=== PATIENT | female | born 1930 | race Caucasian/White ===

== ENCOUNTER 2016-11-24 15:24 | Inpatient (IN) | payer MEDICARE, OTHER ==
[~2016-11-24] VITALS: Ht 152.4 cm; Wt 45.4 kg
[2016-11-24 15:24] VITALS: BP 124/84
[~2016-11-24 15:24] MED LIST: AMIODARONE HCL100 MG ORAL; AMIODARONE HCL200 MG ORAL; AMIODARONE HCL400 M1 ORAL; ASPIR-LOW81 MG PO; AZITHROMYCIN500 MG PO; CRESTOR20 MG PO; DONEPEZIL HCL5 M2 ORAL; FEMARA2.5 MG PO; HYDRALAZINE HCL25 M1 PO; LEVOTHROID25 MCG PO; METOPROLOL TART25 MG PO; METRONIDAZOLE500 MG ORAL; SIMVASTATIN20 MG ORAL; VITAMIN B COMP1 EAC2 ORAL; VITAMIN D1000 UNI1 ORAL
[2016-11-24] MEDS ORDERED: ASPIR 8181 MG ORAL (15:25)
[2016-11-24] MEDS ORDERED: AMIODARONE HCL400 M1 ORAL (15:25)
[2016-11-24 16:20] VITALS: BP 128/74
--- NOTE | 2016-11-24 16:31 | Diagnostic Imaging Report ---
Indication: PAIN Technique: One view of the pelvis, 2 views of the left hip Comparison: None Findings: There is a comminuted intertrochanteric fracture of the left hip. Again demonstrated are old healed fracture deformities of the bilateral inferior and right superior pubic rami. Right hip appears intact. There are degenerative changes of the lumbosacral junction Impression: Positive for left hip comminuted intertrochanteric fracture Old pelvic fractures, also previously described
--- NOTE | 2016-11-24 16:33 | Diagnostic Imaging Report ---
Indication: PAIN Technique: 3 views of the left knee Comparison: None Findings:There are severe degenerative changes of the medial and lateral compartment. There is marked degenerative remodeling of the medial femur and medial tibia. Ossific densities injection of the knee joint likely reflect intra-articular loose bodies. There is suggestion of a suprapatellar effusion. No definite acute fractures. No dislocations. There are vascular calcifications Impression:No definite acute bony trauma Profound degenerative changes, as described Suspect intra-articular loose bodies Suspect joint effusion
[2016-11-24 17:12] LABS: BASOPHILS % (AUTO) 0.8 % (0.0-2.0); EOSINOPHILS % (AUTO) 0.7 % (0.0-3.0); MEAN CORPUSCULAR HEMOGLOBIN 32.5 PG (27.0-31.0); MEAN CORPUSCULAR HGB CONC 33.9 G/DL (32.0-36.0); MEAN CORPUSCULAR VOLUME 96 FL (80-99); MEAN PLATELET VOLUME 6.3 FL (6.5-10.1); MONOCYTES % (AUTO) 5.8 % (1.0-10.0); NEUTROPHILS % (AUTO) 77.7 % (45.0-75.0); PLATELET COUNT 210 K/UL (150-450); RED BLOOD COUNT 3.08 M/UL (4.20-5.40); RED CELL DISTRIBUTION WIDTH 15.4 % (11.6-14.8); WHITE BLOOD COUNT 8.8 K/UL (4.8-10.8)
[2016-11-24 17:17] LABS: PROTHROMBIN TIME 10.3 SEC (9.30-11.50)
[2016-11-24 17:29] LABS: ALANINE AMINOTRANSFERASE 9 U/L (3-33); ALBUMIN/GLOBULIN RATIO 1.6 (1.0-2.7); ANION GAP 12 (5-15); ASPARTATE AMINO TRANSFERASE 14 U/L (5-40); CALCIUM 9.6 mg/dL (8.6-10.2); CARBON DIOXIDE 24 mEQ/L (20-30); CHLORIDE 103 mEQ/L (98-107); CREATININE 2.7 mg/dL (0.5-0.9); HEMOLYSIS 3; POTASSIUM 4.8 mEQ/L (3.4-4.9); SODIUM 139 mEQ/L (135-145); TOTAL PROTEIN 5.3 g/dL (6.6-8.7)
[2016-11-24 17:53] VITALS: BP 124/84
[2016-11-24 19:30] VITALS: BP 120/78
[2016-11-24 20:05] VITALS: BP 137/95
[2016-11-24] MEDS ORDERED: Zolpidem 5mg tab ORAL PRN (21:15)
[2016-11-24] MEDS ORDERED: Mylanta II UD 30ml ORAL PRN (21:15)
[2016-11-24] MEDS ORDERED: Miralax 17gm pkt ORAL PRN (21:15)
[2016-11-24] MEDS ORDERED: LORazepam Inj 2mg/ml 1ml IV PRN (21:15)
[2016-11-24] MEDS: D5 1/2NS 1,000 ML IV SCH (21:55)
[2016-11-24] MEDS: Heparin 5000 units/ml inj SUBQ SCH (22:30)
--- NOTE | 2016-11-24 23:46 | Emergency Room Report ---
History of Present Illness General Chief Complaint: Lower Extremity Injury Source: Patient, Family Member - Daughter, EMS (GREG FOY) Present Illness HPI The patient is an 86-year-old female with a history of dementia brought in by EMS and accompanied by daughter for left hip pain. The patient was said to be ambulating via Walker and fell onto the left hip from ground level. Patient is unable to express level of pain. The patient does not provide any history. The daughter states patient did not hit her head or lose consciousness. She denies any other symptoms for the patient (GREG FOY P.AMiriam) Allergies: Coded Allergies: MORPHINE (Verified Allergy, Mild, 03/02/09) HYDROMORPHONE (Verified Allergy, Unknown, 01/13/11) Patient History Past Medical History: see triage record Pertinent Family History: none Reviewed Nursing Documentation: PMH: Agreed, PSxH: Agreed (GREG FOY) Nursing Documentation-PMH Hx Cardiac Problems: Yes - afib, arthitis, kidney prob Hx Hypertension: Yes Hx COPD: Yes Hx Cancer: Yes Hx Gastrointestinal Problems: Yes Hx Dialysis: Yes - non-specfic kdney issue Hx Neurological Problems: Yes - dementia Hx Dementia: Yes Hx Dizziness: Yes Hx Syncope: Yes Hx Weakness: Yes (GREG FOY PMiriamAMiriam) Review of Systems All Other Systems: limited (GREG FOY.AMiriam) Physical Exam Vital Signs Date Time Temp Pulse Resp B/P (MAP) Pulse Ox O2 Delivery O2 Flow Rate FiO2 11/24/16 15:19 98.4 84 16 124/84 99 Room Air Sp02 EP Interpretation: reviewed, normal General Appearance: alert, GCS 15 Head: normocephalic, atraumatic Eyes: bilateral eye normal inspection, bilateral eye PERRL ENT: hearing grossly normal, normal pharynx, no angioedema, normal voice Neck: full range of motion, supple/symm/no masses Respiratory: chest non-tender, lungs clear, normal breath sounds, speaking full sentences Cardiovascular #1: regular rate, rhythm, no edema Gastrointestinal: normal bowel sounds, non tender, soft, non-distended, no guarding, no rebound Musculoskeletal: normal inspection, decreased range of motion, tender - TTP over the L inguinal region and L lateral hip Neurologic: responsive, sensory intact Skin: normal color, no rash, warm/dry, well hydrated (GREG FOY) Medical Decision Making PA Attestation Dr. Serrano is my supervising physician. Patient management was discussed with my supervising physician (GREG FOY) Medicare Attestation The history of Juana Mendez has been reviewed and management options for her have been examined and discussed by Allie Serrano. I have personally examined and interviewed the patient. (ALLIE SERRANO D.O.) Diagnostic Impression: Primary Impression: Hip fracture, intertrochanteric Qualified Codes: S72.145A - Nondisplaced intertrochanteric fracture of left femur, initial encounter for closed fracture ER Course The patient is an 86-year-old female presenting for left hip pain after fall Ddx considered include but not limited to sprain/strain, fracture, contusion Physical exam: Patient with dementia. Unable to follow commands. There is noted tenderness to palpation over the left inguinal region and left lateral hip. No rotation of the leg. No shortening. Sensation intact Normal cap refill X-ray and CT shows comminuted fracture of the left trochanter. The patient will be admitted in stable condition. The daughter agrees with this plan. Dr. Serrano Has spoken with the admitting physician she will be admitted in serious but stable condition. Laboratory Tests Test 11/24/16 16:50 White Blood Count 8.8 K/UL (4.8-10.8) Red Blood Count 3.08 M/UL (4.20-5.40) L Hemoglobin 10.0 G/DL (12.0-16.0) L Hematocrit 29.5 % (37.0-47.0) L Mean Corpuscular Volume 96 FL (80-99) Mean Corpuscular Hemoglobin 32.5 PG (27.0-31.0) H Mean Corpuscular Hemoglobin Concent 33.9 G/DL (32.0-36.0) Red Cell Distribution Width 15.4 % (11.6-14.8) H Platelet Count 210 K/UL (150-450) Mean Platelet Volume 6.3 FL (6.5-10.1) L Neutrophils (%) (Auto) 77.7 % (45.0-75.0) H Lymphocytes (%) (Auto) 15.0 % (20.0-45.0) L Monocytes (%) (Auto) 5.8 % (1.0-10.0) Eosinophils (%) (Auto) 0.7 % (0.0-3.0) Basophils (%) (Auto) 0.8 % (0.0-2.0) Prothrombin Time 10.3 SEC (9.30-11.50) Prothrombin Time INR 1.0 (0.9-1.1) PTT 29 SEC (23-33) Sodium Level 139 mEQ/L (135-145) Potassium Level 4.8 mEQ/L (3.4-4.9) Chloride Level 103 mEQ/L (98-107) Carbon Dioxide Level 24 mEQ/L (20-30) Anion Gap 12 (5-15) Blood Urea Nitrogen 25 mg/dL (7-23) H Creatinine 2.7 mg/dL (0.5-0.9) H Estimate Glomerular Filtration Rate mL/min (>60) Glucose Level 126 mg/dL (74-106) H Calcium Level 9.6 mg/dL (8.6-10.2) Total Bilirubin 0.2 mg/dL (0.0-1.2) Aspartate Amino Transferase (AST) 14 U/L (5-40) Alanine Aminotransferase (ALT) 9 U/L (3-33) Alkaline Phosphatase 58 U/L (35-104) Total Protein 5.3 g/dL (6.6-8.7) L Albumin 3.3 g/dL (3.5-5.2) L Globulin 2.0 g/dL Albumin/Globulin Ratio 1.6 (1.0-2.7) Lab Results Impression CBC shows no leukocytosis. There is mild anemia CMP shows significantly elevated BUN/Cr Coags unremarkable (GREG FOY P.A.) Chest X-Ray Diagnostic Results Chest X-Ray Diagnostic Results : Chest X-Ray Ordered: Yes # of Views/Limited/Complete: 1 View Indication: Other - fall EP Interpretation: Yes Interpretation: no consolidation, no effusion, no pneumothorax, no acute cardiopulmonary disease Impression: No acute disease Electronically Signed by: Denise Serrano DO (GREG FOY P.A.) Other X-Ray Diagnostic Results Other X-Ray Diagnostic Results #1: X-Ray ordered: L hip # of Views/Limited Vs Complete: 2 View Indication: Pain EP Interpretation: Yes Interpretation: no dislocation, other - + fracture Impression: Other - intertrochanteric fracture Electronically Signed by: DO GRAHAM Carroll Scribe Text I am acting as scribe for my supervising physician. My supervising physician's interpretation of the left hip x-rays shows intertrochanteric fracture Other X-Ray Diagnostic Results #2: X-Ray ordered: AP Pelvis # of Views/Limited Vs Complete: 1 View Indication: Pain EP Interpretation: Yes Interpretation: no dislocation, no soft tissue swelling, other - + Fracture Impression: Other - L Intertrochanteric fracture Electronically Signed by: DO GRAHAM Carroll Scribe Text I am acting as scribe for my supervising physician. My supervising physician's interpretation of the hip x-rays shows intertrochanteric fracture (GREG FOY) CT/MRI/US Diagnostic Results CT/MRI/US Diagnostic Results : Imaging Test Ordered: CT pelvis Impression There is an acute fracture of the left trochanter (GREG FOY) Last Vital Signs Date Time Temp Pulse Resp B/P (MAP) Pulse Ox O2 Delivery O2 Flow Rate FiO2 11/24/16 22:53 98.1 11/24/16 20:05 61 18 137/95 100 Room Air Status: improved (GREG FOY) Disposition: ADMITTED INPATIENT Condition: Stable Referrals: NON PHYSICIAN (PCP) GREG FOY Nov 24, 2016 23:45 ALLIE SERRANO D.O. Nov 25, 2016 18:18
[2016-11-25 04:00] VITALS: BP 133/84
[2016-11-25 06:25] LABS: BASOPHILS % (AUTO) 0.6 % (0.0-2.0); EOSINOPHILS % (AUTO) 0.6 % (0.0-3.0); LYMPHOCYTES % (AUTO) 17.5 % (20.0-45.0); MEAN CORPUSCULAR HEMOGLOBIN 32.2 PG (27.0-31.0); MEAN CORPUSCULAR HGB CONC 33.8 G/DL (32.0-36.0); MEAN CORPUSCULAR VOLUME 95 FL (80-99); MEAN PLATELET VOLUME 6.3 FL (6.5-10.1); MONOCYTES % (AUTO) 6.7 % (1.0-10.0); NEUTROPHILS % (AUTO) 74.6 % (45.0-75.0); PLATELET COUNT 206 K/UL (150-450); RED BLOOD COUNT 3.08 M/UL (4.20-5.40); RED CELL DISTRIBUTION WIDTH 14.8 % (11.6-14.8); WHITE BLOOD COUNT 9.5 K/UL (4.8-10.8)
[2016-11-25 06:38] LABS: ALANINE AMINOTRANSFERASE 10 U/L (3-33); ALBUMIN/GLOBULIN RATIO 1.7 (1.0-2.7); ANION GAP 11 (5-15); ASPARTATE AMINO TRANSFERASE 13 U/L (5-40); CALCIUM 9.6 mg/dL (8.6-10.2); CARBON DIOXIDE 24 mEQ/L (20-30); CHLORIDE 105 mEQ/L (98-107); CREATININE 2.6 mg/dL (0.5-0.9); HEMOLYSIS 0; POTASSIUM 4.9 mEQ/L (3.4-4.9); SODIUM 140 mEQ/L (135-145); TOTAL PROTEIN 5.2 g/dL (6.6-8.7)
[2016-11-25 08:33] VITALS: BP 130/53
--- NOTE | 2016-11-25 08:37 | Consultation ---
History of Present Illness General Date patient seen: Nov 25, 2016 Present Illness Allergies: Coded Allergies: MORPHINE (Verified Allergy, Mild, 03/02/09) HYDROMORPHONE (Verified Allergy, Unknown, 01/13/11) Medication History Scheduled Amiodarone Hcl (Amiodarone Hcl), 100 MG ORAL DAILY, (Reported) Amiodarone Hcl* (Amiodarone Hcl*), 400 MG ORAL EVERY 12 HOURS, (Reported) Aspirin* (Aspir-Low*), 81 MG PO DAILY, (Reported) Aspirin* (Aspir 81*), 81 MG ORAL DAILY, (Reported) Cholecalciferol (Vitamin D3)* (Vitamin D*), 5,000 UNIT ORAL DAILY, (Reported) Donepezil Hcl* (Donepezil Hcl*), 5 MG ORAL DAILY, (Reported) Letrozole (Femara), 2.5 MG PO DAILY, (Reported) Levothyroxine Sodium* (Levothroid*), MCG PO DAILY, (Reported) Simvastatin (Zocor), 20 MG ORAL BEDTIME, (Reported) Vitamin B Complex (Vitamin B Complex), 2 CAP ORAL DAILY, (Reported) Patient History Healthcare decision maker Resuscitation status Full Code Advanced Directive on File Physical Exam Last 24 Hour Vital Signs Date Time Temp Pulse Resp B/P (MAP) Pulse Ox O2 Delivery O2 Flow Rate FiO2 11/25/16 08:33 97.8 61 20 130/53 97 Room Air 11/25/16 04:00 98.2 67 20 133/84 98 Room Air 11/24/16 22:53 98.1 11/24/16 20:05 98.1 61 18 137/95 100 Room Air 11/24/16 19:53 98.4 80 17 120/78 98 Room Air 11/24/16 19:30 98.4 80 17 120/78 98 Room Air 11/24/16 17:53 98.4 16 124/84 99 Room Air 11/24/16 16:48 98.4 11/24/16 16:20 98.1 84 16 128/74 98 Room Air 11/24/16 15:24 98.4 16 124/84 99 Room Air 11/24/16 15:19 98.4 84 16 124/84 99 Room Air Laboratory Tests Test 11/24/16 16:50 11/25/16 05:30 White Blood Count 8.8 K/UL (4.8-10.8) 9.5 K/UL (4.8-10.8) Red Blood Count 3.08 M/UL (4.20-5.40) L 3.08 M/UL (4.20-5.40) L Hemoglobin 10.0 G/DL (12.0-16.0) L 9.9 G/DL (12.0-16.0) L Hematocrit 29.5 % (37.0-47.0) L 29.3 % (37.0-47.0) L Mean Corpuscular Volume 96 FL (80-99) 95 FL (80-99) Mean Corpuscular Hemoglobin 32.5 PG (27.0-31.0) H 32.2 PG (27.0-31.0) H Mean Corpuscular Hemoglobin Concent 33.9 G/DL (32.0-36.0) 33.8 G/DL (32.0-36.0) Red Cell Distribution Width 15.4 % (11.6-14.8) H 14.8 % (11.6-14.8) Platelet Count 210 K/UL (150-450) 206 K/UL (150-450) Mean Platelet Volume 6.3 FL (6.5-10.1) L 6.3 FL (6.5-10.1) L Neutrophils (%) (Auto) 77.7 % (45.0-75.0) H 74.6 % (45.0-75.0) Lymphocytes (%) (Auto) 15.0 % (20.0-45.0) L 17.5 % (20.0-45.0) L Monocytes (%) (Auto) 5.8 % (1.0-10.0) 6.7 % (1.0-10.0) Eosinophils (%) (Auto) 0.7 % (0.0-3.0) 0.6 % (0.0-3.0) Basophils (%) (Auto) 0.8 % (0.0-2.0) 0.6 % (0.0-2.0) Prothrombin Time 10.3 SEC (9.30-11.50) Prothromb Time International Ratio 1.0 (0.9-1.1) Activated Partial Thromboplast Time 29 SEC (23-33) Sodium Level 139 mEQ/L (135-145) 140 mEQ/L (135-145) Potassium Level 4.8 mEQ/L (3.4-4.9) 4.9 mEQ/L (3.4-4.9) Chloride Level 103 mEQ/L (98-107) 105 mEQ/L (98-107) Carbon Dioxide Level 24 mEQ/L (20-30) 24 mEQ/L (20-30) Anion Gap 12 (5-15) 11 (5-15) Blood Urea Nitrogen 25 mg/dL (7-23) H 24 mg/dL (7-23) H Creatinine 2.7 mg/dL (0.5-0.9) H 2.6 mg/dL (0.5-0.9) H Estimat Glomerular Filtration Rate mL/min (>60) mL/min (>60) Glucose Level 126 mg/dL (74-106) H 129 mg/dL (74-106) H Calcium Level 9.6 mg/dL (8.6-10.2) 9.6 mg/dL (8.6-10.2) Total Bilirubin 0.2 mg/dL (0.0-1.2) 0.4 mg/dL (0.0-1.2) Aspartate Amino Transf (AST/SGOT) 14 U/L (5-40) 13 U/L (5-40) Alanine Aminotransferase (ALT/SGPT) 9 U/L (3-33) 10 U/L (3-33) Alkaline Phosphatase 58 U/L (35-104) 61 U/L (35-104) Total Protein 5.3 g/dL (6.6-8.7) L 5.2 g/dL (6.6-8.7) L Albumin 3.3 g/dL (3.5-5.2) L 3.3 g/dL (3.5-5.2) L Globulin 2.0 g/dL 1.9 g/dL Albumin/Globulin Ratio 1.6 (1.0-2.7) 1.7 (1.0-2.7) Thyroid Stimulating Hormone (TSH) 2.590 uIU/mL (0.300-4.500) Height (Feet): 5 Height (Inches): 0.00 Weight (Pounds): 100 Medications Current Medications Medications (Trade) Dose Ordered Sig/Dustin Route PRN Reason Start Time Stop Time Status Last Admin Dose Admin Acetaminophen (Tylenol) 650 mg Q4H PRN ORAL fever 11/24/16 21:15 12/24/16 21:14 11/24/16 21:54 Al Hydroxide/Mg Hydroxide (Mylanta II) 30 ml Q6H PRN ORAL dyspepsia 11/24/16 21:15 12/24/16 21:14 Amiodarone HCl (Cordarone) 100 mg DAILY ORAL 11/25/16 09:00 12/25/16 08:59 Dextrose (Dextrose 50%) STAT PRN IV Hypoglycemia 11/24/16 21:15 12/24/16 21:14 Dextrose/Sodium Chloride 1,000 ml @ 50 mls/hr Q20H IV 11/24/16 21:45 12/24/16 21:44 11/24/16 21:55 Donepezil HCl (Aricept) 5 mg DAILY ORAL 11/25/16 09:00 12/25/16 08:59 Heparin Sodium (Porcine) (Heparin 5000 units/ml) 5,000 units EVERY 12 HOURS SUBQ 11/24/16 22:30 12/24/16 22:29 Lorazepam (Ativan 2mg/ml 1ml) 0.5 mg Q4H PRN IV For Anxiety 11/24/16 21:15 12/01/16 21:14 Ondansetron HCl (Zofran) 4 mg Q6H PRN IVP Nausea & Vomiting 11/24/16 21:15 12/24/16 21:14 Polyethylene Glycol (Miralax) 17 gm HSPRN PRN ORAL Constipation 11/24/16 21:15 12/24/16 21:14 Zolpidem Tartrate (Ambien) 5 mg HSPRN PRN ORAL Insomnia 11/24/16 21:15 12/01/16 21:14 Assessment/Plan Assessment/Plan (1) Left hip pain (2) Left hip fracture (3) Arthritis seen dictated SANTIAGO SANTOS Nov 25, 2016 08:37
[2016-11-25] MEDS: Amiodarone 200mg tab ORAL SCH (08:56)
[2016-11-25] MEDS: Heparin 5000 units/ml inj SUBQ SCH ×2 (08:58→20:18)
[2016-11-25] MEDS: Donepezil 5mg Tab ORAL SCH (09:00)
[2016-11-25 11:38] VITALS: BP 97/56
[2016-11-25] MEDS: D5 1/2NS 1,000 ML IV SCH (12:06)
--- NOTE | 2016-11-25 12:37 | Diagnostic Imaging Report ---
Indication: Chest pain Comparison: 05/22/15 A single view chest radiograph was obtained. Findings: There is a left arm port with tip in the right atrium in good position. The bones are osteopenic. Lungs are clear. Borderline cardiomegaly is present. Scoliosis of the thoracolumbar spine demonstrated. Surgical clips in the right upper quadrant of the abdomen noted. Impression: No acute cardiopulmonary abnormalities.
--- NOTE | 2016-11-25 15:51 | History and Physical ---
History of Present Illness General Date patient seen: Nov 25, 2016 Reason for Hospitalization: Lower Extremity Injury Present Illness HPI 86 year old female with hx of advanced dementia, brought in to [facility] er after an episode of fall. Pt was diagnosed to have a hip fracture. Pts daughter wants her to be transferred to [facility] and have surgery there. Pt looks cachectic and older than her biological age. Allergies: Coded Allergies: MORPHINE (Verified Allergy, Mild, 03/02/09) HYDROMORPHONE (Verified Allergy, Unknown, 01/13/11) Medication History Scheduled Amiodarone Hcl (Amiodarone Hcl), 100 MG ORAL DAILY, (Reported) Amiodarone Hcl* (Amiodarone Hcl*), 400 MG ORAL EVERY 12 HOURS, (Reported) Aspirin* (Aspir-Low*), 81 MG PO DAILY, (Reported) Aspirin* (Aspir 81*), 81 MG ORAL DAILY, (Reported) Cholecalciferol (Vitamin D3)* (Vitamin D*), 5,000 UNIT ORAL DAILY, (Reported) Donepezil Hcl* (Donepezil Hcl*), 5 MG ORAL DAILY, (Reported) Letrozole (Femara), 2.5 MG PO DAILY, (Reported) Levothyroxine Sodium* (Levothroid*), MCG PO DAILY, (Reported) Simvastatin (Zocor), 20 MG ORAL BEDTIME, (Reported) Vitamin B Complex (Vitamin B Complex), 2 CAP ORAL DAILY, (Reported) Patient History Healthcare decision maker Resuscitation status Full Code Advanced Directive on File Past Medical/Surgical History Past Medical/Surgical History: (1) Dementia (2) Hypothyroid (3) Breast cancer Review of Systems All Other Systems: negative except mentioned in HPI Physical Exam General Appearance: cachetic Lines, tubes and drains: peripheral HEENT: normocephalic, atraumatic Neck: non-tender, normal alignment Respiratory/Chest: chest wall non-tender, lungs clear Breasts: no masses Cardiovascular/Chest: normal peripheral pulses, normal rate Abdomen: normal bowel sounds Genitourinary/Rectal: normal genital exam Extremities: normal range of motion, non-tender Skin Exam: normal pigmentation Neurologic: dukey rider II-XII grossly normal, no motor/sensory deficits Lymphatic: anterior cervical Last 24 Hour Vital Signs Date Time Temp Pulse Resp B/P (MAP) Pulse Ox O2 Delivery O2 Flow Rate FiO2 11/25/16 11:38 97.6 69 20 97/56 96 Room Air 11/25/16 10:12 97.6 11/25/16 08:33 97.8 61 20 130/53 97 Room Air 11/25/16 04:00 98.2 67 20 133/84 98 Room Air 11/24/16 22:53 98.1 11/24/16 20:05 98.1 61 18 137/95 100 Room Air 11/24/16 19:53 98.4 80 17 120/78 98 Room Air 11/24/16 19:30 98.4 80 17 120/78 98 Room Air 11/24/16 17:53 98.4 16 124/84 99 Room Air 11/24/16 16:48 98.4 11/24/16 16:20 98.1 84 16 128/74 98 Room Air Intake and Output 11/25/16 11/26/16 19:00 07:00 Intake Total 220 ml Output Total 350 ml Balance -130 ml Intake Oral 220 ml Output Urine Total 350 ml Laboratory Tests Test 11/24/16 16:50 11/25/16 05:30 White Blood Count 8.8 K/UL (4.8-10.8) 9.5 K/UL (4.8-10.8) Red Blood Count 3.08 M/UL (4.20-5.40) L 3.08 M/UL (4.20-5.40) L Hemoglobin 10.0 G/DL (12.0-16.0) L 9.9 G/DL (12.0-16.0) L Hematocrit 29.5 % (37.0-47.0) L 29.3 % (37.0-47.0) L Mean Corpuscular Volume 96 FL (80-99) 95 FL (80-99) Mean Corpuscular Hemoglobin 32.5 PG (27.0-31.0) H 32.2 PG (27.0-31.0) H Mean Corpuscular Hemoglobin Concent 33.9 G/DL (32.0-36.0) 33.8 G/DL (32.0-36.0) Red Cell Distribution Width 15.4 % (11.6-14.8) H 14.8 % (11.6-14.8) Platelet Count 210 K/UL (150-450) 206 K/UL (150-450) Mean Platelet Volume 6.3 FL (6.5-10.1) L 6.3 FL (6.5-10.1) L Neutrophils (%) (Auto) 77.7 % (45.0-75.0) H 74.6 % (45.0-75.0) Lymphocytes (%) (Auto) 15.0 % (20.0-45.0) L 17.5 % (20.0-45.0) L Monocytes (%) (Auto) 5.8 % (1.0-10.0) 6.7 % (1.0-10.0) Eosinophils (%) (Auto) 0.7 % (0.0-3.0) 0.6 % (0.0-3.0) Basophils (%) (Auto) 0.8 % (0.0-2.0) 0.6 % (0.0-2.0) Prothrombin Time 10.3 SEC (9.30-11.50) Prothromb Time International Ratio 1.0 (0.9-1.1) Activated Partial Thromboplast Time 29 SEC (23-33) Sodium Level 139 mEQ/L (135-145) 140 mEQ/L (135-145) Potassium Level 4.8 mEQ/L (3.4-4.9) 4.9 mEQ/L (3.4-4.9) Chloride Level 103 mEQ/L (98-107) 105 mEQ/L (98-107) Carbon Dioxide Level 24 mEQ/L (20-30) 24 mEQ/L (20-30) Anion Gap 12 (5-15) 11 (5-15) Blood Urea Nitrogen 25 mg/dL (7-23) H 24 mg/dL (7-23) H Creatinine 2.7 mg/dL (0.5-0.9) H 2.6 mg/dL (0.5-0.9) H Estimat Glomerular Filtration Rate mL/min (>60) mL/min (>60) Glucose Level 126 mg/dL (74-106) H 129 mg/dL (74-106) H Calcium Level 9.6 mg/dL (8.6-10.2) 9.6 mg/dL (8.6-10.2) Total Bilirubin 0.2 mg/dL (0.0-1.2) 0.4 mg/dL (0.0-1.2) Aspartate Amino Transf (AST/SGOT) 14 U/L (5-40) 13 U/L (5-40) Alanine Aminotransferase (ALT/SGPT) 9 U/L (3-33) 10 U/L (3-33) Alkaline Phosphatase 58 U/L (35-104) 61 U/L (35-104) Total Protein 5.3 g/dL (6.6-8.7) L 5.2 g/dL (6.6-8.7) L Albumin 3.3 g/dL (3.5-5.2) L 3.3 g/dL (3.5-5.2) L Globulin 2.0 g/dL 1.9 g/dL Albumin/Globulin Ratio 1.6 (1.0-2.7) 1.7 (1.0-2.7) Thyroid Stimulating Hormone (TSH) 2.590 uIU/mL (0.300-4.500) Height (Feet): 5 Height (Inches): 0.00 Weight (Pounds): 100 Medications Current Medications Medications (Trade) Dose Ordered Sig/Dustin Route PRN Reason Start Time Stop Time Status Last Admin Dose Admin Acetaminophen (Tylenol) 650 mg Q4H PRN ORAL fever or pain 11/25/16 09:15 12/25/16 09:14 11/25/16 09:13 Al Hydroxide/Mg Hydroxide (Mylanta II) 30 ml Q6H PRN ORAL dyspepsia 11/24/16 21:15 12/24/16 21:14 Amiodarone HCl (Cordarone) 100 mg DAILY ORAL 11/25/16 09:00 12/25/16 08:59 11/25/16 08:56 Dextrose (Dextrose 50%) STAT PRN IV Hypoglycemia 11/24/16 21:15 12/24/16 21:14 Dextrose/Sodium Chloride 1,000 ml @ 50 mls/hr Q20H IV 11/24/16 21:45 12/24/16 21:44 11/25/16 12:06 Donepezil HCl (Aricept) 5 mg DAILY ORAL 11/25/16 09:00 12/25/16 08:59 Heparin Sodium (Porcine) (Heparin 5000 units/ml) 5,000 units EVERY 12 HOURS SUBQ 11/24/16 22:30 12/24/16 22:29 11/25/16 08:58 Levothyroxine Sodium (Synthroid) 25 mcg DAILY@0630 ORAL 11/26/16 06:30 12/26/16 06:29 Lidocaine (Lidoderm 5% PATCH) 1 patch DAILY TDERMAL 11/25/16 09:30 12/25/16 09:29 11/25/16 11:34 Lorazepam (Ativan 2mg/ml 1ml) 0.5 mg Q4H PRN IV For Anxiety 11/24/16 21:15 12/01/16 21:14 Ondansetron HCl (Zofran) 4 mg Q6H PRN IVP Nausea & Vomiting 11/24/16 21:15 12/24/16 21:14 Polyethylene Glycol (Miralax) 17 gm HSPRN PRN ORAL Constipation 11/24/16 21:15 12/24/16 21:14 Zolpidem Tartrate (Ambien) 5 mg HSPRN PRN ORAL Insomnia 11/24/16 21:15 12/01/16 21:14 Assessment/Plan Problem List: (1) Hip fracture, intertrochanteric ICD Codes: S72.143A - Displaced intertrochanteric fracture of unspecified femur , initial encounter for closed fracture SNOMED: 767079927 Qualifiers: Qualified Codes: S72.145A - Nondisplaced intertrochanteric fracture of left femur, initial encounter for closed fracture (2) Dementia ICD Codes: F03.90 - Unspecified dementia without behavioral disturbance SNOMED: [id number] (3) Hypothyroid ICD Codes: E03.9 - Hypothyroidism, unspecified SNOMED: 30218545 Assessment/Plan symptomatic treatment pain control case management try to transfer to [facility]. dvt prophylaxis. GILLES ALVAREZ Nov 25, 2016 15:50
[2016-11-25 16:08] VITALS: BP 110/63
[2016-11-25 16:54] LABS: URIC ACID 4.8 mg/dL (3.0-7.5)
--- NOTE | 2016-11-25 17:16 | Consultation ---
DATE OF CONSULTATION: 11/25/2016 PAIN MANAGEMENT CONSULTATION CONSULTING PHYSICIAN: Sugar Anglin M.D. REFERRING PHYSICIAN: Mateo Pearson M.D. PHYSICIAN COMMERCIAL COLLECTOR: Daniel Cuadra CHIEF COMPLAINT: Left hip pain. History Of Present Illness: This is an 86-year-old female, who is being seen on the Med/Surg floor of [facility] for initial comprehensive pain management consultation. The patient is in bed, nonverbal at this time due to the history of dementia. The patient's daughter is at bedside. The patient's daughter reports that the patient had a fall, injuring her left hip, found to have on x-ray a fracture, and was admitted under the care of Dr. Pearson, at this time waiting Orthopedic consultation, possible transfer to the [facility]. At this time, the patient is in bed, no signs of pain, receiving Tylenol as needed. The patient's daughter reports that patient has been allergic to morphine and hydromorphone and does not want the patient to have any narcotics at this time. Discussed with the patient's daughter about possible Lidoderm patch and the patient's daughter agrees. The patient again is in the bed, no signs of pain or distress at this time. Past Medical History: Atrial fibrillation, arthritis, kidney problems, hypertension, COPD, history of lymphoma, GERD, and dementia. PAST SURGICAL HISTORY: Gallbladder removal and cataract surgery. ALLERGIES: Morphine and hydromorphone. Social History: As per daughter smoking cigarettes, drinking alcohol, and IV drug abuse. Review Of Systems: Unable to obtain due to the patient's mental status. PHYSICAL EXAMINATION: GENERAL: Alert, awake, and oriented. Vital Signs: Blood pressure 130/53, heart rate is 61, oxygen saturation 97%, respiratory rate is 20, and temperature is 97.8 degrees Fahrenheit. HEENT: PERRLA. Neck: Range of motion is full in all directions. No tenderness to paracervical muscles. No adenopathy. LUNGS: Clear. HEART: S1 and S2 is regular. ABDOMEN: Benign. Back: Range of motion is full in flexion and extension with no tenderness to paracervical muscles, trapezius, or rhomboid muscles. Extremities: Upper extremity range of motion is full in all directions. Motor is intact. No cyanosis. No clubbing. No edema. Sensory is intact. Reflexes are unobtainable. No adenopathy. Lower extremity range of motion is decreased due to the patient's medical condition with tenderness to palpation of the left hip. No cyanosis. No clubbing. Sensory is intact. Reflexes are unobtainable. No adenopathy. Assessment And Plan: This is an 86-year-old female with left hip pain, left hip fracture, and arthritis. The patient will be continued on Tylenol as needed 650 mg tablet every four hours as needed for pain and we will order a Lidoderm patch to be applied to the left hip at the site of the pain 12 hours on and 12 hours off. The patient to be seen by Orthopedic surgeon. The patient was discussed with Dr. Anglin and Dr. Anglin concurred. We will follow the patient. Thank you very much for the courtesy of this consultation. Sugar Anglin M.D. GRAHAM Cuadra DR: LUNA JOB#: [id number] CC:
[2016-11-25 20:00] VITALS: BP 117/59
[2016-11-26] VITALS: BP 127/55
[2016-11-26] MEDS ORDERED: Levothyroxine 25mcg tab ORAL SCH (06:30)
[2016-11-26 06:47] LABS: BASOPHILS % (AUTO) 0.5 % (0.0-2.0); EOSINOPHILS % (AUTO) 0.5 % (0.0-3.0); LYMPHOCYTES % (AUTO) 14.1 % (20.0-45.0); MEAN CORPUSCULAR HGB CONC 32.4 G/DL (32.0-36.0); MEAN CORPUSCULAR VOLUME 96 FL (80-99); MEAN PLATELET VOLUME 5.8 FL (6.5-10.1); MONOCYTES % (AUTO) 5.6 % (1.0-10.0); NEUTROPHILS % (AUTO) 79.4 % (45.0-75.0); PLATELET COUNT 205 K/UL (150-450); RED BLOOD COUNT 3.14 M/UL (4.20-5.40); RED CELL DISTRIBUTION WIDTH 15.3 % (11.6-14.8); WHITE BLOOD COUNT 10.2 K/UL (4.8-10.8)
[2016-11-26] MEDS: D5 1/2NS 1,000 ML IV SCH (06:54)
[2016-11-26 07:08] LABS: LACTATE DEHYDROGENASE 162 U/L (135-230)
[2016-11-26 07:35] LABS: HEMOLYSIS 0; IRON 29 ug/dL (37-145); TOTAL IRON BINDING CAPACITY 143 ug/dL (250-400)
--- NOTE | 2016-11-26 08:12 | General Progress Note ---
Assessment/Plan Assessment/Plan (1) Left hip pain (2) Left hip fracture (3) Arthritis Pt to be continued on current medications. Awaiting Ortho Eval. D/w Dr. Anglin and he concurred. Subjective Date patient seen: Nov 26, 2016 Time patient seen: 07:15 - am ROS Limited/Unobtainable: Yes Allergies: Coded Allergies: MORPHINE (Verified Allergy, Mild, 03/02/09) HYDROMORPHONE (Verified Allergy, Unknown, 01/13/11) Subjective Patient is in bed no signs of pain or distress at this time. Waiting for ortho eval. Objective Last 24 Hour Vital Signs Date Time Temp Pulse Resp B/P (MAP) Pulse Ox O2 Delivery O2 Flow Rate FiO2 11/26/16 00:00 98.0 65 20 127/55 97 Room Air 11/25/16 20:00 97.7 62 20 117/59 97 Room Air 11/25/16 16:08 97.1 68 21 110/63 96 Room Air 11/25/16 11:38 97.6 69 20 97/56 96 Room Air 11/25/16 10:12 97.6 11/25/16 08:33 97.8 61 20 130/53 97 Room Air Laboratory Tests 11/26/16 05:15: White Blood Count 10.2, Red Blood Count 3.14L, Hemoglobin 9.7L, Hematocrit 30.0L , Mean Corpuscular Volume 96, Mean Corpuscular Hemoglobin 31.0, Mean Corpuscular Hemoglobin Concent 32.4, Red Cell Distribution Width 15.3H, Platelet Count 205, Mean Platelet Volume 5.8L, Neutrophils (%) (Auto) 79.4H, Lymphocytes (%) (Auto) 14.1L, Monocytes (%) (Auto) 5.6, Eosinophils (%) (Auto) 0.5, Basophils (%) (Auto) 0.5, Erythrocyte Sedimentation Rate [Pending], Reticulocyte Count [Pending], Prothrombin Time [Pending], Prothromb Time International Ratio [Pending], Activated Partial Thromboplast Time [Pending], Iron Level 29L, Total Iron Binding Capacity 143L, Percent Iron Saturation 20, Unsaturated Iron Binding 114, Lactate Dehydrogenase 162, Carcinoembryonic Antigen 6.1H, Vitamin B12 Level > 2000H, Folate [Pending] Height (Feet): 5 Height (Inches): 0.00 Weight (Pounds): 100 Objective GENERAL: Alert, awake Neck: Range of motion is full in all directions. No tenderness to paracervical muscles. No adenopathy. LUNGS: Clear. HEART: S1 and S2 is regular. ABDOMEN: Benign. Extremities: No cyanosis. No clubbing. No edema. NEURO: No changes. SANTIAGO SANTOS Nov 26, 2016 08:12
[2016-11-26 08:15] VITALS: BP 93/58
[2016-11-26 08:38] LABS: ERYTHROCYTE SEDIMENTATION RATE 50 MM/HR (0-42)
[2016-11-26] MEDS: Donepezil 5mg Tab ORAL SCH (09:00)
[2016-11-26] MEDS: Amiodarone 200mg tab ORAL SCH (09:04)
[2016-11-26] MEDS: Heparin 5000 units/ml inj SUBQ SCH ×2 (09:05→20:39)
[2016-11-26 10:05] LABS: PATH BLOOD SMEAR/OMC SEND TO PATHOLOGIST
--- NOTE | 2016-11-26 10:58 | Diagnostic Imaging Report ---
Indication: Abnormal renal function test, abnormal glomerular filtration rate Technique: Grayscale and duplex images of the kidneys, retroperitoneum, and bladder were obtained. Comparison:11/20/2005 Findings: Exam is very limited. Patient has a hip fracture and could not be turned. The left kidney there fore not be visualized Right kidney measures 8.5 cm in length. It demonstrates increased echogenicity. No hydronephrosis. There are are multiple cysts in the right kidney, largest measuring 2.3 cm long axis dimension. Normal inferior vena cava. Bladder is normal. Impression: Limited exam, nonvisualization of the left kidney due to immobility of the patient Echogenic slightly atrophic right kidney, consistent with medical renal disease. Negative for hydronephrosis Incidental finding of multiple right renal cysts.
[2016-11-26 12:03] VITALS: BP 157/117
[2016-11-26 12:42] LABS: APPEARANCE,URINE CLEAR; KETONES,URINE NEGATIVE (NEGATIVE); LEUKOCYTE ESTERASE ,URINE NEGATIVE (NEGATIVE); NITRITE,URINE NEGATIVE (NEGATIVE); PH,URINE 6 (4.5-8.0); PROTEIN,URINE 2+ (NEGATIVE); UROBILINOGEN,URINE NORMAL MG/DL (0.0-1.0)
[2016-11-26 12:50] LABS: BACTERIA,URINE FEW /HPF; RBC,URINE 0-2 /HPF (0 - 2); SQUAMOUS EPITHELIAL CELL,UR OCCASIONAL /LPF (NONE/OCC); WBC,URINE 0-2 /HPF (0 - 2)
--- NOTE | 2016-11-26 15:25 | Pulmonology Progress Note ---
Assessment/Plan Problems: (1) Hip fracture, intertrochanteric (2) Dementia (3) Hypothyroid Assessment/Plan pain management surgery stand by if pt's daughter agrees with surgery. dvt prophylaxis Subjective ROS Limited/Unobtainable: Yes Interval Events: daughter still refusing surgery, wants to wait for [place] Allergies: Coded Allergies: MORPHINE (Verified Allergy, Mild, 03/02/09) HYDROMORPHONE (Verified Allergy, Unknown, 01/13/11) Objective Last 24 Hour Vital Signs Date Time Temp Pulse Resp B/P (MAP) Pulse Ox O2 Delivery O2 Flow Rate FiO2 11/26/16 12:03 97.7 71 21 157/117 92 Room Air 11/26/16 08:15 97.9 73 21 93/58 96 Room Air 11/26/16 00:00 98.0 65 20 127/55 97 Room Air 11/25/16 20:00 97.7 62 20 117/59 97 Room Air 11/25/16 16:08 97.1 68 21 110/63 96 Room Air Intake and Output 11/26/16 11/27/16 19:00 07:00 Intake Total 100 ml Balance 100 ml Intake Oral 100 ml General Appearance: cachetic HEENT: normocephalic, atraumatic Respiratory/Chest: chest wall non-tender, lungs clear Breasts: no masses Cardiovascular: normal rate Abdomen: normal bowel sounds Genitourinary: normal external genitalia Extremities: no cyanosis Skin: no ulcers Neurologic/Psychiatric: rack puller II-XII grossly normal Lymphatic: no neck adenopathy Musculoskeletal: normal muscle bulk Laboratory Tests 11/26/16 05:15: White Blood Count 10.2, Red Blood Count 3.14L, Hemoglobin 9.7L, Hematocrit 30.0L , Mean Corpuscular Volume 96, Mean Corpuscular Hemoglobin 31.0, Mean Corpuscular Hemoglobin Concent 32.4, Red Cell Distribution Width 15.3H, Platelet Count 205, Mean Platelet Volume 5.8L, Neutrophils (%) (Auto) 79.4H, Lymphocytes (%) (Auto) 14.1L, Monocytes (%) (Auto) 5.6, Eosinophils (%) (Auto) 0.5, Basophils (%) (Auto) 0.5, Erythrocyte Sedimentation Rate 50H, Reticulocyte Count 0.4, Prothrombin Time 10.0, Prothromb Time International Ratio 1.0, Activated Partial Thromboplast Time 25, Iron Level 29L, Total Iron Binding Capacity 143L, Percent Iron Saturation 20, Unsaturated Iron Binding 114, Lactate Dehydrogenase 162, Carcinoembryonic Antigen 6.1H, Vitamin B12 Level > 2000H, Folate [Pending] 11/26/16 12:29: Urine Color Pale yellow, Urine Appearance Clear, Urine pH 6, Urine Specific [place] 1.010, Urine Protein 2+H, Urine Glucose (UA) 1+H, Urine Ketones Negative , Urine Occult Blood Negative, Urine Nitrite Negative, Urine Bilirubin Negative , Urine Urobilinogen Normal, Urine Leukocyte Esterase Negative, Urine RBC 0-2, Urine WBC 0-2, Urine Squamous Epithelial Cells Occasional, Urine Bacteria Few Current Medications Medications (Trade) Dose Ordered Sig/Dustin Route PRN Reason Start Time Stop Time Status Last Admin Dose Admin Acetaminophen (Tylenol) 650 mg Q4H PRN ORAL fever or pain 11/25/16 09:15 12/25/16 09:14 11/25/16 09:13 Al Hydroxide/Mg Hydroxide (Mylanta II) 30 ml Q6H PRN ORAL dyspepsia 11/24/16 21:15 12/24/16 21:14 Amiodarone HCl (Cordarone) 100 mg DAILY ORAL 11/25/16 09:00 12/25/16 08:59 11/26/16 09:04 Dextrose (Dextrose 50%) STAT PRN IV Hypoglycemia 11/24/16 21:15 12/24/16 21:14 Dextrose/Sodium Chloride 1,000 ml @ 50 mls/hr Q20H IV 11/24/16 21:45 12/24/16 21:44 11/26/16 06:54 Donepezil HCl (Aricept) 5 mg DAILY ORAL 11/25/16 09:00 12/25/16 08:59 Heparin Sodium (Porcine) (Heparin 5000 units/ml) 5,000 units EVERY 12 HOURS SUBQ 11/24/16 22:30 12/24/16 22:29 11/26/16 09:05 Letrozole (Femara) 2.5 mg DAILY ORAL 11/26/16 12:30 12/01/16 12:29 11/26/16 13:09 Levothyroxine Sodium (Synthroid) 25 mcg DAILY@0630 ORAL 9/13/17 06:30 12/26/16 06:29 11/26/16 06:19 Lidocaine (Lidoderm 5% PATCH) 1 patch DAILY TDERMAL 11/25/16 09:30 12/25/16 09:29 11/26/16 09:05 Lorazepam (Ativan 2mg/ml 1ml) 0.5 mg Q4H PRN IV For Anxiety 11/24/16 21:15 12/01/16 21:14 Ondansetron HCl (Zofran) 4 mg Q6H PRN IVP Nausea & Vomiting 11/24/16 21:15 12/24/16 21:14 Polyethylene Glycol (Miralax) 17 gm HSPRN PRN ORAL Constipation 11/24/16 21:15 12/24/16 21:14 Zolpidem Tartrate (Ambien) 5 mg HSPRN PRN ORAL Insomnia 11/24/16 21:15 12/01/16 21:14 GILLES ALVAREZ Nov 26, 2016 15:25
[2016-11-26 15:30] VITALS: BP 160/70
[2016-11-26] MEDS ORDERED: Aspirin EC 81mg tab ORAL SCH (17:00)
[2016-11-26 20:00] VITALS: BP 104/59
--- NOTE | 2016-11-26 22:46 | Consultation ---
DATE OF CONSULTATION: 11/26/2016 NEPHROLOGY CONSULTATION CONSULTING PHYSICIAN: Malcolm Harrison M.D. REFERRING PHYSICIAN: Mateo Pearson M.D. REASON FOR CONSULTATION: Chronic kidney disease. History Of Present Illness: The patient is an 86-year-old lady, who is admitted after ground level fall and had left intertrochanteric hip fracture. She has had chronic kidney disease likely stage 5, recurrent dehydration. She has also had progressive dementia, prior CVA, paroxysmal atrial fibrillation, hypertension. She has been treated in the past for lymphoma and breast cancer, but no active malignancy at this time. She was recently in [facility] with a coagulase-negative Staphylococcus infection due to port infection and the port still remains in the left upper arm. There has been no recent fever or chills. Past Surgical History: Right shoulder surgery, herniorrhaphy, left breast biopsy, lymphoma biopsy, AV fistula right arm, dialysis catheter, multiple ports, and pacemaker. Medications: Medications prior to admission include the following, amiodarone, aspirin, Femara, lactobacillus, zinc sulfate, vitamin D3, levothyroxine, and B complex. ALLERGIES: To Dilaudid, morphine, levofloxacin. REVIEW OF SYSTEMS: The patient is unable. Major problems as above. PHYSICAL EXAMINATION: GENERAL: The patient lying in bed, in no acute distress. Vital Signs: Temperature 97.5, pulse 67, respirations 20, and blood pressure 160/70. HEENT: Sclerae are nonicteric. Ocular motions intact in all directions. Oral mucosa is slightly dry. NECK: No adenopathy or thyroid enlargement. LUNGS: Clear. HEART: Regular rhythm. No murmurs. ABDOMEN: Soft without organomegaly or masses. Extremities: There is some pain around left hip. She has right arm AV fistula. Left arm has a port. There is no edema. Neurologic: She keeps her eyes closed during most of the exam. She is somewhat irritable and moving all extremities and pushing the examiner away. She is confused and disoriented. Pertinent Laboratory Data: BUN 24 and creatinine 2.6. Electrolytes normal. Albumin is 3.3. White count 10.2, hemoglobin 9.7. IMPRESSION: 1. Left hip fracture. 2. Chronic kidney disease stage 5, she is prior on dialysis and discontinued. 3. Anemia of chronic kidney disease. 4. History of breast cancer and lymphoma without any clinical manifestation. 5. Prior cerebrovascular accident. 6. Dementia progressive. 7. History of moderate protein-calorie malnutrition. 8. Recent coagulase-negative Staphylococcus bacteremia, which seems to have resolved. 9. Recurrent dehydration requiring intravenous fluids. Plan: Continue hydration. Prepare for hip surgery. Resume cardiac medicines in view of her history of paroxysmal atrial fibrillation. Malcolm Harrison M.D. DR: Duncan JOB#: [id number] CC:
[2016-11-27] VITALS (11 sets, daily range): BP systolic 102–149; BP diastolic 31–63
[2016-11-27] MEDS: D5 1/2NS 1,000 ML IV SCH (01:56)
[2016-11-27] MEDS ORDERED: Cathflo Alteplase 2mg Inj INJ ONE ×3 (07:00→11:05)
[2016-11-27] MEDS ORDERED: ePHEDrine 50mg/ml Inj ONE (08:00)
[2016-11-27] MEDS ORDERED: Midazolam 2mg/2ml Inj ONE (08:00)
[2016-11-27] MEDS ORDERED: Sodium Chloride 10ml vial INJ ONE (08:00)
[2016-11-27] MEDS ORDERED: Alfentanil 2ml Inj ONE (08:00)
[2016-11-27] MEDS ORDERED: LR 1000ml ONE (08:00)
[2016-11-27] MEDS ORDERED: NS Irrig 1000ml ONE (08:00)
[2016-11-27] MEDS ORDERED: Lidocaine 1% Plain 30 ml INJ ONE (08:00)
[2016-11-27 08:17] LABS: ANION GAP 12 (5-15); CALCIUM 9.1 mg/dL (8.6-10.2); CARBON DIOXIDE 21 mEQ/L (20-30); CHLORIDE 101 mEQ/L (98-107); CREATININE 2.3 mg/dL (0.5-0.9); HEMOLYSIS 1; SODIUM 134 mEQ/L (135-145)
--- NOTE | 2016-11-27 08:52 | General Progress Note ---
Assessment/Plan Assessment/Plan (1) Left hip pain (2) Left hip fracture (3) Arthritis Pt to be continued on current medications. D/w Dr. Anglin and he concurred. Subjective Date patient seen: Nov 27, 2016 Time patient seen: 08:00 - am ROS Limited/Unobtainable: Yes Allergies: Coded Allergies: MORPHINE (Verified Allergy, Mild, 03/02/09) HYDROMORPHONE (Verified Allergy, Unknown, 01/13/11) Subjective The patient shows no signs of pain or distress and is laying in bed. Discussed care with patients daughter who has agreed to surgery and waiting for ortho. Objective Last 24 Hour Vital Signs Date Time Temp Pulse Resp B/P (MAP) Pulse Ox O2 Delivery O2 Flow Rate FiO2 11/27/16 08:25 97.5 86 21 127/51 95 Room Air 11/27/16 00:26 98.4 79 19 102/58 95 Room Air 11/26/16 20:00 98.6 85 18 104/59 95 Room Air 11/26/16 15:30 97.5 67 21 160/70 94 Room Air 11/26/16 12:03 97.7 71 21 157/117 92 Room Air Laboratory Tests 11/26/16 12:29: Urine Color Pale yellow, Urine Appearance Clear, Urine pH 6, Urine Specific [place] 1.010, Urine Protein 2+H, Urine Glucose (UA) 1+H, Urine Ketones Negative , Urine Occult Blood Negative, Urine Nitrite Negative, Urine Bilirubin Negative , Urine Urobilinogen Normal, Urine Leukocyte Esterase Negative, Urine RBC 0-2, Urine WBC 0-2, Urine Squamous Epithelial Cells Occasional, Urine Bacteria Few 11/27/16 06:15: Sodium Level 134L, Potassium Level 5.0H, Chloride Level 101, Carbon Dioxide Level 21, Anion Gap 12, Blood Urea Nitrogen 20, Creatinine 2.3H, Estimat Glomerular Filtration Rate , Glucose Level 122H, Calcium Level 9.1 Height (Feet): 5 Height (Inches): 0.00 Weight (Pounds): 100 Objective GENERAL: Alert, awake Neck: Range of motion is full in all directions. No tenderness to paracervical muscles. No adenopathy. LUNGS: Clear. HEART: S1 and S2 is regular. ABDOMEN: Benign. Extremities: No cyanosis. No clubbing. No edema. NEURO: No changes. SANTIAGO SANTOS Nov 27, 2016 08:52
[2016-11-27] MEDS: Heparin 5000 units/ml inj SUBQ SCH ×2 (09:00→22:12)
[2016-11-27] MEDS: Aspirin Baby 81mg ORAL SCH ×2 (09:00→09:09)
[2016-11-27] MEDS: Donepezil 5mg Tab ORAL SCH (09:00)
[2016-11-27] MEDS: Amiodarone 200mg tab ORAL SCH (09:09)
[2016-11-27 10:39] LABS: RETICULOCYTE COUNT 0.4 % (0.0-2.0)
[2016-11-27 14:13] LABS: BASOPHILS % (AUTO) 0.3 % (0.0-2.0); EOSINOPHILS % (AUTO) 0.1 % (0.0-3.0); LYMPHOCYTES % (AUTO) 10.8 % (20.0-45.0); MEAN CORPUSCULAR HEMOGLOBIN 32.1 PG (27.0-31.0); MEAN CORPUSCULAR HGB CONC 33.1 G/DL (32.0-36.0); MEAN CORPUSCULAR VOLUME 97 FL (80-99); MEAN PLATELET VOLUME 6.2 FL (6.5-10.1); NEUTROPHILS % (AUTO) 83.8 % (45.0-75.0); PLATELET COUNT 203 K/UL (150-450); RED BLOOD COUNT 2.96 M/UL (4.20-5.40); RED CELL DISTRIBUTION WIDTH 14.9 % (11.6-14.8); WHITE BLOOD COUNT 17.3 K/UL (4.8-10.8)
--- NOTE | 2016-11-27 14:37 | Pulmonology Progress Note ---
Assessment/Plan Problems: (1) Hip fracture, intertrochanteric (2) Dementia (3) Hypothyroid Assessment/Plan pain management surgery stand by if pt's daughter agrees with surgery. dvt prophylaxis CEA is elevated, pt followed by Oncology as outpatient Subjective ROS Limited/Unobtainable: No Constitutional: Reports: no symptoms HEENT: Repors: no symptoms Allergies: Coded Allergies: MORPHINE (Verified Allergy, Mild, 03/02/09) HYDROMORPHONE (Verified Allergy, Unknown, 01/13/11) Objective Last 24 Hour Vital Signs Date Time Temp Pulse Resp B/P (MAP) Pulse Ox O2 Delivery O2 Flow Rate FiO2 11/27/16 12:06 97.6 81 20 131/52 95 Room Air 11/27/16 08:25 97.5 86 21 127/51 95 Room Air 11/27/16 00:26 98.4 79 19 102/58 95 Room Air 11/26/16 20:00 98.6 85 18 104/59 95 Room Air 11/26/16 15:30 97.5 67 21 160/70 94 Room Air Intake and Output 11/27/16 11/28/16 19:00 07:00 Intake Total 120 ml Output Total 300 ml Balance -180 ml Intake Oral 120 ml Output Urine Total 300 ml General Appearance: WD/WN HEENT: normocephalic, atraumatic Respiratory/Chest: chest wall non-tender, lungs clear Cardiovascular: normal peripheral pulses, normal rate, regular rhythm Abdomen: normal bowel sounds, soft, non tender Genitourinary: normal external genitalia Extremities: no clubbing Laboratory Tests 11/27/16 06:15: Sodium Level 134L, Potassium Level 5.0H, Chloride Level 101, Carbon Dioxide Level 21, Anion Gap 12, Blood Urea Nitrogen 20, Creatinine 2.3H, Estimat Glomerular Filtration Rate , Glucose Level 122H, Calcium Level 9.1 11/27/16 13:55: White Blood Count 17.3#H, Red Blood Count 2.96L, Hemoglobin 9.5L, Hematocrit 28.7L, Mean Corpuscular Volume 97, Mean Corpuscular Hemoglobin 32.1H, Mean Corpuscular Hemoglobin Concent 33.1, Red Cell Distribution Width 14.9H, Platelet Count 203, Mean Platelet Volume 6.2L, Neutrophils (%) (Auto) 83.8H, Lymphocytes (%) (Auto) 10.8L, Monocytes (%) (Auto) 5.0, Eosinophils (%) (Auto) 0.1, Basophils (%) (Auto) 0.3 Current Medications Medications (Trade) Dose Ordered Sig/Dustin Route PRN Reason Start Time Stop Time Status Last Admin Dose Admin Acetaminophen (Tylenol) 650 mg Q4H PRN ORAL fever or pain 11/25/16 09:15 12/25/16 09:14 11/25/16 09:13 Al Hydroxide/Mg Hydroxide (Mylanta II) 30 ml Q6H PRN ORAL dyspepsia 11/24/16 21:15 12/24/16 21:14 Amiodarone HCl (Cordarone) 100 mg DAILY ORAL 11/25/16 09:00 12/25/16 08:59 11/27/16 09:09 Aspirin (ASA) 81 mg DAILY ORAL 11/27/16 09:00 12/27/16 08:59 Dextrose (Dextrose 50%) STAT PRN IV Hypoglycemia 11/24/16 21:15 12/24/16 21:14 Dextrose/Sodium Chloride 1,000 ml @ 50 mls/hr Q20H IV 11/24/16 21:45 12/24/16 21:44 11/27/16 01:56 Donepezil HCl (Aricept) 5 mg DAILY ORAL 11/25/16 09:00 12/25/16 08:59 Heparin Sodium (Porcine) (Heparin 5000 units/ml) 5,000 units EVERY 12 HOURS SUBQ 11/24/16 22:30 12/24/16 22:29 11/26/16 20:39 Letrozole (Femara) 2.5 mg DAILY ORAL 11/26/16 12:30 12/01/16 12:29 11/27/16 09:09 Levothyroxine Sodium (Synthroid) 100 mcg ACBREAKFAST ORAL 11/27/16 06:30 12/27/16 06:29 11/27/16 06:23 Lidocaine (Lidoderm 5% PATCH) 1 patch DAILY TDERMAL 11/25/16 09:30 12/25/16 09:29 11/27/16 09:19 Lorazepam (Ativan 2mg/ml 1ml) 0.5 mg Q4H PRN IV For Anxiety 11/24/16 21:15 12/01/16 21:14 Ondansetron HCl (Zofran) 4 mg Q6H PRN IVP Nausea & Vomiting 11/24/16 21:15 12/24/16 21:14 Polyethylene Glycol (Miralax) 17 gm HSPRN PRN ORAL Constipation 11/24/16 21:15 12/24/16 21:14 Zolpidem Tartrate (Ambien) 5 mg HSPRN PRN ORAL Insomnia 11/24/16 21:15 12/01/16 21:14 GILLES ALVAREZ Nov 27, 2016 14:37
[2016-11-27] MEDS ORDERED: Bupivacaine 0.5% Inj 30 ml vial INJ ONE (17:15)
[2016-11-27] MEDS ORDERED: Morphine Sulfate PF 10 ML ONE (17:15)
[2016-11-27] MEDS ORDERED: LR 1000ml 1,000 ML IVLG SCH (17:19)
--- NOTE | 2016-11-27 17:24 | Anethesia Preoperative Eval ---
Anesthesia Pre-op PMH/ROS General Date of Evaluation: Nov 27, 2016 Time of Evaluation: 18:08 Anesthesiologist: Willy ASA Score: ASA 4 Mallampati Score Class I : Soft palate, uvula, fauces, pillars visible Class II: Soft palate, uvula, fauces visible Class III: Soft palate, base of uvula visible Class IV: Only hard plate visible Mallampati Classification: Class II Surgeon: Wilmar Diagnosis: L Hip Fx Surgical Procedure: ORIF L Hip Anesthesia History: none Family History: no anesthesia problems Allergies: Coded Allergies: MORPHINE (Verified Allergy, Mild, 03/02/09) HYDROMORPHONE (Verified Allergy, Unknown, 01/13/11) Medications: see eMAR Past Medical History Cardiovascular: Reports: HTN, arrhythmia - AFib, other - HL Pulmonary: Reports: COPD Gastrointestinal/Genitourinary: Reports: GERD, CRI - Dialysis Neurologic/Psychiatric: Reports: dementia Endocrine: Reports: hypothyroidism Hematology/Immune: Reports: anemia, other - Breast CA PSxH Narrative: L Lumpectomy Anesthesia Pre-op Phys. Exam Physician Exam Last Vital Signs Date Time Temp Pulse Resp B/P (MAP) Pulse Ox O2 Delivery O2 Flow Rate FiO2 11/27/16 16:00 97.3 89 20 149/63 95 Room Air Constitutional: NAD Neurologic: CN 2-12 intact Cardiovascular: RRR Respiratory: CTA Gastrointestinal: S/NT/ND Airway Exam Mallampati Score: Class II MO: limited ROM: limited Teeth: missing Anesthesia Pre-op A/P Labs Hematology Test 11/27/16 13:55 White Blood Count 17.3 K/UL (4.8-10.8) #H Red Blood Count 2.96 M/UL (4.20-5.40) L Hemoglobin 9.5 G/DL (12.0-16.0) L Hematocrit 28.7 % (37.0-47.0) L Mean Corpuscular Volume 97 FL (80-99) Mean Corpuscular Hemoglobin 32.1 PG (27.0-31.0) H Mean Corpuscular Hemoglobin Concent 33.1 G/DL (32.0-36.0) Red Cell Distribution Width 14.9 % (11.6-14.8) H Platelet Count 203 K/UL (150-450) Mean Platelet Volume 6.2 FL (6.5-10.1) L Neutrophils (%) (Auto) 83.8 % (45.0-75.0) H Lymphocytes (%) (Auto) 10.8 % (20.0-45.0) L Monocytes (%) (Auto) 5.0 % (1.0-10.0) Eosinophils (%) (Auto) 0.1 % (0.0-3.0) Basophils (%) (Auto) 0.3 % (0.0-2.0) Chemistry Test 11/27/16 06:15 Sodium Level 134 mEQ/L (135-145) L Potassium Level 5.0 mEQ/L (3.4-4.9) H Chloride Level 101 mEQ/L (98-107) Carbon Dioxide Level 21 mEQ/L (20-30) Anion Gap 12 (5-15) Blood Urea Nitrogen 20 mg/dL (7-23) Creatinine 2.3 mg/dL (0.5-0.9) H Estimat Glomerular Filtration Rate mL/min (>60) Glucose Level 122 mg/dL (74-106) H Calcium Level 9.1 mg/dL (8.6-10.2) Risk Assessment & Plan Assessment: ASA 4 Plan: GA, BIS, Spinal Status Change Before Surgery: No Pre-Antibiotics Dru Gram Ancef IV Given Within 1 Hr of Incision: Yes Time Given: 18:46 Jovanny Aguilera MD Nov 27, 2016 17:24
--- NOTE | 2016-11-27 17:25 | Immediate Post-Op Evaluation ---
Immediate Post-Op Evalulation Immediate Post-Op Evalulation Procedure: ORIF L Hip Date of Evaluation: Nov 27, 2016 Time of Evaluation: 19:49 IV Fluids: 100 LR Blood Products: 0 Estimated Blood Loss: 75 Urinary Output: 400 Blood Pressure Systolic: 104 Blood Pressure Diastolic: 38 Pulse Rate: 87 Respiratory Rate: 16 O2 Sat by Pulse Oximetry: 100 Temperature (Fahrenheit): 97 Pain Score (1-10): 1 Nausea: No Vomiting: No Complications 0 Patient Status: awake, reacts, patent, none Hydration Status: adequate Dru Gram Ancef IV Given Within 1 Hr of Incision: Yes Time Given: 18:46 Jovanny Aguilera MD Nov 27, 2016 17:25
[2016-11-27] MEDS ORDERED: Hydromorphone 0.5mg/0.5ml inj IVP PRN (17:30)
[2016-11-27] MEDS ORDERED: Meperidine 25mg/0.5ml Inj (FOR RIGORS ONLY) IV PRN (17:30)
[2016-11-27] MEDS ORDERED: oxyCODONE HCL/Acetaminophen 5/325mg ORAL PRN ×2 (17:30→20:00)
[2016-11-27] MEDS ORDERED: Metoclopramide 10mg/2ml Inj IVP PRN (17:30)
[2016-11-27] MEDS ORDERED: Midazolam 2mg/2ml Inj IVP PRN (17:30)
[2016-11-27] MEDS ORDERED: Ketorolac 30mg Inj IV PRN (17:30)
[2016-11-27] MEDS ORDERED: DiphenhydrAMINE 50mg/ml Inj IVP PRN (17:30)
[2016-11-27] MEDS ORDERED: fentaNYL 100 mcg/2 mL IV PRN (17:30)
[2016-11-27] MEDS ORDERED: Norco 7.5mg/325mg tab ORAL PRN ×2 (17:30→19:30)
[2016-11-27] MEDS ORDERED: Atropine Inj 1mg/10ml Syr IV PRN (17:30)
[2016-11-27] MEDS ORDERED: Ketorolac 60mg Inj IV PRN (17:30)
[2016-11-27] MEDS ORDERED: LORazepam Inj 2mg/ml 1ml IV PRN (17:30)
[2016-11-27] MEDS ORDERED: Norco 5mg/325mg tab ORAL PRN ×2 (17:30→19:30)
[2016-11-27] MEDS ORDERED: Propofol 200mg/20ml IV ONE (17:53)
[2016-11-27] MEDS ORDERED: Bupivacaine w/Epi 0.5% 30ml Vial INJ ONE (18:58)
[2016-11-27] MEDS ORDERED: Bupivacaine w/Epi 0.25% 30ml Vial INJ ONE (19:02)
--- NOTE | 2016-11-27 19:20 | Pre-Procedure Note/Attestation ---
Pre-Procedure Note/Attestation Complete Prior to Procedure Planned Procedure: left Procedure Narrative: hip orif Indications for Procedure Pre-Operative Diagnosis: left hip fracture Attestation I attest that I discussed the nature of the procedure; its benefits; risks and complications; and alternatives (and the risks and benefits of such alternatives ), prior to the procedure, with the patient (or the patient's legal solar manufacturer's representative). I attest that, if there was a reasonable possibility of needing a blood transfusion, the patient (or the patient's legal solar manufacturer's representative) was given the [facility] standardized written summary, pursuant to the Magdaleno [place] Blood Safety Act ([place] Health and Safety Code # 1645, as amended). I attest that I re-evaluated the patient just prior to the surgery and that there has been no change in the patient's H&P, except as documented below: RAMON ORNELAS Nov 27, 2016 19:20
--- NOTE | 2016-11-27 19:20 | Operative Note - PDOC ---
Operative Note Operative Note Pre-op Diagnosis: left hip fracture Procedure: orif left hip Post-op Diagnosis: same as pre-op plus Operative Findings: consistent w/pre-op dx studies Anesthesia: regional Specimen: none Complications: none Condition: stable Estimated Blood Loss: minimal Implant(s) used?: Yes RAMON ORNELAS Nov 27, 2016 19:20
[2016-11-27] MEDS ORDERED: Milk of Magnesia 30ml Ud ORAL PRN (19:30)
[2016-11-27] MEDS ORDERED: NS Irrig 1000ml IRRIG ONE (19:35)
[2016-11-27] MEDS: D5 1/2NS w/KCl 20mEq 1,000 ML IV SCH (21:59)
[2016-11-28] VITALS (7 sets, daily range): BP systolic 94–149; BP diastolic 34–91
[2016-11-28 00:06] LABS: PATH BLOOD SMEAR/OMC SENT TO PATHOLOGIST
[2016-11-28] MEDS: ceFAZolin 2gm/50 ML IV SCH ×2 (01:00→12:06)
[2016-11-28] MEDS ORDERED: ceFAZolin sod 2 GM in D5W 110 ML IV SCH (02:00)
[2016-11-28 02:15] LABS: LYMPHOCYTES % (MANUAL) 14 % (20-45); NEUTROPHILS % (MANUAL) 84 % (45-75); TOTAL CELLS COUNTED 100
[2016-11-28 02:18] LABS: ANISOCYTOSIS 1+; BAND NEUTROPHILS % (MANUAL) 0 % (0-8); BASOPHILS % (MANUAL) 0 % (0-2); EOSINOPHILS % (MANUAL) 0 % (0-3); HYPOCHROMASIA 1+; PLATELET ESTIMATE ADEQUATE; PLATELET MORPHOLOGY NORMAL
[2016-11-28 02:28] LABS: PATH BLOOD SMEAR/OMC SENT TO PATHOLOGIST
--- NOTE | 2016-11-28 05:01 | Progress Note ---
DATE: 11/27/2016 Subjective: The patient had no issues overnight. She is still in moderate discomfort. She still has some degree of confusion. Examination: The patient is resting comfortably in bed. She is little confused. Posterior calf is soft. There is moderate effusion in the left knee. ASSESSMENT: Left intertrochanteric hip fracture. Discussion: At this point, we will contact the transfer center to see if there is a bed available or when the bed availability may come about. I discussed with her that we think we need to consider Surgery. The patient is placed on the schedule for later on tonight if the daughter consents; however, it is likely that she may want to wait another day, in which case we will try to put her on for evening. If the surgery is rescheduled for evening, we will make her NPO after midnight in anticipation of surgery. Mateo Urban M.D. DR: ESHA JOB#: [id number] CC:
--- NOTE | 2016-11-28 05:15 | Progress Note ---
DATE: 11/27/2016 Subjective: The patient has been now diagnosed this Thursday with a left intertrochanteric hip fracture. The daughter has been delaying surgery hoping that her mother would be get transferred to [facility]. As of now, there is no bed available at [facility]. I discussed with her in detail, but at this point, she really needs to consider operative intervention. Mother has not had any issues overnight, but she is little confused. Examination: The patient is resting comfortably at this time in bed. Posterior calf is soft. Neurovascularly normal. No evidence of sacral decubitus. ASSESSMENT: Left intertrochanteric hip fracture. Discussion: At this point, I had a lengthy discussion with the patient. I think that it is detrimental to keep the patient waiting. I think it is reasonable to proceed with surgery later on today if the transfer does not come through. Even the transfer comes through, there has been delay in her care for another day or 2. Therefore, I will make her NPO in anticipation of surgery. We held the subcutaneous heparin this morning. Risks, limitations, expectations, and complications related to surgery were discussed in detail. All questions were addressed. Mateo Urban M.D. DR: JUMANA JOB#: [id number] CC:
--- NOTE | 2016-11-28 07:33 | Consultation ---
DATE OF CONSULTATION: 11/25/2016 CHIEF COMPLAINT: Left hip pain. History Of Present Illness: The patient is an 86-year-old female, who sustained mechanical fall earlier this week. She was brought to [facility]. She was diagnosed to have a left hip fracture. Orthopedic consultation was obtained for further care and recommendation. PAST MEDICAL HISTORY: Reviewed from the intake chart. PAST SURGICAL HISTORY: Reviewed from the intake chart. MEDICATIONS: Reviewed from the intake chart. PHYSICAL EXAMINATION: General: The patient has dementia. She is resting comfortably in bed. Extremities: She has pain with internal and external rotation of left leg. Neurovascular exam is normal. Posterior calf is soft. Diagnostic Data: Imaging studies showed three-part intertrochanteric hip fracture. ASSESSMENT: Left three-part intertrochanteric hip fracture. Discussion: At this point, she needs an operative fixation. Risks, limitations, expectations, and complications related to procedure were discussed in detail. At this point, the patient wants to wait to be transferred to [facility]. I discussed with her that delaying her care is unreasonable, however, she wants to to at least try. Therefore, we will keep her on heparin, maintain on DVT prophylaxis. We will work on transferring to [facility]. Mateo Urban M.D. DR: ESHA JOB#: [id number] CC:
--- NOTE | 2016-11-28 08:57 | General Progress Note ---
Assessment/Plan Assessment/Plan (1) Left hip pain (2) Left hip fracture (3) Arthritis (4) S/p left hip ORIF Pt to be continued on Tylenol and Percocet as needed. D/w Dr. Anglin and he concurred. Subjective Date patient seen: Nov 28, 2016 Time patient seen: 08:15 - am ROS Limited/Unobtainable: Yes Allergies: Coded Allergies: MORPHINE (Verified Allergy, Mild, 03/02/09) HYDROMORPHONE (Verified Allergy, Unknown, 01/13/11) Subjective The patient is in bed and has no signs of pain or distress. Daughter at bedside. Pt is s/p ORIF started on Percocet 5/325mg Q6H PRN. Objective Last 24 Hour Vital Signs Date Time Temp Pulse Resp B/P (MAP) Pulse Ox O2 Delivery O2 Flow Rate FiO2 11/28/16 08:00 98.2 88 20 97/34 98 Nasal Cannula 4.0 11/28/16 04:28 98.5 78 20 105/79 98 Nasal Cannula 11/28/16 00:00 97.2 67 20 103/35 95 Nasal Cannula 2.0 11/27/16 20:54 97.7 71 16 111/31 99 Nasal Cannula 3.0 11/27/16 20:20 97.8 71 16 124/43 100 Nasal Cannula 3.0 11/27/16 20:05 73 16 123/42 100 Nasal Cannula 3.0 11/27/16 19:55 77 15 124/39 99 Simple Mask 6.0 11/27/16 19:48 77 16 112/36 99 Simple Mask 6.0 11/27/16 19:43 89 22 113/41 100 Simple Mask 6.0 11/27/16 19:38 97.0 80 18 104/38 100 Simple Mask 6.0 11/27/16 19:38 87 16 100 11/27/16 16:00 97.3 89 20 149/63 95 Room Air 11/27/16 12:06 97.6 81 20 131/52 95 Room Air Laboratory Tests 11/27/16 13:55: White Blood Count 17.3#H, Red Blood Count 2.96L, Hemoglobin 9.5L, Hematocrit 28.7L, Mean Corpuscular Volume 97, Mean Corpuscular Hemoglobin 32.1H, Mean Corpuscular Hemoglobin Concent 33.1, Red Cell Distribution Width 14.9H, Platelet Count 203, Mean Platelet Volume 6.2L, Neutrophils (%) (Auto) 83.8H, Lymphocytes (%) (Auto) 10.8L, Monocytes (%) (Auto) 5.0, Eosinophils (%) (Auto) 0.1, Basophils (%) (Auto) 0.3, Differential Total Cells Counted 100, Neutrophils % (Manual) 84H, Lymphocytes % (Manual) 14L, Monocytes % (Manual) 2, Eosinophils % (Manual) 0, Basophils % (Manual) 0, Band Neutrophils 0, Platelet Estimate Adequate, Platelet Morphology Normal, Hypochromasia 1+, Anisocytosis 1+ , Ferritin 1115H Height (Feet): 5 Height (Inches): 0.00 Weight (Pounds): 100 Objective GENERAL: Alert, awake Neck: Range of motion is full in all directions. No tenderness to paracervical muscles. No adenopathy. LUNGS: Clear. HEART: S1 and S2 is regular. ABDOMEN: Benign. Extremities: left hip bandages applied. NEURO: No changes. SANTIAGO SANTOS Nov 28, 2016 08:57
[2016-11-28] MEDS: Heparin 5000 units/ml inj SUBQ SCH ×2 (09:00→20:24)
[2016-11-28] MEDS: Amiodarone 200mg tab ORAL SCH (09:00)
[2016-11-28] MEDS: Docusate 100mg cap ORAL SCH ×3 (09:00→18:00)
[2016-11-28] MEDS: Donepezil 5mg Tab ORAL SCH (09:00)
[2016-11-28] MEDS: Aspirin Baby 81mg ORAL SCH (09:00)
--- NOTE | 2016-11-28 09:39 | 48 Hour Post Anesthesia Eval ---
Post Anesthesia Evaluation Procedure: ORIF L Hip Date of Evaluation: Nov 28, 2016 Airway: patent Nausea: No Vomiting: No Pain Intensity: 0 Hydration Status: adequate Cardiopulmonary Status: at baseline Mental Status/LOC: patient returned to baseline Post-Anesthesia Complications: 0 Follow-up care needed: N/A - further care as per primary team ALY BEAVERS M.D. Nov 28, 2016 09:39
--- NOTE | 2016-11-28 10:33 | Diagnostic Imaging Report ---
Indication: PAIN, left hip fracture, intraoperative Technique: Intraoperative images Comparison: 11/24/2016 Findings: Intraoperative images document surgical repair of previously reported left hip intertrochanteric fracture using medullary praveen and compression screw Impression: Intraoperative images, as described
[2016-11-28] MEDS: D5 1/2NS w/KCl 20mEq 1,000 ML IV SCH (10:50)
--- NOTE | 2016-11-28 11:45 | Consultation ---
DATE OF CONSULTATION: 11/27/2016 HEMATOLOGY/ONCOLOGY CONSULTATION CONSULTING PHYSICIAN: Raphael Portillo M.D. REQUESTING PHYSICIAN: Mateo Pearson M.D. Reason For Consultation: Evaluation of breast cancer and elevated CEA. Dear Dr. Mtaeo Pearson, The patient is a pleasant 86-year-old female with recent ground level fall, status post left intertrochanteric hip fracture, status post repair, profound dehydration, CKD stage 5, dementia prior CVA, paroxysmal atrial fibrillation, has been treated in the past for lymphoma and breast cancer, no active disease at this time, presently admitted to [facility] with coagulase-negative staph infection, Port-A-Cath infection still remains. Hematology Service was consulted given the elevated CEA. Past Surgical History: Right shoulder surgery, herniorrhaphy, left breast biopsy, biopsy of lymphoma, AV fistula in the right arm, dialysis catheter, and multiple ports. The patient has a pacemaker. Current Medications: Amiodarone, Femara, lactobacillus, zinc sulfate, vitamin D3, levothyroxine, and B complex. ALLERGIES: To Dilaudid, morphine, and levofloxacin. REVIEW OF SYSTEMS: Difficult to obtain. PHYSICAL EXAMINATION: GENERAL: No acute distress. Vital Signs: Temperature 98 degrees Fahrenheit, pulse of 83, respiratory rate 12, and blood pressure 126/62. PULMONARY: Decreased breath sounds. CARDIOVASCULAR: Regular rate. No S3 or S4. ABDOMEN: Soft, nontender, and nondistended. EXTREMITIES: 1+ edema. NEUROLOGIC: Grossly nonfocal. Laboratory Data: BUN is 24 and creatinine 2.6. Albumin 3.3. WBC 10.3 and hemoglobin 9.1. ASSESSMENT AND PLAN: 1. Elevated CEA. Can be evaluated as an outpatient. The patient has had multiple endoscopies in the past. As of this time, we will not undergo any further procedures given the age and multiple comorbid conditions. 2. Breast cancer, status post treatment. 3. Lymphoma history, status post treatment. No evidence of recurrence at this time. 4. Anemia secondary to chronic disease. Workup has been ordered. 5. Dementia, progressive. 6. Protein-calorie malnutrition. as needed. 7. Coagulase-negative Staph bacteremia, status post treatment. 8. Dehydration, status post IV fluids. I appreciate the consultation. Raphael Portillo M.D. DR: AURE JOB#: [id number] CC:
--- NOTE | 2016-11-28 11:45 | Operative Note - Dictated ---
DATE OF OPERATION: 11/27/2016 Preoperative Diagnosis: Left three-part intertrochanteric hip fracture. Postoperative Diagnosis: Left three-part intertrochanteric hip fracture. Procedure: Open reduction and internal fixation of left intertrochanteric hip fracture with intramedullary device. SURGEON: Mateo Urban M.D. ANESTHESIA: Spinal. Indication For The Procedure: The patient is a pleasant female, who sustained a mechanical fall, diagnosed with a left intertrochanteric hip fracture, elected to undergo operative fixation with intramedullary praveen. The risks, limitations, expectations, and complications of the procedure were discussed in detail including nonunion, malunion, need for future surgery, risk of anesthesia, medical complications, DVT, PE, and mortality risks. All questions were addressed. Description Of Procedure: An informed consent was obtained. The patient was taken to the operating room and placed under spinal anesthesia. The patient was then carefully placed on the fracture table. Reduction of the fracture was performed under fluoroscopic guidance. Once that was done, the left hip was prepped and draped in a sterile manner. Time-out was performed. Ancef was administered. Posterolateral skin incision was then made. A guidewire was put into the proximal aspect of the femur. Once adequate visualization was confirmed on AP and lateral imaging, a proximal reamer was used to open up the proximal reamer and a short gamma nail was then selected and placed. Through a second stab incision, a 9 mm cannulated screw was then placed through a third incision. A 35 mm distal locking screw was placed. Once that was done, the trialing devices were removed. Portal sites were closed using 3-0 Monocryl suture. Steri-Strips and a sterile dressing were applied. The patient was awoken and taken to the recovery room with stable vital signs. ESTIMATED BLOOD LOSS: Minimal. COMPLICATIONS: None. SPECIMENS: None. Implants: A short Violeta gamma nail, 9 mm cannulated screw, and a 35 mm distal locking screw. Mateo Urban M.D. DR: JUMANA JOB#: [id number] CC:
--- NOTE | 2016-11-28 14:12 | Nephrology Progress Note ---
Assessment/Plan Problem List: (1) Hip fracture, intertrochanteric (2) Hypothyroid (3) Leukocytosis (4) Anemia in chronic kidney disease (5) CKD (chronic kidney disease) stage 5, GFR less than 15 ml/min Plan continue hydration, check ua and culture, PT eval, upgrade to puree diet Subjective ROS Limited/Unobtainable: Yes Objective Objective Last 24 Hour Vital Signs Date Time Temp Pulse Resp B/P (MAP) Pulse Ox O2 Delivery O2 Flow Rate FiO2 11/28/16 12:00 97.5 76 20 94/41 99 Nasal Cannula 4.0 11/28/16 08:00 98.2 88 20 97/34 98 Nasal Cannula 4.0 11/28/16 04:28 98.5 78 20 105/79 98 Nasal Cannula 11/28/16 00:00 97.2 67 20 103/35 95 Nasal Cannula 2.0 11/27/16 20:54 97.7 71 16 111/31 99 Nasal Cannula 3.0 11/27/16 20:20 97.8 71 16 124/43 100 Nasal Cannula 3.0 11/27/16 20:05 73 16 123/42 100 Nasal Cannula 3.0 11/27/16 19:55 77 15 124/39 99 Simple Mask 6.0 11/27/16 19:48 77 16 112/36 99 Simple Mask 6.0 11/27/16 19:43 89 22 113/41 100 Simple Mask 6.0 11/27/16 19:38 97.0 80 18 104/38 100 Simple Mask 6.0 11/27/16 19:38 87 16 100 11/27/16 16:00 97.3 89 20 149/63 95 Room Air Height (Feet): 5 Height (Inches): 0.00 Weight (Pounds): 100 General Appearance: no apparent distress, alert, confused EENT: normal ENT inspection Neck: normal alignment, supple Cardiovascular: normal rate, regular rhythm Respiratory/Chest: lungs clear Abdomen: non tender, soft Extremities: other - no edema Neurologic: podiatry assistant II-XII grossly normal, disoriented YARA COREY Nov 28, 2016 14:12
--- NOTE | 2016-11-28 14:31 | Pulmonology Progress Note ---
Assessment/Plan Problems: (1) Hip fracture, intertrochanteric (2) Dementia (3) Hypothyroid Assessment/Plan repeat wbc pain management tolerated surgery very well dvt prophylaxis CEA is elevated, pt followed by Oncology as outpatient Subjective ROS Limited/Unobtainable: No Constitutional: Reports: no symptoms HEENT: Repors: no symptoms Respiratory: Reports: no symptoms Cardiovascular: Reports: no symptoms Allergies: Coded Allergies: MORPHINE (Verified Allergy, Mild, 03/02/09) HYDROMORPHONE (Verified Allergy, Unknown, 01/13/11) Objective Last 24 Hour Vital Signs Date Time Temp Pulse Resp B/P (MAP) Pulse Ox O2 Delivery O2 Flow Rate FiO2 11/28/16 12:00 97.5 76 20 94/41 99 Nasal Cannula 4.0 11/28/16 08:00 98.2 88 20 97/34 98 Nasal Cannula 4.0 11/28/16 04:28 98.5 78 20 105/79 98 Nasal Cannula 11/28/16 00:00 97.2 67 20 103/35 95 Nasal Cannula 2.0 11/27/16 20:54 97.7 71 16 111/31 99 Nasal Cannula 3.0 11/27/16 20:20 97.8 71 16 124/43 100 Nasal Cannula 3.0 11/27/16 20:05 73 16 123/42 100 Nasal Cannula 3.0 11/27/16 19:55 77 15 124/39 99 Simple Mask 6.0 11/27/16 19:48 77 16 112/36 99 Simple Mask 6.0 11/27/16 19:43 89 22 113/41 100 Simple Mask 6.0 11/27/16 19:38 97.0 80 18 104/38 100 Simple Mask 6.0 11/27/16 19:38 87 16 100 11/27/16 16:00 97.3 89 20 149/63 95 Room Air General Appearance: no acute distress HEENT: atraumatic Respiratory/Chest: chest wall non-tender, lungs clear Breasts: no masses Cardiovascular: normal peripheral pulses Abdomen: normal bowel sounds, no organomegaly Extremities: no cyanosis Skin: no rash Current Medications Medications (Trade) Dose Ordered Sig/Dustin Route PRN Reason Start Time Stop Time Status Last Admin Dose Admin Acetaminophen (Tylenol) 650 mg Q4H PRN ORAL Mild Pain/Temp > 100.5 11/28/16 09:30 12/28/16 09:29 Al Hydroxide/Mg Hydroxide (Mylanta II) 30 ml Q6H PRN ORAL dyspepsia 11/24/16 21:15 12/24/16 21:14 Amiodarone HCl (Cordarone) 100 mg DAILY ORAL 11/25/16 09:00 12/25/16 08:59 11/27/16 09:09 Aspirin (ASA) 81 mg DAILY ORAL 11/27/16 09:00 12/27/16 08:59 Dextrose (Dextrose 50%) STAT PRN IV Hypoglycemia 11/24/16 21:15 12/24/16 21:14 Dextrose/Sodium Chloride 1,000 ml @ 75 mls/hr [id number] IV 11/28/16 13:25 12/28/16 13:24 Docusate Sodium (Colace) 100 mg THREE TIMES A DAY ORAL 11/28/16 09:00 12/28/16 08:59 Donepezil HCl (Aricept) 5 mg DAILY ORAL 11/25/16 09:00 12/25/16 08:59 Heparin Sodium (Porcine) (Heparin 5000 units/ml) 5,000 units EVERY 12 HOURS SUBQ 11/24/16 22:30 12/24/16 22:29 11/27/16 22:12 Iron Sucrose 100 mg/Sodium Chloride 60 ml @ 240 mls/hr BEDTIME IVPB 11/28/16 21:00 12/02/16 21:14 UNV Letrozole (Femara) 2.5 mg DAILY ORAL 11/26/16 12:30 12/01/16 12:29 11/27/16 09:09 Levothyroxine Sodium (Synthroid) 100 mcg ACBREAKFAST ORAL 11/27/16 06:30 12/27/16 06:29 11/27/16 06:23 Lidocaine (Lidoderm 5% PATCH) 1 patch DAILY TDERMAL 11/25/16 09:30 12/25/16 09:29 11/27/16 09:19 Lorazepam (Ativan 2mg/ml 1ml) 0.5 mg Q4H PRN IV For Anxiety 11/24/16 21:15 12/01/16 21:14 Magnesium Hydroxide (Mom) 30 ml DAILYPRN PRN ORAL Constipation 11/27/16 19:30 12/27/16 19:29 Ondansetron HCl (Zofran) 4 mg Q6H PRN IVP Nausea & Vomiting 11/27/16 19:30 12/27/16 19:29 Oxycodone/ Acetaminophen (Percocet 5-325) 1 tab Q6H PRN ORAL Pain 4-10 11/27/16 20:00 12/04/16 19:59 Polyethylene Glycol (Miralax) 17 gm HSPRN PRN ORAL Constipation 11/24/16 21:15 12/24/16 21:14 Zolpidem Tartrate (Ambien) 5 mg HSPRN PRN ORAL Insomnia 11/24/16 21:15 12/01/16 21:14 GILLES ALVAREZ Nov 28, 2016 14:31
[2016-11-28] MEDS: D5 1/2NS 1,000 ML IV SCH (14:35)
[2016-11-28 16:37] LABS: APPEARANCE,URINE CLEAR; KETONES,URINE NEGATIVE (NEGATIVE); LEUKOCYTE ESTERASE ,URINE 1+ (NEGATIVE); NITRITE,URINE NEGATIVE (NEGATIVE); PH,URINE 5 (4.5-8.0); PROTEIN,URINE 2+ (NEGATIVE); UROBILINOGEN,URINE NORMAL MG/DL (0.0-1.0)
[2016-11-28 16:48] LABS: BACTERIA,URINE OCCASIONAL /HPF
[2016-11-28] MEDS ORDERED: Tubing IV Secondary IV ONE (17:01)
[2016-11-28] MEDS ORDERED: D5 1/2NS 1000ml IV ONE ×2 (17:01→18:36)
--- NOTE | 2016-11-28 18:22 | Physician Query ---
PLEASE COMPLETE DOCUMENT BEFORE SIGNING Dear Dr. Gilles Pearson Date: November 28, 2016 Script Supervisor/CDS Name: CATHERINE Parry Script Supervisor/CDS Phone No.: Exercise your independent professional judgment when responding to the query. Questions asked do not imply a particular answer is desired or expected. We greatly appreciate your clarification on this issue. CLINICAL DOCUMENTATION STATES: "Protein-calorie malnutrition" DOCUMENTED IN THE ASSESSMENT OF DR. JAVED. "Pt looks cachectic and older than her biological age" DOCUMENTED IN THE H/P OF . CLINICAL FINDINGS SHOW: BMI=19.5 Please respond to the following question: PLEASE SPECIFY THE DEGREE OF PROTEIN- CALORIE MALNUTRITION. { } MILD { } MODERATE { } SEVERE Condition Present on Admission: [] Yes [] No []Clinically Undeterminable Please also document in your Progress Notes and/or Discharge Summary and indicate if the condition was present on admission. GILLES PEARSON MD DATE/TIME [facility]
[2016-11-28] MEDS: Iron Sucrose 100 MG in NS 55 ML IV SCH (20:24)
[2016-11-29] MEDS: D5 1/2NS 1,000 ML IV SCH ×2 (02:09→18:10)
[2016-11-29 05:51] VITALS: BP 142/82
[2016-11-29 06:50] LABS: MEAN CORPUSCULAR HEMOGLOBIN 30.6 PG (27.0-31.0); MEAN CORPUSCULAR HGB CONC 31.8 G/DL (32.0-36.0); MEAN CORPUSCULAR VOLUME 96 FL (80-99); MEAN PLATELET VOLUME 5.8 FL (6.5-10.1); PLATELET COUNT 196 K/UL (150-450); RED BLOOD COUNT 2.46 M/UL (4.20-5.40); RED CELL DISTRIBUTION WIDTH 14.6 % (11.6-14.8); WHITE BLOOD COUNT 9.6 K/UL (4.8-10.8)
[2016-11-29 07:14] LABS: ANION GAP 11 (5-15); CALCIUM 9.6 mg/dL (8.6-10.2); CARBON DIOXIDE 24 mEQ/L (20-30); CHLORIDE 100 mEQ/L (98-107); CREATININE 2.5 mg/dL (0.5-0.9); HEMOLYSIS 3; POTASSIUM 4.7 mEQ/L (3.4-4.9); SODIUM 135 mEQ/L (135-145)
[2016-11-29 07:55] LABS: OTHERS PATHOLOGIST COMMENT
[2016-11-29] MEDS: Heparin 5000 units/ml inj SUBQ SCH ×2 (09:00→20:37)
[2016-11-29] MEDS: Docusate 100mg cap ORAL SCH ×3 (09:00→18:00)
[2016-11-29] MEDS: Donepezil 5mg Tab ORAL SCH (09:00)
[2016-11-29 09:18] LABS: ACANTHOCYTES 1+; ANISOCYTOSIS 1+; BAND NEUTROPHILS % (MANUAL) 2 % (0-8); BASOPHILS % (MANUAL) 0 % (0-2); EOSINOPHILS % (MANUAL) 1 % (0-3); HYPOCHROMASIA 1+; LYMPHOCYTES % (MANUAL) 7 % (20-45); NEUTROPHILS % (MANUAL) 86 % (45-75); OVALOCYTES 1+; PLATELET ESTIMATE ADEQUATE; PLATELET MORPHOLOGY NORMAL; TOTAL CELLS COUNTED 100
[2016-11-29] MEDS: Aspirin Baby 81mg ORAL SCH (10:23)
[2016-11-29] MEDS: Dyna-Hex 2% Top Sol 8oz TOPIC SCH (10:24)
[2016-11-29] MEDS: Amiodarone 200mg tab ORAL SCH (10:32)
--- NOTE | 2016-11-29 10:39 | Nephrology Progress Note ---
Assessment/Plan Problem List: (1) Hip fracture, intertrochanteric (2) Hypothyroid (3) Leukocytosis (4) Anemia in chronic kidney disease (5) CKD (chronic kidney disease) stage 5, GFR less than 15 ml/min Plan continue hydration, check ua and culture, PT eval, upgrade to puree diet, epogen and iron, transfuse Subjective ROS Limited/Unobtainable: Yes Objective Objective Last 24 Hour Vital Signs Date Time Temp Pulse Resp B/P (MAP) Pulse Ox O2 Delivery O2 Flow Rate FiO2 11/29/16 05:51 142/82 11/29/16 04:00 98.1 87 21 90 Room Air 11/28/16 23:50 98.3 80 20 134/79 95 Room Air 11/28/16 20:07 98.4 86 20 117/50 95 Room Air 11/28/16 15:54 97.8 90 20 149/91 99 Nasal Cannula 4.0 11/28/16 12:00 97.5 76 20 94/41 99 Nasal Cannula 4.0 Laboratory Tests 11/28/16 16:15: Urine Color Pale yellow, Urine Appearance Clear, Urine pH 5, Urine Specific [place] 1.010, Urine Protein 2+H, Urine Glucose (UA) Negative, Urine Ketones Negative, Urine Occult Blood 3+H, Urine Nitrite Negative, Urine Bilirubin Negative, Urine Urobilinogen Normal, Urine Leukocyte Esterase 1+H, Urine RBC 2- 4H, Urine WBC 2-4, Urine Squamous Epithelial Cells None, Urine Bacteria Occasional 11/29/16 05:50: White Blood Count 9.6, Red Blood Count 2.46L, Hemoglobin 7.5L, Hematocrit 23.6L , Mean Corpuscular Volume 96, Mean Corpuscular Hemoglobin 30.6, Mean Corpuscular Hemoglobin Concent 31.8L, Red Cell Distribution Width 14.6, Platelet Count 196, Mean Platelet Volume 5.8L, Neutrophils (%) (Auto) , Lymphocytes (%) (Auto) , Monocytes (%) (Auto) , Eosinophils (%) (Auto) , Basophils (%) (Auto) , Differential Total Cells Counted 100, Neutrophils % ( Manual) 86H, Lymphocytes % (Manual) 7L, Monocytes % (Manual) 4, Eosinophils % ( Manual) 1, Basophils % (Manual) 0, Band Neutrophils 2, Platelet Estimate Adequate, Platelet Morphology Normal, Hypochromasia 1+, Anisocytosis 1+, Ovalocytes 1+, Acanthocytes 1+, Sodium Level 135, Potassium Level 4.7, Chloride Level 100, Carbon Dioxide Level 24, Anion Gap 11, Blood Urea Nitrogen 23, Creatinine 2.5H, Estimat Glomerular Filtration Rate , Glucose Level 119H, Calcium Level 9.6 Height (Feet): 5 Height (Inches): 0.00 Weight (Pounds): 100 General Appearance: no apparent distress EENT: normal ENT inspection Neck: normal alignment Cardiovascular: normal rate, regular rhythm Respiratory/Chest: lungs clear Abdomen: non tender, soft Extremities: other - no edema Neurologic: translator interpreter II-XII grossly normal, disoriented YARA COREY Nov 29, 2016 10:39
--- NOTE | 2016-11-29 13:38 | General Progress Note ---
Assessment/Plan Assessment/Plan ASSESSMENT AND PLAN: 1. Elevated CEA. Can be evaluated as an outpatient. The patient has had multiple endoscopies in the past. As of this time, we will not undergo any further procedures given the age and multiple comorbid conditions. 2. Breast cancer, status post treatment. 3. Lymphoma history, status post treatment. No evidence of recurrence at this time. 4. Anemia secondary to chronic disease. Workup has been reviewed. --> no evidence of iron deficiency --> transfuse if hgb is below 7 5. Left hip fracture, comminuted 6. Dementia, progressive. 7. Protein-calorie malnutrition. 8. Coagulase-negative Staph bacteremia, status post treatment. 9. Dehydration, status post IV fluids. Subjective Date patient seen: Nov 28, 2016 Constitutional: Reports: no symptoms HEENT: Reports: no symptoms Cardiovascular: Reports: no symptoms Respiratory: Reports: no symptoms Gastrointestinal/Abdominal: Reports: no symptoms Genitourinary: Reports: no symptoms Neurologic/Psychiatric: Reports: no symptoms Endocrine: Reports: no symptoms Hematologic/Lymphatic: Reports: anemia Allergies: Coded Allergies: MORPHINE (Verified Allergy, Mild, 03/02/09) HYDROMORPHONE (Verified Allergy, Unknown, 01/13/11) Subjective hip pain due to fx Objective Last 24 Hour Vital Signs Date Time Temp Pulse Resp B/P (MAP) Pulse Ox O2 Delivery O2 Flow Rate FiO2 11/29/16 05:51 142/82 11/29/16 04:00 98.1 87 21 90 Room Air 11/28/16 23:50 98.3 80 20 134/79 95 Room Air 11/28/16 20:07 98.4 86 20 117/50 95 Room Air 11/28/16 15:54 97.8 90 20 149/91 99 Nasal Cannula 4.0 Laboratory Tests 11/28/16 16:15: Urine Color Pale yellow, Urine Appearance Clear, Urine pH 5, Urine Specific [place] 1.010, Urine Protein 2+H, Urine Glucose (UA) Negative, Urine Ketones Negative, Urine Occult Blood 3+H, Urine Nitrite Negative, Urine Bilirubin Negative, Urine Urobilinogen Normal, Urine Leukocyte Esterase 1+H, Urine RBC 2- 4H, Urine WBC 2-4, Urine Squamous Epithelial Cells None, Urine Bacteria Occasional 11/29/16 05:50: White Blood Count 9.6, Red Blood Count 2.46L, Hemoglobin 7.5L, Hematocrit 23.6L , Mean Corpuscular Volume 96, Mean Corpuscular Hemoglobin 30.6, Mean Corpuscular Hemoglobin Concent 31.8L, Red Cell Distribution Width 14.6, Platelet Count 196, Mean Platelet Volume 5.8L, Neutrophils (%) (Auto) , Lymphocytes (%) (Auto) , Monocytes (%) (Auto) , Eosinophils (%) (Auto) , Basophils (%) (Auto) , Differential Total Cells Counted 100, Neutrophils % ( Manual) 86H, Lymphocytes % (Manual) 7L, Monocytes % (Manual) 4, Eosinophils % ( Manual) 1, Basophils % (Manual) 0, Band Neutrophils 2, Platelet Estimate Adequate, Platelet Morphology Normal, Hypochromasia 1+, Anisocytosis 1+, Ovalocytes 1+, Acanthocytes 1+, Sodium Level 135, Potassium Level 4.7, Chloride Level 100, Carbon Dioxide Level 24, Anion Gap 11, Blood Urea Nitrogen 23, Creatinine 2.5H, Estimat Glomerular Filtration Rate , Glucose Level 119H, Calcium Level 9.6 Height (Feet): 5 Height (Inches): 0.00 Weight (Pounds): 100 General Appearance: no apparent distress EENT: PERRL/EOMI Neck: normal alignment Cardiovascular: normal peripheral pulses Respiratory/Chest: normal breath sounds Abdomen: soft, no mass Neurologic: ticketer II-XII grossly normal, disoriented Skin: warm/dry Raphael Portillo Nov 29, 2016 13:38
[2016-11-29] MEDS ORDERED: Tubing IV Blood Pump IV ONE (16:29)
[2016-11-29] MEDS ORDERED: NS 275ml ONE (16:29)
[2016-11-29] MEDS ORDERED: D5 1/2NS 1000ml IV ONE (16:29)
[2016-11-29] MEDS ORDERED: Tubing IV Secondary IV ONE (16:29)
--- NOTE | 2016-11-29 18:54 | Pulmonology Progress Note ---
Assessment/Plan Problems: (1) Hip fracture, intertrochanteric (2) Dementia (3) Hypothyroid Assessment/Plan repeat wbc pain management tolerated surgery very well dvt prophylaxis CEA is elevated, pt followed by Oncology as outpatient dc home in am after pt evaluation Subjective ROS Limited/Unobtainable: No Constitutional: Reports: no symptoms HEENT: Repors: no symptoms Allergies: Coded Allergies: MORPHINE (Verified Allergy, Mild, 03/02/09) HYDROMORPHONE (Verified Allergy, Unknown, 01/13/11) Objective Last 24 Hour Vital Signs Date Time Temp Pulse Resp B/P (MAP) Pulse Ox O2 Delivery O2 Flow Rate FiO2 11/29/16 05:51 142/82 11/29/16 04:00 98.1 87 21 90 Room Air 11/28/16 23:50 98.3 80 20 134/79 95 Room Air 11/28/16 20:07 98.4 86 20 117/50 95 Room Air Intake and Output 11/29/16 11/30/16 19:00 07:00 Intake Total 240 ml Balance 240 ml Intake Oral 240 ml # Voids 4 General Appearance: WD/WN HEENT: normocephalic, atraumatic Respiratory/Chest: chest wall non-tender, lungs clear Breasts: no masses Cardiovascular: normal peripheral pulses, normal rate Abdomen: normal bowel sounds, soft, non tender Genitourinary: normal external genitalia Extremities: no cyanosis Skin: no lesions Neurologic/Psychiatric: iap displays analyst II-XII grossly normal, no motor/sensory deficits Lymphatic: no groin adenopathy Microbiology Date/Time Source Procedure Growth Status 11/28/16 16:15 Indwelling Cath Urine Culture - Preliminary NO GROWTH Resulted Laboratory Tests 11/29/16 05:50: White Blood Count 9.6, Red Blood Count 2.46L, Hemoglobin 7.5L, Hematocrit 23.6L , Mean Corpuscular Volume 96, Mean Corpuscular Hemoglobin 30.6, Mean Corpuscular Hemoglobin Concent 31.8L, Red Cell Distribution Width 14.6, Platelet Count 196, Mean Platelet Volume 5.8L, Neutrophils (%) (Auto) , Lymphocytes (%) (Auto) , Monocytes (%) (Auto) , Eosinophils (%) (Auto) , Basophils (%) (Auto) , Differential Total Cells Counted 100, Neutrophils % ( Manual) 86H, Lymphocytes % (Manual) 7L, Monocytes % (Manual) 4, Eosinophils % ( Manual) 1, Basophils % (Manual) 0, Band Neutrophils 2, Platelet Estimate Adequate, Platelet Morphology Normal, Hypochromasia 1+, Anisocytosis 1+, Ovalocytes 1+, Acanthocytes 1+, Sodium Level 135, Potassium Level 4.7, Chloride Level 100, Carbon Dioxide Level 24, Anion Gap 11, Blood Urea Nitrogen 23, Creatinine 2.5H, Estimat Glomerular Filtration Rate , Glucose Level 119H, Calcium Level 9.6 Current Medications Medications (Trade) Dose Ordered Sig/Dutsin Route PRN Reason Start Time Stop Time Status Last Admin Dose Admin Acetaminophen (Tylenol) 650 mg Q4H PRN ORAL Mild Pain/Temp > 100.5 11/28/16 09:30 12/28/16 09:29 11/29/16 18:07 Al Hydroxide/Mg Hydroxide (Mylanta II) 30 ml Q6H PRN ORAL dyspepsia 11/24/16 21:15 12/24/16 21:14 Amiodarone HCl (Cordarone) 100 mg DAILY ORAL 11/25/16 09:00 12/25/16 08:59 11/29/16 10:32 Aspirin (ASA) 81 mg DAILY ORAL 11/27/16 09:00 12/27/16 08:59 11/29/16 10:23 Chlorhexidine Gluconate (Coco-Hex 2%) 1 applic DAILY TOPIC 11/29/16 09:00 12/29/16 08:59 11/29/16 10:24 Dextrose (Dextrose 50%) STAT PRN IV Hypoglycemia 11/24/16 21:15 12/24/16 21:14 Dextrose/Sodium Chloride 1,000 ml @ 75 mls/hr [id number] IV 11/28/16 13:25 12/28/16 13:24 11/29/16 18:10 Docusate Sodium (Colace) 100 mg THREE TIMES A DAY ORAL 11/28/16 09:00 12/28/16 08:59 Donepezil HCl (Aricept) 5 mg DAILY ORAL 11/25/16 09:00 12/25/16 08:59 Epoetin Dane (Procrit (for ESRD on dialysis)) 7,000 units MoWeFr@2100 SUBQ 11/29/16 21:00 12/29/16 20:59 Heparin Sodium (Porcine) (Heparin 5000 units/ml) 5,000 units EVERY 12 HOURS SUBQ 11/24/16 22:30 12/24/16 22:29 11/27/16 22:12 Iron Sucrose 100 mg/Sodium Chloride 60 ml @ 240 mls/hr BEDTIME IV 11/28/16 21:00 12/02/16 21:14 11/28/16 20:24 Letrozole (Femara) 2.5 mg DAILY ORAL 11/26/16 12:30 12/01/16 12:29 11/29/16 10:24 Levothyroxine Sodium (Synthroid) 100 mcg ACBREAKFAST ORAL 11/27/16 06:30 12/27/16 06:29 11/27/16 06:23 Lidocaine (Lidoderm 5% PATCH) 1 patch DAILY TDERMAL 11/25/16 09:30 12/25/16 09:29 11/27/16 09:19 Lorazepam (Ativan 2mg/ml 1ml) 0.5 mg Q4H PRN IV For Anxiety 11/24/16 21:15 12/01/16 21:14 Magnesium Hydroxide (Mom) 30 ml DAILYPRN PRN ORAL Constipation 11/27/16 19:30 12/27/16 19:29 Ondansetron HCl (Zofran) 4 mg Q6H PRN IVP Nausea & Vomiting 11/27/16 19:30 12/27/16 19:29 Oxycodone/ Acetaminophen (Percocet 5-325) 1 tab Q6H PRN ORAL Pain 4-10 11/27/16 20:00 12/04/16 19:59 11/28/16 16:55 Polyethylene Glycol (Miralax) 17 gm HSPRN PRN ORAL Constipation 11/24/16 21:15 12/24/16 21:14 Zolpidem Tartrate (Ambien) 5 mg HSPRN PRN ORAL Insomnia 11/24/16 21:15 12/01/16 21:14 GILLES ALVAREZ Nov 29, 2016 18:54
--- NOTE | 2016-11-29 19:47 | Consultation ---
Consult Note Consult Note ID CONSULT: Kira# [id number] Assessment/Plan ASSESSMENT: 86 y/o female with: // Post-op leukocytosis - resolved, afebrile, m/l reactive r/o PNA or recurrent bacteremia - UA(-), UCx NGTD - no evidence of early surgical wound infection // Recent h/o CONS port infection SP Rx r/o recurrence // Acute left hip fracture SP ORIF 11/27 // Acute on chronic post-op blood loss anemia // CKD5, h/o HD // Advanced dementia // Elevated CEA // h/o breast CA, on femara // No ABX allergies // Full Code PLAN: - monitor pt off of ABX - check surveillance blood cultures - CXR AM - f/u UCx - monitor CBC, temperatures - monitor BMP - PT/OT Thanks! Will follow KAREN LACY Nov 29, 2016 19:47
[2016-11-29 20:00] VITALS: BP 132/94
[2016-11-29] MEDS: Iron Sucrose 100 MG in NS 55 ML IV SCH (20:36)
[2016-11-29] MEDS ORDERED: Epogen (for ESRD on dialysis) SUBQ SCH (21:00)
--- NOTE | 2016-11-29 21:43 | General Progress Note ---
Assessment/Plan Assessment/Plan ASSESSMENT AND PLAN: 1. Elevated CEA. Can be evaluated as an outpatient. The patient has had multiple endoscopies in the past. As of this time, we will not undergo any further procedures given the age and multiple comorbid conditions. 2. Breast cancer, status post treatment. 3. Lymphoma history, status post treatment. No evidence of recurrence at this time. 4. Anemia secondary to chronic disease. Workup has been reviewed. --> no evidence of iron deficiency --> s/p blood transfusion, check cbc before discharge tomorrow 5. Left hip fracture, comminuted 6. Dementia, progressive. 7. Protein-calorie malnutrition. 8. Coagulase-negative Staph bacteremia, status post treatment. 9. Dehydration, status post IV fluids. Subjective Constitutional: Reports: no symptoms HEENT: Reports: no symptoms Cardiovascular: Reports: no symptoms Respiratory: Reports: no symptoms Gastrointestinal/Abdominal: Reports: no symptoms Genitourinary: Reports: no symptoms Neurologic/Psychiatric: Reports: no symptoms Endocrine: Reports: no symptoms Hematologic/Lymphatic: Reports: anemia Allergies: Coded Allergies: MORPHINE (Verified Allergy, Mild, 03/02/09) HYDROMORPHONE (Verified Allergy, Unknown, 01/13/11) Subjective received blood transfusion Objective Last 24 Hour Vital Signs Date Time Temp Pulse Resp B/P (MAP) Pulse Ox O2 Delivery O2 Flow Rate FiO2 11/29/16 19:06 99.3 11/29/16 05:51 142/82 11/29/16 04:00 98.1 87 21 90 Room Air 11/28/16 23:50 98.3 80 20 134/79 95 Room Air Intake and Output 11/29/16 11/30/16 19:00 07:00 Intake Total 240 ml Balance 240 ml Intake Oral 240 ml # Voids 4 Laboratory Tests 11/29/16 05:50: White Blood Count 9.6, Red Blood Count 2.46L, Hemoglobin 7.5L, Hematocrit 23.6L , Mean Corpuscular Volume 96, Mean Corpuscular Hemoglobin 30.6, Mean Corpuscular Hemoglobin Concent 31.8L, Red Cell Distribution Width 14.6, Platelet Count 196, Mean Platelet Volume 5.8L, Neutrophils (%) (Auto) , Lymphocytes (%) (Auto) , Monocytes (%) (Auto) , Eosinophils (%) (Auto) , Basophils (%) (Auto) , Differential Total Cells Counted 100, Neutrophils % ( Manual) 86H, Lymphocytes % (Manual) 7L, Monocytes % (Manual) 4, Eosinophils % ( Manual) 1, Basophils % (Manual) 0, Band Neutrophils 2, Platelet Estimate Adequate, Platelet Morphology Normal, Hypochromasia 1+, Anisocytosis 1+, Ovalocytes 1+, Acanthocytes 1+, Sodium Level 135, Potassium Level 4.7, Chloride Level 100, Carbon Dioxide Level 24, Anion Gap 11, Blood Urea Nitrogen 23, Creatinine 2.5H, Estimat Glomerular Filtration Rate , Glucose Level 119H, Calcium Level 9.6 Height (Feet): 5 Height (Inches): 0.00 Weight (Pounds): 100 General Appearance: no apparent distress EENT: normal ENT inspection Neck: normal alignment Cardiovascular: normal peripheral pulses Abdomen: soft, no organomegaly Neurologic: normal mood/affect Skin: normal pigmentation, warm/dry Raphael Portillo Nov 29, 2016 21:43
[2016-11-30] VITALS: BP 121/96
--- NOTE | 2016-11-30 01:45 | Consultation ---
DATE OF CONSULTATION: 11/29/2016 INFECTIOUS DISEASE CONSULTATION CONSULTING PHYSICIAN: Kong Mathew M.D. REQUESTING PHYSICIAN: Mateo Pearson M.D. REASON FOR CONSULTATION: Leukocytosis. History Of Present Illness: This is an 86-year-old demented female with multiple medical problems, admitted on 11/29/2016 with left hip pain status post fall. X-ray confirmed fracture. She underwent left hip open reduction and internal fixation on 11/27/2016. She developed leukocytosis on postoperative day #0. Leukocytosis has resolved on this morning's laboratories. She has been afebrile throughout. Urinalysis is benign and urine culture is no growth to date. She is currently not receiving any antibiotics and ID is now consulted to assist in management. PAST MEDICAL HISTORY: 1. Advanced dementia. 2. COPD. 3. Chronic kidney disease, stage 5 with previous hemodialysis, but not currently. 4. Atrial fibrillation. 5. Osteoarthritis. 6. Hypothyroidism. 7. History of breast cancer, on Femara. 8. Anemia of chronic disease. 9. Hypertension. 10. History of stroke. PAST SURGICAL HISTORY: 1. Left hip open reduction and internal fixation on 11/27/2016. 2. Hemodialysis access. 3. Port placement. 4. Cholecystectomy. 5. Cataract surgery. 6. Left breast biopsy. 7. Pacemaker placement. ALLERGIES: 1. Morphine. 2. Hydromorphone. MEDICATIONS: 1. No antibiotics. 2. Procrit. 3. Iron sucrose. 4. Colace. 5. Baby aspirin. 6. Synthroid. 7. Femara. 8. Amiodarone. 9. Aricept. 10. Subcutaneous heparin. FAMILY HISTORY: Reviewed and noncontributory. Social History: The patient lives locally with family. No active tobacco, alcohol, or illicit drug abuse. Review Of Systems: As per history of present illness. Ten systems reviewed. All pertinent positives and negatives noted. PHYSICAL EXAMINATION: Vital Signs: Maximum temperature 98.5, blood pressure 142/82, heart rate in the 80s, respiratory rate 20, and saturating 94% on room air. GENERAL: No apparent distress. Nontoxic appearing. CARDIOVASCULAR: Regular rate and rhythm. No murmurs. PULMONARY: Clear to auscultation bilaterally. ABDOMINAL: Bowel sounds present. Soft, nondistended, and nontender. EXTREMITIES: Left hip bandaged. No erythema. SKIN: No rash. Laboratory Data: White blood cell count 9.6 decreased from 17.3, hemoglobin 7.5, and platelets 196,000. Sodium 135, potassium 4.7, chloride 100, bicarbonate 24, BUN 23, and creatinine 2.5. Liver function tests within normal limits. ESR 50. CEA 6.1. Urinalysis negative. MICROBIOLOGY: From 11/28/2016, urine culture, no growth to date. IMAGING: Reviewed. ASSESSMENT: 1. Postoperative leukocytosis, now resolved and afebrile. Most likely reactive. Rule out pneumonia or recurrent bacteremia. Urinalysis is benign and urine culture is no growth to date. She has no evidence of early surgical wound infection. 2. Recent history of coagulase-negative Staphylococcus port infection, status post treatment, rule out recurrence. 3. Acute left hip fracture, status post open reduction and internal fixation on 11/27/2016. 4. Acute on chronic postoperative blood-loss anemia. 5. Chronic kidney disease, stage 5 with history of hemodialysis. 6. Advanced dementia. 7. Elevated carcinoembryonic antigen. 8. History of breast cancer, on Femara. 9. No antibiotic allergies. 10. Full code. PLAN: 1. Monitor the patient off of antibiotics. 2. Check surveillance blood cultures. 3. Check chest x-ray in the morning. 4. Follow up final urine culture. 5. Monitor CBC and temperatures. 6. Monitor BMP. 7. Physical and occupational therapy. Thank you. We will follow. Kong Mathew M.D. DR: MERT JOB#: [id number] CC: Mateo Pearson M.D.; Fax#: [phone] Smith, M.D. Ottoniel Culver M.D; Fax#: [phone]
[2016-11-30 04:00] VITALS: BP 138/58
[2016-11-30] MEDS: D5 1/2NS 1,000 ML IV SCH (05:31)
--- NOTE | 2016-11-30 07:00 | Infectious Diseases Prog Note ---
Assessment/Plan Assessment/Plan ASSESSMENT: 86 y/o female with: // Post-op leukocytosis - resolved, afebrile, m/l reactive r/o PNA or recurrent bacteremia. CXR, BCx pending - UA(-), UCx NGTD - no evidence of early surgical wound infection // Recent h/o CONS port infection SP Rx r/o recurrence - surveillance BCx pending // Acute left hip fracture SP ORIF 11/27 // Acute on chronic post-op blood loss anemia // CKD5, h/o HD // Advanced dementia // Elevated CEA // h/o breast CA, on femara // No ABX allergies // Full Code PLAN: - monitor pt off of ABX for now - f/u surveillance blood cultures - f/u CXR - f/u UCx - monitor CBC, temperatures - monitor BMP - PT/OT Subjective Allergies: Coded Allergies: MORPHINE (Verified Allergy, Mild, 03/02/09) HYDROMORPHONE (Verified Allergy, Unknown, 01/13/11) Subjective remains afebrile CXR, BCx pending Objective Vital Signs Last 24 Hour Vital Signs Date Time Temp Pulse Resp B/P (MAP) Pulse Ox O2 Delivery O2 Flow Rate FiO2 11/30/16 04:00 98.1 82 20 138/58 94 Room Air 11/30/16 00:00 97.9 84 20 121/96 94 Room Air 11/29/16 20:00 98.9 89 20 132/94 94 Room Air 11/29/16 19:06 99.3 Height (Feet): 5 Height (Inches): 0.00 Weight (Pounds): 100 General Appearance: no acute distress Respiratory/Chest: no respiratory distress Cardiovascular: normal rate, regular rhythm Abdomen: normal bowel sounds, soft, non tender, non distended Microbiology Date/Time Source Procedure Growth Status 11/28/16 16:15 Indwelling Cath Urine Culture - Preliminary NO GROWTH Resulted Current Medications Medications (Trade) Dose Ordered Sig/Dustin Route PRN Reason Start Time Stop Time Status Last Admin Dose Admin Acetaminophen (Tylenol) 650 mg Q4H PRN ORAL Mild Pain/Temp > 100.5 11/28/16 09:30 12/28/16 09:29 11/29/16 18:07 Al Hydroxide/Mg Hydroxide (Mylanta II) 30 ml Q6H PRN ORAL dyspepsia 11/24/16 21:15 12/24/16 21:14 Amiodarone HCl (Cordarone) 100 mg DAILY ORAL 11/25/16 09:00 12/25/16 08:59 11/29/16 10:32 Aspirin (ASA) 81 mg DAILY ORAL 11/27/16 09:00 12/27/16 08:59 11/29/16 10:23 Chlorhexidine Gluconate (Occo-Hex 2%) 1 applic DAILY TOPIC 11/29/16 09:00 12/29/16 08:59 11/29/16 10:24 Dextrose (Dextrose 50%) STAT PRN IV Hypoglycemia 11/24/16 21:15 12/24/16 21:14 Dextrose/Sodium Chloride 1,000 ml @ 75 mls/hr [id number] IV 11/28/16 13:25 12/28/16 13:24 11/30/16 05:31 Docusate Sodium (Colace) 100 mg THREE TIMES A DAY ORAL 11/28/16 09:00 12/28/16 08:59 Donepezil HCl (Aricept) 5 mg DAILY ORAL 11/25/16 09:00 12/25/16 08:59 Epoetin Dane (Procrit (for ESRD on dialysis)) 7,000 units MoWeFr@2100 SUBQ 11/29/16 21:00 12/29/16 20:59 11/29/16 20:35 Heparin Sodium (Porcine) (Heparin 5000 units/ml) 5,000 units EVERY 12 HOURS SUBQ 11/24/16 22:30 12/24/16 22:29 11/29/16 20:37 Iron Sucrose 100 mg/Sodium Chloride 60 ml @ 240 mls/hr BEDTIME IV 11/28/16 21:00 12/02/16 21:14 11/29/16 20:36 Letrozole (Femara) 2.5 mg DAILY ORAL 11/26/16 12:30 12/01/16 12:29 11/29/16 10:24 Levothyroxine Sodium (Synthroid) 100 mcg ACBREAKFAST ORAL 11/27/16 06:30 12/27/16 06:29 11/30/16 05:59 Lidocaine (Lidoderm 5% PATCH) 1 patch DAILY TDERMAL 11/25/16 09:30 12/25/16 09:29 11/27/16 09:19 Lorazepam (Ativan 2mg/ml 1ml) 0.5 mg Q4H PRN IV For Anxiety 11/24/16 21:15 12/01/16 21:14 Magnesium Hydroxide (Mom) 30 ml DAILYPRN PRN ORAL Constipation 11/27/16 19:30 12/27/16 19:29 Ondansetron HCl (Zofran) 4 mg Q6H PRN IVP Nausea & Vomiting 11/27/16 19:30 12/27/16 19:29 Oxycodone/ Acetaminophen (Percocet 5-325) 1 tab Q6H PRN ORAL Pain 4-10 11/27/16 20:00 12/04/16 19:59 11/28/16 16:55 Polyethylene Glycol (Miralax) 17 gm HSPRN PRN ORAL Constipation 11/24/16 21:15 12/24/16 21:14 Zolpidem Tartrate (Ambien) 5 mg HSPRN PRN ORAL Insomnia 11/24/16 21:15 12/01/16 21:14 KAREN LACY Nov 30, 2016 07:00
[2016-11-30 07:45] LABS: EOSINOPHILS % (AUTO) 0.9 % (0.0-3.0); LYMPHOCYTES % (AUTO) 13.6 % (20.0-45.0); MEAN CORPUSCULAR HEMOGLOBIN 30.7 PG (27.0-31.0); MEAN CORPUSCULAR HGB CONC 32.7 G/DL (32.0-36.0); MEAN CORPUSCULAR VOLUME 94 FL (80-99); MEAN PLATELET VOLUME 5.7 FL (6.5-10.1); MONOCYTES % (AUTO) 9.8 % (1.0-10.0); NEUTROPHILS % (AUTO) 74.6 % (45.0-75.0); PLATELET COUNT 212 K/UL (150-450); RED BLOOD COUNT 3.23 M/UL (4.20-5.40); WHITE BLOOD COUNT 7.8 K/UL (4.8-10.8)
[2016-11-30 08:21] LABS: ALANINE AMINOTRANSFERASE 5 U/L (3-33); ALBUMIN/GLOBULIN RATIO 1.2 (1.0-2.7); ANION GAP 13 (5-15); ASPARTATE AMINO TRANSFERASE 19 U/L (5-40); CALCIUM 10.1 mg/dL (8.6-10.2); CARBON DIOXIDE 21 mEQ/L (20-30); CHLORIDE 103 mEQ/L (98-107); CREATININE 2.2 mg/dL (0.5-0.9); HEMOLYSIS 2; MAGNESIUM 1.5 mg/dL (1.7-2.5); PHOSPHORUS 2.7 mg/dL (2.5-4.8); POTASSIUM 4.8 mEQ/L (3.4-4.9); SODIUM 137 mEQ/L (135-145); TOTAL PROTEIN 5.3 g/dL (6.6-8.7)
[2016-11-30] MEDS: Donepezil 5mg Tab ORAL SCH (08:41)
[2016-11-30] MEDS: Docusate 100mg cap ORAL SCH ×2 (08:47→13:00)
[2016-11-30 08:52] LABS: CRP QUANT 20.1 mg/dL (< 0.5)
[2016-11-30] MEDS: Aspirin Baby 81mg ORAL SCH (09:22)
[2016-11-30] MEDS: Heparin 5000 units/ml inj SUBQ SCH (09:23)
[2016-11-30] MEDS: Dyna-Hex 2% Top Sol 8oz TOPIC SCH (09:25)
[2016-11-30] MEDS: Amiodarone 200mg tab ORAL SCH (09:26)
[2016-11-30] MEDS ORDERED: D5 1/2NS 1000ml IV ONE (10:08)
[2016-11-30 10:42] LABS: ERYTHROCYTE SEDIMENTATION RATE 70 MM/HR (0-42)
--- NOTE | 2016-11-30 11:16 | Diagnostic Imaging Report ---
Indication: Dyspnea Comparison: None 1117 A single view chest radiograph was obtained. Findings: Bones are moderately osteopenic. There is a left arm port with the tip terminating in the right atrium. Lungs are clear. No obvious infiltrate identified. Suture anchors project over the right humeral head. Heart size is normal. Aorta is mildly ectatic. Impression: No acute cardiopulmonary abnormalities identified
[2016-11-30 12:00] VITALS: BP 144/71
--- NOTE | 2016-11-30 12:45 | General Progress Note ---
Assessment/Plan Assessment/Plan (1) Left hip pain (2) Left hip fracture (3) Arthritis (4) S/p left hip ORIF Pt to be continued on Tylenol and Percocet as needed. D/w Dr. Anglin and he concurred. Subjective Date patient seen: Nov 30, 2016 Time patient seen: 12:00 - pm ROS Limited/Unobtainable: Yes Allergies: Coded Allergies: MORPHINE (Verified Allergy, Mild, 03/02/09) HYDROMORPHONE (Verified Allergy, Unknown, 01/13/11) Subjective At this time patient is in bed no signs of pain or distress and is comfortable at this time. Objective Last 24 Hour Vital Signs Date Time Temp Pulse Resp B/P (MAP) Pulse Ox O2 Delivery O2 Flow Rate FiO2 11/30/16 04:00 98.1 82 20 138/58 94 Room Air 11/30/16 00:00 97.9 84 20 121/96 94 Room Air 11/29/16 20:00 98.9 89 20 132/94 94 Room Air 11/29/16 19:06 99.3 Intake and Output 11/30/16 12/01/16 19:00 07:00 # Bowel Movements 1 Laboratory Tests 11/30/16 06:45: White Blood Count 7.8, Red Blood Count 3.23L, Hemoglobin 9.9#L, Hematocrit 30.4L , Mean Corpuscular Volume 94, Mean Corpuscular Hemoglobin 30.7, Mean Corpuscular Hemoglobin Concent 32.7, Red Cell Distribution Width 15.0H, Platelet Count 212, Mean Platelet Volume 5.7L, Neutrophils (%) (Auto) 74.6, Lymphocytes (%) (Auto) 13.6L, Monocytes (%) (Auto) 9.8, Eosinophils (%) (Auto) 0.9, Basophils (%) (Auto) 1.0, Erythrocyte Sedimentation Rate 70H, Sodium Level 137, Potassium Level 4.8, Chloride Level 103, Carbon Dioxide Level 21, Anion Gap 13, Blood Urea Nitrogen 23, Creatinine 2.2H, Estimat Glomerular Filtration Rate , Glucose Level 108H, Calcium Level 10.1, Phosphorus Level 2.7, Magnesium Level 1.5L, Total Bilirubin 0.5, Aspartate Amino Transf (AST/SGOT) 19, Alanine Aminotransferase (ALT/SGPT) 5, Alkaline Phosphatase 67, C-Reactive Protein, Quantitative 20.1H, Total Protein 5.3L, Albumin 2.9L, Globulin 2.4, Albumin/ Globulin Ratio 1.2 Height (Feet): 5 Height (Inches): 0.00 Weight (Pounds): 100 Objective GENERAL: Alert, awake Neck: Range of motion is full in all directions. No tenderness to paracervical muscles. No adenopathy. LUNGS: Clear. HEART: S1 and S2 is regular. ABDOMEN: Benign. Extremities: left hip bandages applied. NEURO: No changes. SANTIAGO SANTOS Nov 30, 2016 12:45
[2016-11-30 15:44] VITALS: BP 109/68
--- NOTE | 2016-11-30 16:08 | Pulmonology Progress Note ---
Assessment/Plan Problems: (1) Hip fracture, intertrochanteric (2) Dementia (3) Hypothyroid Assessment/Plan repeat wbc pain management tolerated surgery very well dvt prophylaxis CEA is elevated, pt followed by Oncology as outpatient dc home in am after pt evaluation Subjective Allergies: Coded Allergies: MORPHINE (Verified Allergy, Mild, 03/02/09) HYDROMORPHONE (Verified Allergy, Unknown, 01/13/11) Objective Last 24 Hour Vital Signs Date Time Temp Pulse Resp B/P (MAP) Pulse Ox O2 Delivery O2 Flow Rate FiO2 11/30/16 15:44 97.1 87 18 109/68 96 Room Air 11/30/16 12:00 97.3 82 19 144/71 99 Room Air 11/30/16 04:00 98.1 82 20 138/58 94 Room Air 11/30/16 00:00 97.9 84 20 121/96 94 Room Air 11/29/16 20:00 98.9 89 20 132/94 94 Room Air 11/29/16 19:06 99.3 Intake and Output 11/30/16 12/01/16 19:00 07:00 Intake Total 600 ml Balance 600 ml IV Total 600 ml # Bowel Movements 1 Microbiology Date/Time Source Procedure Growth Status 11/28/16 16:15 Indwelling Cath Urine Culture - Final NO GROWTH AFTER 48 HOURS Complete Laboratory Tests 11/30/16 06:45: White Blood Count 7.8, Red Blood Count 3.23L, Hemoglobin 9.9#L, Hematocrit 30.4L , Mean Corpuscular Volume 94, Mean Corpuscular Hemoglobin 30.7, Mean Corpuscular Hemoglobin Concent 32.7, Red Cell Distribution Width 15.0H, Platelet Count 212, Mean Platelet Volume 5.7L, Neutrophils (%) (Auto) 74.6, Lymphocytes (%) (Auto) 13.6L, Monocytes (%) (Auto) 9.8, Eosinophils (%) (Auto) 0.9, Basophils (%) (Auto) 1.0, Erythrocyte Sedimentation Rate 70H, Sodium Level 137, Potassium Level 4.8, Chloride Level 103, Carbon Dioxide Level 21, Anion Gap 13, Blood Urea Nitrogen 23, Creatinine 2.2H, Estimat Glomerular Filtration Rate , Glucose Level 108H, Calcium Level 10.1, Phosphorus Level 2.7, Magnesium Level 1.5L, Total Bilirubin 0.5, Aspartate Amino Transf (AST/SGOT) 19, Alanine Aminotransferase (ALT/SGPT) 5, Alkaline Phosphatase 67, C-Reactive Protein, Quantitative 20.1H, Total Protein 5.3L, Albumin 2.9L, Globulin 2.4, Albumin/ Globulin Ratio 1.2 Current Medications Medications (Trade) Dose Ordered Sig/Dustin Route PRN Reason Start Time Stop Time Status Last Admin Dose Admin Acetaminophen (Tylenol) 650 mg Q4H PRN ORAL Mild Pain/Temp > 100.5 11/28/16 09:30 12/28/16 09:29 11/29/16 18:07 Al Hydroxide/Mg Hydroxide (Mylanta II) 30 ml Q6H PRN ORAL dyspepsia 11/24/16 21:15 12/24/16 21:14 Amiodarone HCl (Cordarone) 100 mg DAILY ORAL 11/25/16 09:00 12/25/16 08:59 11/30/16 09:26 Aspirin (ASA) 81 mg DAILY ORAL 11/27/16 09:00 12/27/16 08:59 11/30/16 09:22 Chlorhexidine Gluconate (Coco-Hex 2%) 1 applic DAILY TOPIC 11/29/16 09:00 12/29/16 08:59 11/30/16 09:25 Dextrose (Dextrose 50%) STAT PRN IV Hypoglycemia 11/24/16 21:15 12/24/16 21:14 Dextrose/Sodium Chloride 1,000 ml @ 75 mls/hr [id number] IV 11/28/16 13:25 12/28/16 13:24 11/30/16 05:31 Docusate Sodium (Colace) 100 mg THREE TIMES A DAY ORAL 11/28/16 09:00 12/28/16 08:59 Donepezil HCl (Aricept) 5 mg DAILY ORAL 11/25/16 09:00 12/25/16 08:59 Epoetin Dane (Procrit (for ESRD on dialysis)) 7,000 units MoWeFr@2100 SUBQ 11/29/16 21:00 12/29/16 20:59 11/29/16 20:35 Heparin Sodium (Porcine) (Heparin 5000 units/ml) 5,000 units EVERY 12 HOURS SUBQ 11/24/16 22:30 12/24/16 22:29 11/30/16 09:23 Iron Sucrose 100 mg/Sodium Chloride 60 ml @ 240 mls/hr BEDTIME IV 11/28/16 21:00 12/02/16 21:14 11/29/16 20:36 Letrozole (Femara) 2.5 mg DAILY ORAL 11/26/16 12:30 12/01/16 12:29 11/30/16 09:21 Levothyroxine Sodium (Synthroid) 100 mcg ACBREAKFAST ORAL 11/27/16 06:30 12/27/16 06:29 11/30/16 05:59 Lidocaine (Lidoderm 5% PATCH) 1 patch DAILY TDERMAL 11/25/16 09:30 12/25/16 09:29 11/30/16 09:25 Lorazepam (Ativan 2mg/ml 1ml) 0.5 mg Q4H PRN IV For Anxiety 11/24/16 21:15 12/01/16 21:14 Magnesium Hydroxide (Mom) 30 ml DAILYPRN PRN ORAL Constipation 11/27/16 19:30 12/27/16 19:29 Ondansetron HCl (Zofran) 4 mg Q6H PRN IVP Nausea & Vomiting 11/27/16 19:30 12/27/16 19:29 Oxycodone/ Acetaminophen (Percocet 5-325) 1 tab Q6H PRN ORAL Pain 4-10 11/27/16 20:00 12/04/16 19:59 11/28/16 16:55 Polyethylene Glycol (Miralax) 17 gm HSPRN PRN ORAL Constipation 11/24/16 21:15 12/24/16 21:14 Zolpidem Tartrate (Ambien) 5 mg HSPRN PRN ORAL Insomnia 11/24/16 21:15 12/01/16 21:14 GILLES ALVAREZ Nov 30, 2016 16:08
--- NOTE | 2016-12-01 08:08 | General Progress Note ---
Assessment/Plan Assessment/Plan ASSESSMENT AND PLAN: 1. Elevated CEA. Can be evaluated as an outpatient. The patient has had multiple endoscopies in the past. As of this time, we will not undergo any further procedures given the age and multiple comorbid conditions. 2. Breast cancer, status post treatment. 3. Lymphoma history, status post treatment. No evidence of recurrence at this time. 4. Anemia secondary to chronic disease. Workup has been reviewed. --> no evidence of iron deficiency --> s/p blood transfusion, HH improved 5. Left hip fracture, comminuted 6. Dementia, progressive. 7. Protein-calorie malnutrition. 8. Coagulase-negative Staph bacteremia, status post treatment. 9. Dehydration, status post IV fluids. Subjective Date patient seen: Nov 30, 2016 Constitutional: Reports: no symptoms HEENT: Reports: no symptoms Cardiovascular: Reports: no symptoms Respiratory: Reports: no symptoms Gastrointestinal/Abdominal: Reports: no symptoms Genitourinary: Reports: no symptoms Neurologic/Psychiatric: Reports: no symptoms Endocrine: Reports: no symptoms Hematologic/Lymphatic: Reports: anemia Allergies: Coded Allergies: MORPHINE (Verified Allergy, Mild, 03/02/09) HYDROMORPHONE (Verified Allergy, Unknown, 01/13/11) Subjective s/p blood transfusion, hgb better Objective Last 24 Hour Vital Signs Date Time Temp Pulse Resp B/P (MAP) Pulse Ox O2 Delivery O2 Flow Rate FiO2 11/30/16 15:44 97.1 87 18 109/68 96 Room Air 11/30/16 12:00 97.3 82 19 144/71 99 Room Air Height (Feet): 5 Height (Inches): 0.00 Weight (Pounds): 100 General Appearance: no apparent distress EENT: normal ENT inspection Neck: normal alignment Cardiovascular: normal peripheral pulses Abdomen: normal bowel sounds Skin: warm/dry Raphael Portillo Dec 01, 2016 08:08
--- NOTE | 2016-12-01 09:15 | Progress Note ---
DATE: 11/28/2016 Subjective: The patient is postop day #1 status post ORIF of the left hip. She is doing relatively well. No issues overnight. Assessment: Status post open reduction and internal fixation left hip fracture. Discussion: At this point, she can work with PT and OT. They can work to get her to transfer to a chair and wheelchair. They can work on discharge planning for the weekend. She can follow up as an outpatient in 2 to 3 weeks. In terms of DVT prophylaxis, I leave that up to the PMD to decide what is the most appropriate treatment. In the meantime while she is here, she will be on SCDs and we will maintain on subcu heparin for DVT prophalaxis, discussed with the patient's family. Mateo Urban M.D. DR: HASMUKH JOB#: [id number] CC: ARIELLA
--- NOTE | 2016-12-01 12:56 | Infectious Diseases Prog Note ---
Assessment/Plan Assessment/Plan I was informed by Ara Montgomery NP tht pt has +ve blood Cx : GPC, I called pt home health [phone] to arrange or inform the family that pt need to be readmitted in hospital ,they agreed to do so , Subjective Allergies: Coded Allergies: MORPHINE (Verified Allergy, Mild, 03/02/09) HYDROMORPHONE (Verified Allergy, Unknown, 01/13/11) Objective Vital Signs Last 24 Hour Vital Signs Date Time Temp Pulse Resp B/P (MAP) Pulse Ox O2 Delivery O2 Flow Rate FiO2 11/30/16 15:44 97.1 87 18 109/68 96 Room Air Height (Feet): 5 Height (Inches): 0.00 Weight (Pounds): 100 Microbiology Date/Time Source Procedure Growth Status 11/29/16 20:45 Blood Blood Culture - Preliminary Resulted 11/29/16 20:30 Blood Blood Culture - Preliminary Resulted 11/28/16 16:15 Indwelling Cath Urine Culture - Final NO GROWTH AFTER 48 HOURS Complete ELAINE MATHIS M.D. Dec 01, 2016 12:56
--- NOTE | 2016-12-03 10:53 | Discharge Summary ---
Discharge Summary Hospital Course Date of Admission Nov 24, 2016 at 16:34 Date of Discharge Nov 30, 2016 at 16:33 Admitting Diagnosis LEFT HIP FRACTURE HPI Juana Mendez is a 86 year old female who was admitted on Nov 24, 2016 at 16:34 for Left Hip Fracture Hospital Course dc summary #[id number] Discharge Medications Continued Medications: Amiodarone Hcl (Amiodarone Hcl) 100 Mg Tablet 100 MG ORAL DAILY, TAB Aspirin* (Aspir 81*) 81 Mg Tablet.dr 81 MG ORAL DAILY, TAB Donepezil Hcl* (Donepezil Hcl*) 5 Mg Tab.rapdis 5 MG ORAL DAILY, TAB Levothyroxine Sodium* (Levothroid*) 25 Mcg Tablet MCG PO DAILY Simvastatin (Zocor) 20 Mg Tablet 20 MG ORAL BEDTIME, TAB Vitamin B Complex (Vitamin B Complex) 1 Each Capsule 2 CAP ORAL DAILY, CAP 0 Refills Discharge Condition Upon Discharge: stable Discharge Disposition Patient was discharged to Home with Home Health(06) Discharge Diagnoses: Discharge Instructions Discharge Instructions Special Instructions I have been assigned to complete a D/C Summary on this account. I was not involved in the patient management Ara Montgomery NP (Vanchtein) Dec 03, 2016 10:53
--- NOTE | 2016-12-04 06:45 | Discharge Summary 2 SIG ---
DATE OF ADMISSION: 11/24/2016 DATE OF DISCHARGE: 11/30/2016 Reason For Admission: The patient is an 86-year-old female with past medical history significant for hypertension, cerebrovascular accident, paroxysmal atrial fibrillation, chronic kidney disease requiring hemodialysis, currently off hemodialysis, breast cancer, lymphoma, advanced dementia, hypothyroidism, and arthritis, presented to [facility] emergency room after episode of mechanical fall. The patient was diagnosed to have left hip intertrochanteric fracture. The patient was admitted for further management. ADMITTING DIAGNOSES: 1. Left intertrochanteric hip fracture. 2. Advanced dementia. 3. Hypothyroidism. 4. Severe protein-calorie malnutrition. 5. Arthritis. 6. Left hip pain. 7. Chronic kidney disease, stage 5. 8. History of breast cancer. 9. Paroxysmal atrial fibrillation. 10. Dehydration. Upon admission, noted creatinine 2.7 and BUN of 25. No leukocytosis. Hemoglobin 10.0 and hematocrit 29.5. Hospital Stay: The patient was admitted. The patient's daughter wanted the patient to be transferred to [facility], however, the patient was unable to be transferred due to lack of available bed. Orthopedic surgeon consult was requested. The patient subsequently undergone on 11/27/2016 open reduction and internal fixation of left intertrochanteric hip fracture with intramedullary device. Course of recovery was uneventful. Pain management provided. The patient started to work with physical and occupational therapy. DVT prophylaxis provided. Structural Fitter was consulted due to the chronic kidney disease. According to the place change roof bolter, the patient has a recurrent dehydration and required intravenous fluids. With intravenous fluids, creatinine from 2.7 down to 2.2 on discharge at her baseline. Renal ultrasound revealed echogenic, slightly atrophic right kidney consistent with medical renal disease, but no evidence of hydronephrosis. Pain specialist was consulted for pain management. Pain management was addressed. The patient was on the Lidoderm patch and Tylenol as needed. Pain was controlled. TSH was within normal limits. The current dose of levothyroxine was continued. Anemia workup revealed anemia of chronic likely kidney disease. The patient required one unit of packed red blood cells for hemoglobin 7.5 and hematocrit 23.6. Subsequently after blood transfusion prior to discharge, hemoglobin 9.9 and hematocrit 30.4. Noted elevated CEA 6.1. Hematology/Oncology consult was requested. Per oncologist, the patient can have evaluation of the elevated CEA as an outpatient. The patient had multiple endoscopies in the past. The patient is status post treatment for breast cancer and lymphoma history. The patient is on Femara and no evidence of recurrence at this time. No evidence of iron deficiency anemia. Dietary evaluation was requested due to protein-calorie malnutrition and dietary recommendations were implemented during the patient's stay in the hospital. The patient has a history of paroxysmal atrial fibrillation. Amiodarone continued. LFTs within normal limits. The patient started to work with physical and occupational therapist. The patient had one day leukocytosis of 17.4, no fever, which resolved the next day, that was the day postoperatively. ID consult was requested. The patient has a history of recent coagulase-negative staphylococcal bacteremia, status post treatment. Left arm still has the port. According to Infectious Disease recommendation, the patient's leukocytosis postoperatively resolved in one day. The patient is afebrile, most likely reactive. Urine culture was negative. Urinalysis was benign. The patient has no evidence of wound infection. The patient was kept off antibiotics. Blood culture were obtained when the patient was discharged and it was found that blood culture 3/4 was positive for Staph coag-negative. Infectious Disease doctor was notified, who spoke with the home health services and the patient will be started on the IV vancomycin for bacteremia. DISCHARGE DIAGNOSES: 1. Left intertrochanteric hip fracture. 2. Status post open reduction and internal fixation of left intertrochanteric hip fracture with intramedullary device. 3. Staphylococcus coagulase-negative bacteremia. 4. Recent history of Staphylococcus coagulase-negative infection, status post treatment. 5. Dehydration. 6. Chronic kidney disease, stage 5 with history of hemodialysis. 7. Anemia of chronic kidney disease. 8. Status post blood transfusion. 9. Elevated CEA. 10. History of breast cancer. 11. History of lymphoma. 12. Paroxysmal atrial fibrillation. 13. Severe protein-calorie malnutrition. 14. Arthritis. 15. Advanced dementia. 16. Hypothyroidism. Discharge Medications: See medication reconciliation list. In addition, the patient will be continued on vancomycin as specified by ID doctor with his conversations with home health. Discharge Instructions: The patient is discharged home with home health services. Follow up for physical therapy. Follow up with the primary medical doctor. Outpatient workup for elevated CEA. Mateo Pearson M.D. I have been assigned to dictate discharge summary on this account and I was not involved in the patient's management. Ara Montgomery N.P. (vanchtein) DR: VERÓNICA JOB#: [id number] CC:
== END 2016-11-30 16:33 | disposition home health service (06) | DRG 480 ==
LOC: EDBD 15:24 → EMR 16:16 → 4E 16:34 → EDBEDREQ 19:10
PROC: 0QS736Z Reposition Left Upper Femur with Intramedullary Internal Fixation Device, Percutaneous Approach (ICD-10-PCS; principal; 2016-11-27 16:00)
PROC: 0QH934Z Insertion of Internal Fixation Device into Left Femoral Shaft, Percutaneous Approach (ICD-10-PCS; principal; 2016-11-27 16:00)
PROC: 30233N1 Transfusion of Nonautologous Red Blood Cells into Peripheral Vein, Percutaneous Approach (ICD-10-PCS; 2016-11-29)
DX: S72.145A Nondisplaced intertrochanteric fracture of left femur, initial encounter for closed fracture (principal); E43 Unspecified severe protein-calorie malnutrition; I12.0 Hypertensive chronic kidney disease with stage 5 chronic kidney disease or end stage renal disease; J44.9 Chronic obstructive pulmonary disease, unspecified; I48.0 Paroxysmal atrial fibrillation; F03.90 Unspecified dementia, unspecified severity, without behavioral disturbance, psychotic disturbance, mood disturbance, and anxiety; R64 Cachexia; Z68.1 Body mass index [BMI] 19.9 or less, adult; D62 Acute posthemorrhagic anemia; N18.5 Chronic kidney disease, stage 5; E03.9 Hypothyroidism, unspecified; W18.30XA Fall on same level, unspecified, initial encounter; Z85.3 Personal history of malignant neoplasm of breast; Z86.73 Personal history of transient ischemic attack (TIA), and cerebral infarction without residual deficits; Z88.6 Allergy status to analgesic agent; M19.90 Unspecified osteoarthritis, unspecified site; K21.9 Gastro-esophageal reflux disease without esophagitis; Z85.72 Personal history of non-Hodgkin lymphomas; D63.8 Anemia in other chronic diseases classified elsewhere; Z95.0 Presence of cardiac pacemaker; R97.0 Elevated carcinoembryonic antigen [CEA]; E86.0 Dehydration; B95.7 Other staphylococcus as the cause of diseases classified elsewhere
CPT/HCPCS: 36415; 71010; 72170; 72192; 73502; 76000; 76775; 80048; 80053; 81001; 82270; 82378; 82550; 82607; 82728; 82746; 83540; 83550; 83615; 83735; 84100; 84443; 84550; 85007; 85025; 85044; 85060; 85610; 85651; 85730; 86140; 86850; 86900; 86901; 86920; 87040; 87086; 87181; 94003; 94150; 99285; J2250; J3490

== ENCOUNTER 2017-03-13 21:40 | Inpatient (IN) | payer MEDICARE, OTHER ==
[~2017-03-13] VITALS: Ht 147.3 cm; Wt 46.3 kg
[~2017-03-13 21:40] MED LIST changes: +ASPIR 8181 MG ORAL; +FEMARA2.5 MG ORAL; +LEVOTHYROXINE25 MCG ORAL
[2017-03-13] MEDS ORDERED: NS 1000ml 1,400 ML IVLG ONE (22:00)
[2017-03-13 22:10] VITALS: BP 122/78
[2017-03-13] MEDS ORDERED: Miralax 17gm pkt ORAL PRN (22:15)
[2017-03-13] MEDS ORDERED: Nitroglycerin Subl 0.4mg tab SL PRN (22:15)
[2017-03-13 23:22] LABS: HEMATOCRIT 33.6 % (37.0-47.0); HEMOGLOBIN 9.9 G/DL (12.0-16.0); LYMPHOCYTES % (AUTO) 22.3 % (20.0-45.0); MEAN CORPUSCULAR VOLUME 98 FL (80-99); MONOCYTES % (AUTO) 8.2 % (1.0-10.0); NEUTROPHILS % (AUTO) 68.6 % (45.0-75.0); PLATELET COUNT 179 K/UL (150-450); RED BLOOD COUNT 3.44 M/UL (4.20-5.40); RED CELL DISTRIBUTION WIDTH 14.7 % (11.6-14.8); WHITE BLOOD COUNT 8.9 K/UL (4.8-10.8)
[2017-03-13 23:25] LABS: APPEARANCE,URINE CLOUDY; BILIRUBIN, URINE NEGATIVE (NEGATIVE); GLUCOSE, URINE (UA) NEGATIVE (NEGATIVE); KETONES,URINE NEGATIVE (NEGATIVE); LEUKOCYTE ESTERASE ,URINE 3+ (NEGATIVE); NITRITE,URINE POSITIVE (NEGATIVE); PH,URINE 5 (4.5-8.0); PROTEIN,URINE 3+ (NEGATIVE); UROBILINOGEN,URINE NORMAL MG/DL (0.0-1.0)
[2017-03-13 23:44] LABS: COLOR,URINE YELLOW
[2017-03-13 23:45] LABS: ANION GAP 11 mmol/L (5-15); BLOOD UREA NITROGEN 45 mg/dL (7-18); CALCIUM 8.5 MG/DL (8.5-10.1); CARBON DIOXIDE 22 MMOL/L (21-32); CHLORIDE 104 MMOL/L (98-107); CREATININE 3.5 MG/DL (0.55-1.30); POTASSIUM 4.9 MMOL/L (3.5-5.1); SODIUM 137 MMOL/L (136-145)
[2017-03-13] MEDS ORDERED: cefTRIAXone 1 GM in NS 55 ML IVPB ONE (23:45)
[2017-03-13 23:59] LABS: ALANINE AMINOTRANSFERASE 18 U/L (12-78); ALBUMIN 2.8 G/DL (3.4-5.0); ALKALINE PHOSPHATASE 56 U/L (46-116); ASPARTATE AMINO TRANSFERASE 30 U/L (15-37); BILIRUBIN,TOTAL 0.3 MG/DL (0.2-1.0); CKMB 0.9 NG/ML (0.0-3.6); CREATINE KINASE 111 U/L (26-308)
[2017-03-14] VITALS (7 sets, daily range): BP systolic 110–142; BP diastolic 47–104
--- NOTE | 2017-03-14 00:14 | Emergency Room Report ---
History of Present Illness General Chief Complaint: Generalized Weakness Source: Family Member, EMS Present Illness HPI This is an 87-year-old female with history dementia, renal insufficiency and high blood pressure. She also has chronic dehydration. She presents with chief complaint of altered mental status. Per daughter at baseline she walks with a walker. Able to food. For the last 2 weeks she's been having coughing and congestion. Took a course of antibiotics without relief. She was sleeping all day today. Woke up wants to have some liquid. Daughter said she had a temperature 102.8. Tylenol was given. Patient was cooled down. Because she would not eat any more daughter was concerned called 911. No nausea vomiting. No diarrhea. Allergies: Coded Allergies: MORPHINE (Verified Allergy, Mild, 03/02/09) HYDROMORPHONE (Verified Allergy, Unknown, 01/13/11) Uncoded Allergies: morphine sulfate (Allergy, Intermediate, 03/13/17) Patient History Past Medical History: see triage record, old chart reviewed, HTN, renal disease Past Surgical History: other Pertinent Family History: none Social History: Denies: smoking Now: No Immunizations: other Reviewed Nursing Documentation: PMH: Agreed, PSxH: Agreed Nursing Documentation-PMH Past Medical History: No History, Except For Hx Cardiac Problems: Yes Hx Hypertension: Yes Hx COPD: Yes Hx Cancer: Yes Hx Gastrointestinal Problems: Yes Hx Dialysis: Yes - non-specfic kdney issue Hx Neurological Problems: Yes - dementia Hx Dementia: Yes Hx Dizziness: Yes Hx Syncope: Yes Hx Weakness: Yes Review of Systems Constitutional: Reports: malaise, weakness Eye: Denies: eye pain, blurred vision ENT: Denies: ear pain, nose congestion, throat swelling Respiratory: Denies: cough, shortness of breath Cardiovascular: Denies: chest pain, palpitations Gastrointestinal: Denies: abdominal pain, diarrhea, nausea, vomiting Musculoskeletal: Denies: back pain, joint pain Skin: Denies: rash Neurological: Denies: headache, numbness Endocrine: Denies: increased thirst, increased urine Hematologic/Lymphatic: Denies: easy bruising All Other Systems: negative except mentioned in HPI Physical Exam Vital Signs Date Time Temp Pulse Resp B/P (MAP) Pulse Ox O2 Delivery O2 Flow Rate FiO2 03/13/17 21:31 97.9 77 14 112/46 100 Room Air vitals normal Sp02 EP Interpretation: reviewed, normal General Appearance: no apparent distress, thin, Chronically Ill Head: normocephalic, atraumatic Eyes: bilateral eye PERRL, bilateral eye EOMI ENT: hearing grossly normal, normal pharynx Neck: full range of motion, supple, no meningismus Respiratory: chest non-tender, lungs clear, normal breath sounds Cardiovascular #1: regular rate, rhythm, no murmur Gastrointestinal: normal bowel sounds, non tender, no mass, no organomegaly, no bruit, non-distended Musculoskeletal: back normal, normal range of motion Neurologic: alert, grossly normal Psychiatric: mood/affect normal Skin: warm/dry Medical Decision Making Diagnostic Impression: Primary Impression: Episode of generalized weakness Additional Impressions: Encephalopathy acute UTI (urinary tract infection) Qualified Codes: N30.00 - Acute cystitis without hematuria Proteinuria Qualified Codes: R80.9 - Proteinuria, unspecified Sepsis Qualified Codes: A41.9 - Sepsis, unspecified organism Anemia in chronic kidney disease Qualified Codes: N18.9 - Chronic kidney disease, unspecified; D63.1 - Anemia in chronic kidney disease ER Course Patient presents with altered mental status with UTI. She has a fever probably secondary to UTI/sepsis. No evidence of influenza. No evidence of pneumonia. IV fluid given here. I discussed the case with Dr. Harrison who knows the patient well. He will admit the patient. sepsis reevaluation: Time: 12:12am VS: Temp 98 HR 77 BP 120/80 RR 18 CVS: RRR Respiratory: Lungs clear bilaterally Peripheral pulses: 2+ radial Capillary refill: <2 seconds Skin exam: warm, dry, no rash, not mottled Lab Results Impression Labs unremarkable. at baseline. EKG Diagnostic Results Rate: normal Rhythm: NSR ST Segments: no acute changes Rhythm Strip Diag. Results Rhythm Strip Time: 00:14 EP Interpretation: yes Rate: 75 Rhythm: NSR, no PVC's, no ectopy Chest X-Ray Diagnostic Results Chest X-Ray Diagnostic Results : Chest X-Ray Ordered: Yes # of Views/Limited/Complete: 1 View Indication: Shortness of Breath EP Interpretation: Yes Interpretation: no consolidation, no effusion, no pneumothorax, no acute cardiopulmonary disease Impression: No acute disease Last Vital Signs Date Time Temp Pulse Resp B/P (MAP) Pulse Ox O2 Delivery O2 Flow Rate FiO2 03/13/17 22:10 97.9 74 21 122/78 98 Room Air Status: improved Disposition: ADMITTED INPATIENT Condition: Serious Referrals: NON PHYSICIAN (PCP) MARIA C DE LUNA M.D. Mar 14, 2017 00:14
[2017-03-14] MEDS ORDERED: Vancomycin 1gm/D5W 275ml IVPB ONE ×2 (01:00)
[2017-03-14] MEDS ORDERED: Vancomycin 1gm inj IVPB ONE (01:07)
[2017-03-14] MEDS ORDERED: Cefepime 1gm vial ONE (01:08)
[2017-03-14] MEDS: Cefepime HCl 1 GM in D5W 55 ML IVPB SCH ×2 (01:14→22:00)
[2017-03-14] MEDS ORDERED: Aspirin EC 81mg tab ORAL SCH ×3 (09:00)
[2017-03-14] MEDS: Docusate 100mg cap ORAL SCH ×2 (09:00→20:42)
[2017-03-14] MEDS: Donepezil 5mg Tab ORAL SCH (09:00)
--- NOTE | 2017-03-14 09:11 | Diagnostic Imaging Report ---
Indication: Shortness of breath Technique: XRAY Chest 1v Comparison: 11/30/2016 Findings: Patient is rotated to the right. Heart size within normal limits. There is prominence of the right superior mediastinum. This seems slightly increased compared to the prior exam. There is nonspecific increased interstitial prominence. No definite focal consolidation. Left chest port has its catheter tip at the cavoatrial junction. There is osteopenia with mild scoliosis and multilevel degenerative change of the thoracic spine. No acute osseous abnormality seen. Clips are noted in the right axillary region and right arm. Surgical anchors noted in the right humeral head. Impression: Density in the right superior mediastinal region appears slightly more prominent compared to the prior exam. CT of the chest recommended for better evaluation. Nonspecific interstitial prominence. No definite focal consolidation. Study obtained via ER. Patient admitted to the hospital ([facility]) time of creation of final report.
[2017-03-14 09:19] LABS: BASOPHILS % (AUTO) 0.9 % (0.0-2.0); HEMATOCRIT 26.8 % (37.0-47.0); HEMOGLOBIN 8.7 G/DL (12.0-16.0); LYMPHOCYTES % (AUTO) 19.1 % (20.0-45.0); MEAN CORPUSCULAR VOLUME 97 FL (80-99); MONOCYTES % (AUTO) 6.1 % (1.0-10.0); NEUTROPHILS % (AUTO) 73.9 % (45.0-75.0); PLATELET COUNT 161 K/UL (150-450); RED BLOOD COUNT 2.77 M/UL (4.20-5.40); RED CELL DISTRIBUTION WIDTH 14.7 % (11.6-14.8); WHITE BLOOD COUNT 10.3 K/UL (4.8-10.8)
[2017-03-14 09:49] LABS: ALANINE AMINOTRANSFERASE 17 U/L (12-78); ALBUMIN 2.4 G/DL (3.4-5.0); ALBUMIN/GLOBULIN RATIO 0.9 (1.0-2.7); ALKALINE PHOSPHATASE 47 U/L (46-116); ANION GAP 11 mmol/L (5-15); ASPARTATE AMINO TRANSFERASE 30 U/L (15-37); BILIRUBIN,TOTAL 0.3 MG/DL (0.2-1.0); BLOOD UREA NITROGEN 41 mg/dL (7-18); CALCIUM 7.7 MG/DL (8.5-10.1); CARBON DIOXIDE 21 MMOL/L (21-32); CHLORIDE 107 MMOL/L (98-107); CREATININE 2.9 MG/DL (0.55-1.30); POTASSIUM 4.6 MMOL/L (3.5-5.1); SODIUM 139 MMOL/L (136-145)
[2017-03-14] MEDS: Levothyroxine 25mcg tab ORAL SCH (10:39)
[2017-03-14] MEDS: Amiodarone 200mg tab ORAL SCH (10:40)
[2017-03-14] MEDS: Aspirin Baby 81mg ORAL SCH (10:40)
[2017-03-14] MEDS: Heparin 5000 units/ml inj SUBQ SCH ×2 (10:43→20:48)
--- NOTE | 2017-03-14 16:31 | History and Physical Report ---
DATE OF ADMISSION: 03/13/2017 CHIEF COMPLAINT AND REASON FOR HOSPITALIZATION: The patient is an 87-year-old lady admitted with fever, weakness, poor oral intake. HISTORY OF PRESENT ILLNESS: The patient is well known to me. She has chronic kidney disease, progressive dementia, history of diastolic CHF, paroxysmal atrial fibrillation, and prior retreatment for lymphoma and breast cancer which are not active at this time. She has had hospitalizations earlier this year with coagulase-negative Staphylococcus infection due to a port infection and the port still remains in the left upper arm. She received a course of antibiotics for the above. She now has cough, fever, and chills. PAST SURGICAL HISTORY: Right shoulder surgery, herniorrhaphy, left breast biopsy, lymphoma biopsy, AV fistula of right arm, dialysis catheter, multiple ports, and pacemaker. MEDICATIONS: At home include amiodarone, aspirin, vitamin D3, donepezil, Femara, levothyroxine, Zocor, vitamin B complex. HABITS: She is a nondrinker, nonsmoker. SYSTEM REVIEW: The patient is unable. Major problems as above. PHYSICAL EXAMINATION: GENERAL: The patient is sitting up in bed, eating at the time of my exam. VITAL SIGNS: Temperature 98.4, pulse 77, respirations 20, and blood pressure 125/63. HEAD, EYES, EARS, NOSE, THROAT: Sclerae are nonicteric. Ocular motions intact in all directions. Oral mucosa slightly dry. NECK: No adenopathy or thyroid enlargement. LUNGS: Clear. HEART: Regular rhythm. I hear no murmur. BREASTS: No masses. ABDOMEN: Soft without organomegaly or masses. EXTREMITIES: No edema, cyanosis, or clubbing. There is a port in the left upper arm and an AV fistula in the right arm. NEUROLOGIC: She is alert, responsive, disoriented. Cranial nerves are intact. No focal findings. LABORATORY DATA: Pertinent laboratories on admission, white count 8.9, hemoglobin 9.9. BUN 45, creatinine 3.5, albumin is 2.8. Troponin 0.01. IMPRESSION: Fever, chills, and cough, etiology not yet determined. She has pyuria and could have urinary tract infection. She could have pulmonary infection, but no specific findings on chest x-ray. This could be a port infection or recurrent sepsis. Other medical problems as above. PLAN: The patient will be given broad-spectrum antibiotics. We will watch closely in view of her comorbidities. Case was discussed in detail with the daughter at the bedside. Malcolm Harrison M.D. DR: Quynh JOB#: [id number] CC:
[2017-03-14] MEDS ORDERED: D5W 275ml ONE (17:01)
[2017-03-14] MEDS ORDERED: Tubing IV Secondary IV ONE (17:01)
[2017-03-14] MEDS: Cefepime HCl 0.5 GM in D5W 55 ML IVPB SCH (22:01)
[2017-03-15] VITALS: BP 118/56
[2017-03-15 04:52] VITALS: BP 130/87
[2017-03-15 07:37] LABS: BASOPHILS % (AUTO) 0.7 % (0.0-2.0); EOSINOPHILS % (AUTO) 0.1 % (0.0-3.0); HEMATOCRIT 28.4 % (37.0-47.0); HEMOGLOBIN 9.2 G/DL (12.0-16.0); LYMPHOCYTES % (AUTO) 29.9 % (20.0-45.0); MEAN CORPUSCULAR VOLUME 95 FL (80-99); MONOCYTES % (AUTO) 6.6 % (1.0-10.0); NEUTROPHILS % (AUTO) 62.8 % (45.0-75.0); PLATELET COUNT 163 K/UL (150-450); RED BLOOD COUNT 2.98 M/UL (4.20-5.40); RED CELL DISTRIBUTION WIDTH 14.7 % (11.6-14.8); WHITE BLOOD COUNT 8.1 K/UL (4.8-10.8)
[2017-03-15 08:00] VITALS: BP 119/57
[2017-03-15 08:07] LABS: ANION GAP 10 mmol/L (5-15); BLOOD UREA NITROGEN 43 mg/dL (7-18); CARBON DIOXIDE 20 MMOL/L (21-32); CHLORIDE 109 MMOL/L (98-107); CREATINE KINASE 89 U/L (26-308); POTASSIUM 4.7 MMOL/L (3.5-5.1); SODIUM 138 MMOL/L (136-145)
[2017-03-15] MEDS: Docusate 100mg cap ORAL SCH ×2 (09:00→21:00)
[2017-03-15] MEDS: Donepezil 5mg Tab ORAL SCH (09:00)
[2017-03-15] MEDS ORDERED: Vancomycin 750mg/NS 250ml IVPB ONE (10:00)
[2017-03-15] MEDS: Levothyroxine 25mcg tab ORAL SCH (10:11)
[2017-03-15] MEDS: Cefepime HCl 0.5 GM in D5W 55 ML IVPB SCH ×2 (10:11→21:25)
[2017-03-15] MEDS: Amiodarone 200mg tab ORAL SCH (10:12)
[2017-03-15] MEDS: Aspirin Baby 81mg ORAL SCH (10:12)
[2017-03-15] MEDS: Heparin 5000 units/ml inj SUBQ SCH ×2 (10:18→21:27)
--- NOTE | 2017-03-15 11:48 | General Progress Note ---
Assessment/Plan Problem List: (1) Dehydration ICD Codes: E86.0 - Dehydration SNOMED: 23503682 (2) CAD (coronary artery disease) ICD Codes: I25.10 - Atherosclerotic heart disease of [place] coronary artery without angina pectoris SNOMED: 71469146 (3) Cough ICD Codes: R05 - Cough SNOMED: 07854617 (4) CKD (chronic kidney disease) stage 5, GFR less than 15 ml/min ICD Codes: N18.5 - Chronic kidney disease, stage 5 SNOMED: 364392600 (5) UTI (urinary tract infection) ICD Codes: N39.0 - Urinary tract infection, site not specified SNOMED: 09267987 Qualifiers: Qualified Codes: N30.00 - Acute cystitis without hematuria (6) Anemia in chronic kidney disease ICD Codes: N18.9 - Chronic kidney disease, unspecified; D63.1 - Anemia in chronic kidney disease SNOMED: 002375362, 846279012 Qualifiers: Qualified Codes: N18.9 - Chronic kidney disease, unspecified; D63.1 - Anemia in chronic kidney disease (7) Dementia ICD Codes: F03.90 - Unspecified dementia without behavioral disturbance SNOMED: 02105882 (8) Hypothyroid ICD Codes: E03.9 - Hypothyroidism, unspecified SNOMED: 22119818 Assessment/Plan culture pend continue atb iv fluids Subjective ROS Limited/Unobtainable: Yes Allergies: Coded Allergies: MORPHINE (Verified Allergy, Mild, 03/02/09) HYDROMORPHONE (Verified Allergy, Unknown, 01/13/11) Objective Last 24 Hour Vital Signs Date Time Temp Pulse Resp B/P (MAP) Pulse Ox O2 Delivery O2 Flow Rate FiO2 03/15/17 08:00 97.2 61 20 119/57 91 Room Air 03/15/17 04:52 98 Room Air 03/15/17 04:52 97.6 67 20 130/87 98 Room Air 03/15/17 00:00 97.2 68 20 118/56 Room Air 03/15/17 00:00 99 Room Air 03/14/17 20:00 97.8 61 18 110/50 96 03/14/17 16:12 97.3 84 20 128/47 99 Room Air 03/14/17 13:00 97.7 84 20 132/74 95 Room Air Intake and Output 03/14/17 03/15/17 19:00 07:00 Intake Total 420 ml 605 ml Balance 420 ml 605 ml Intake Oral 120 ml IV Total 300 ml 605 ml # Voids 1 # Bowel Movements 1 1 Laboratory Tests 03/15/17 06:25: White Blood Count 8.1, Red Blood Count 2.98L, Hemoglobin 9.2L, Hematocrit 28.4L , Mean Corpuscular Volume 95, Mean Corpuscular Hemoglobin 30.7, Mean Corpuscular Hemoglobin Concent 32.2, Red Cell Distribution Width 14.7, Platelet Count 163, Mean Platelet Volume 5.5L, Neutrophils (%) (Auto) 62.8, Lymphocytes ( %) (Auto) 29.9, Monocytes (%) (Auto) 6.6, Eosinophils (%) (Auto) 0.1, Basophils (%) (Auto) 0.7, Sodium Level 138, Potassium Level 4.7, Chloride Level 109H, Carbon Dioxide Level 20L, Anion Gap 10, Blood Urea Nitrogen 43H, Creatinine 3.0H , Estimat Glomerular Filtration Rate , Glucose Level 90, Calcium Level 8.0L, Total Creatine Kinase 89, Troponin I 0.010, Random Vancomycin Level 9.7 Height (Feet): 4 Height (Inches): 10.00 Weight (Pounds): 102 General Appearance: no apparent distress, alert, confused EENT: normal ENT inspection Neck: normal alignment Cardiovascular: normal rate, regular rhythm Respiratory/Chest: lungs clear Abdomen: non tender, soft Edema: no edema noted Arm (L), no edema noted Arm (R), no edema noted Leg (L), no edema noted Leg (R), no edema noted Pedal (L), no edema noted Pedal (R), no edema noted Generalized Neurologic: disoriented YARA COREY Mar 15, 2017 11:48
[2017-03-15 12:00] VITALS: BP 99/65
[2017-03-15] MEDS: Vitamin D 1000 IU Tab ORAL SCH (14:27)
[2017-03-15] MEDS: Guaifenesin/DM 10ml syrup ORAL PRN (14:42)
[2017-03-15 16:00] VITALS: BP 103/58
[2017-03-15 20:00] VITALS: BP 141/65
--- NOTE | 2017-03-15 20:22 | Wound Care Consultation ---
Wound Assessment Wound Assessment #1: Wound Number: 1 Wound Present on Admission: Yes New Wound: No Status Change of Wound: No Wound Location Body Site Modif: mid Wound Location Body Site: sacral Wound Type: pressure ulcer Himanshu Test: Does not Himanshu Pressure Ulcer Stage: Unstageable Wound Thickness: Full Thickness Wound Length: 6.0 Wound Width: 8.5 Wound Depth: utd Percent of Wound Purple/Maroon: 100 Wound Drainage Description: Serosanguineous Wound Drainage Amount: Scant Wound Drainage Odor: None/Absent Tissue Surrounding Wound: Indurated Wound General Appearance: Reddened - purple/maroon Wound Assessment #2: Wound Number: 2 Wound Present on Admission: Yes New Wound: No Status Change of Wound: No Wound Location Body Site Modif: mid Wound Location Body Site: coccyx Wound Type: pressure ulcer Himanshu Test: Does not Himanshu Pressure Ulcer Stage: II Wound Thickness: Partial Thickness Wound Length: 2.5 Wound Width: 1.0 Wound Depth: 0.1 Percent of Wound [place]/Red: 100 Wound Drainage Description: Serosanguineous Wound Drainage Amount: Scant Wound Drainage Odor: None/Absent Tissue Surrounding Wound: Erythemic Wound General Appearance: Reddened, Draining Wound Assessment #3: Wound Number: 3 Wound Present on Admission: Yes New Wound: No Status Change of Wound: No Wound Location Body Site: perineal area Wound Type: chemical burn Himanhsu Test: Does not Himanshu Percent of Wound [place]/Red: 100 Wound Drainage Amount: None Wound Drainage Odor: None/Absent Tissue Surrounding Wound: Erythemic Wound General Appearance: Reddened Wound Comment #1 Sacral unstageable pressure ulcer #2 Coccygeal area stage II pressure ulcer #3 Chemical burn on perineal area Recommendation -Local wound care per protocol -Keep clean and dry -Turn and reposition -Optimize nutrition -Low air loss P200 mattress -Offload both heels -Heel protector on both heels -Assess and f/u accordingly for any changes EVAN ANGULO RN Mar 15, 2017 20:22
[2017-03-15] MEDS ORDERED: Dyna-Hex 2% Top Sol 2oz TOPIC ONE (23:00)
[2017-03-16] VITALS: BP 112/68
[2017-03-16 04:00] VITALS: BP 105/52
[2017-03-16 08:15] VITALS: BP 160/114
[2017-03-16] MEDS: Amiodarone 200mg tab ORAL SCH (08:24)
[2017-03-16] MEDS: Aspirin Baby 81mg ORAL SCH (08:24)
[2017-03-16] MEDS: Vitamin D 1000 IU Tab ORAL SCH (08:24)
[2017-03-16] MEDS: Donepezil 5mg Tab ORAL SCH (08:25)
[2017-03-16] MEDS: Docusate 100mg cap ORAL SCH ×2 (08:25→21:00)
[2017-03-16] MEDS: Levothyroxine 25mcg tab ORAL SCH (08:25)
[2017-03-16] MEDS: Heparin 5000 units/ml inj SUBQ SCH ×2 (08:27→21:18)
[2017-03-16] MEDS: Guaifenesin/DM 10ml syrup ORAL PRN (08:33)
--- NOTE | 2017-03-16 10:36 | General Progress Note ---
Assessment/Plan Problem List: (1) Dehydration ICD Codes: E86.0 - Dehydration SNOMED: 23271511 (2) CAD (coronary artery disease) ICD Codes: I25.10 - Atherosclerotic heart disease of tetlin coronary artery without angina pectoris SNOMED: 05930098 (3) Cough ICD Codes: R05 - Cough SNOMED: 21846122 (4) CKD (chronic kidney disease) stage 5, GFR less than 15 ml/min ICD Codes: N18.5 - Chronic kidney disease, stage 5 SNOMED: 515562425 (5) UTI (urinary tract infection) ICD Codes: N39.0 - Urinary tract infection, site not specified SNOMED: 15297725 Qualifiers: Qualified Codes: N30.00 - Acute cystitis without hematuria (6) Anemia in chronic kidney disease ICD Codes: N18.9 - Chronic kidney disease, unspecified; D63.1 - Anemia in chronic kidney disease SNOMED: 622597773, 033179730 Qualifiers: Qualified Codes: N18.9 - Chronic kidney disease, unspecified; D63.1 - Anemia in chronic kidney disease (7) Dementia ICD Codes: F03.90 - Unspecified dementia without behavioral disturbance SNOMED: 07243781 (8) Hypothyroid ICD Codes: E03.9 - Hypothyroidism, unspecified SNOMED: 95027203 (9) Decubitus ulcer of back ICD Codes: L89.109 - Pressure ulcer of unspecified part of back, unspecified stage SNOMED: 685453904 Qualifiers: Qualified Codes: L89.109 - Pressure ulcer of unspecified part of back, unspecified stage Assessment/Plan culture noted amoxicillen skin dti wound care Subjective ROS Limited/Unobtainable: Yes Allergies: Coded Allergies: MORPHINE (Verified Allergy, Mild, 03/02/09) HYDROMORPHONE (Verified Allergy, Unknown, 01/13/11) Objective Last 24 Hour Vital Signs Date Time Temp Pulse Resp B/P (MAP) Pulse Ox O2 Delivery O2 Flow Rate FiO2 03/16/17 08:15 98.1 63 21 160/114 97 Room Air 03/16/17 04:00 Room Air 03/16/17 04:00 98.1 64 20 105/52 97 03/16/17 00:00 98.2 60 20 112/68 92 03/16/17 00:00 Room Air 03/15/17 20:00 Room Air 03/15/17 20:00 98.2 67 20 141/65 98 03/15/17 16:00 98.0 71 20 103/58 94 Room Air 03/15/17 12:00 97.9 101 20 99/65 98 Room Air Intake and Output 03/15/17 03/16/17 19:00 07:00 Intake Total 650 ml 405 ml Balance 650 ml 405 ml Intake Oral 600 ml IV Total 50 ml 405 ml # Voids 2 1 # Bowel Movements 2 1 Height (Feet): 4 Height (Inches): 10.00 Weight (Pounds): 102 General Appearance: no apparent distress, confused EENT: normal ENT inspection Neck: normal alignment Cardiovascular: normal rate Respiratory/Chest: lungs clear Abdomen: non tender, soft Edema: no edema noted Arm (L), no edema noted Arm (R), no edema noted Leg (L), no edema noted Leg (R), no edema noted Pedal (L), no edema noted Pedal (R), no edema noted Generalized Neurologic: disoriented YARA COREY Mar 16, 2017 10:36
[2017-03-16 12:09] VITALS: BP 163/60
[2017-03-16] MEDS ORDERED: 1/2 NS 1000ml IV ONE (14:36)
[2017-03-16 16:15] VITALS: BP 156/96
[2017-03-16 20:00] VITALS: BP 147/74
[2017-03-16] MEDS ORDERED: Dyna-Hex 2% Top Sol 2oz TOPIC SCH (20:00)
[2017-03-17] VITALS: BP 139/69
[2017-03-17 04:25] VITALS: BP 139/70
[2017-03-17] MEDS ORDERED: Levothyroxine 25mcg tab ORAL SCH (06:30)
[2017-03-17 08:00] VITALS: BP 126/81
[2017-03-17] MEDS: Vitamin D 1000 IU Tab ORAL SCH (08:52)
[2017-03-17] MEDS: Docusate 100mg cap ORAL SCH (08:53)
[2017-03-17] MEDS: Heparin 5000 units/ml inj SUBQ SCH (08:53)
[2017-03-17] MEDS: Aspirin Baby 81mg ORAL SCH (08:53)
[2017-03-17] MEDS: Amiodarone 200mg tab ORAL SCH (08:53)
[2017-03-17] MEDS: Donepezil 5mg Tab ORAL SCH (08:53)
[2017-03-17] MEDS ORDERED: AMOXIL250 MG ORAL (10:03)
[2017-03-17 11:58] VITALS: BP 113/74
[2017-03-17 16:00] VITALS: BP 113/76
[2017-03-17] MEDS ORDERED: Oseltamivir 75mg cap ORAL SCH (16:00)
--- NOTE | 2017-03-18 19:32 | Cardiology Report ---
APPROVED REPORT EKG Measurement Heart [id number] Normal sinus rhythm with sinus arrhythmia Normal ECG
--- NOTE | 2017-03-26 16:16 | Discharge Summary ---
Discharge Summary Hospital Course Date of Admission Mar 13, 2017 at 23:09 Date of Discharge Mar 17, 2017 at 20:10 Admitting Diagnosis dehydration. TAMAR Mendez is a 87 year old female who was admitted on Mar 13, 2017 at 23:09 for Dehydration Hospital Course [id number] Discharge Discharge Disposition Patient was discharged to SNF/Subacute Facility(03) Discharge Diagnoses: Merari Fairbanks NP Mar 26, 2017 16:16
--- NOTE | 2017-03-26 18:45 | Discharge Summary 2 SIG ---
DATE OF ADMISSION: 03/13/2017 DATE OF DISCHARGE: 03/17/2017 BRIEF HOSPITAL COURSE: The patient is an 87-year-old female, who has chronic kidney disease, progressive dementia, history of diastolic congestive heart failure, paroxysmal atrial fibrillation, and prior treatment for lymphoma and breast cancer, which are not active at this time. She had hospitalization early this year with coagulase negative Staphylococcus infection due to a port infection for which she received a course of antibiotics. She presented to ED for fever, weakness, and poor oral intake. Etiology not determined, could be secondary to urine infection or pulmonary infection, although no specific finding seen on chest x-ray. She was started on broad-spectrum antibiotics. Blood culture did not isolate any growth. Influenza screen was negative. She was given IV vancomycin and cefepime. Urine culture showed growth of E. coli. Antibiotic was transitioned to amoxicillin. She came in with sacral unstageable pressure ulcer and coccygeal stage II pressure ulcer. Wound care was provided. She underwent physical therapy and was eventually discharged to SNF. FINAL DIAGNOSES: 1. Dehydration. 2. Coronary artery disease. 3. Cough. 4. Chronic kidney disease. 5. Urinary tract infection with Escherichia coli. 6. Anemia of chronic kidney disease. 7. Dementia. 8. Hypothyroidism. 9. Pressure ulcer, present on admission. DISPOSITION: The patient was discharged to [facility] [place]. DISCHARGE MEDICATIONS: Refer to medication list. Continue with amoxicillin 250 mg q.12 hours for 10 days. Malcolm Harrison M.D. I have been assigned to dictate discharge summary on this account and I was not involved in the patient's management. Merari Fairbanks N.P. DR: VIKTORIA JOB#: [id number] CC:
[2017-05-16] MEDS ORDERED: AMIODARONE HCL400 M1 ORAL (20:58)
[2017-05-16] MEDS ORDERED: LEVOTHYROXINE25 MCG ORAL (20:59)
[2017-05-16] MEDS ORDERED: ASPIR 8181 MG ORAL (20:59)
[2017-05-16] MEDS ORDERED: FEMARA2.5 MG ORAL (20:59)
== END 2017-03-17 20:10 | DRG 690 ==
LOC: EDBD 21:40 → EMR 21:55 → 4E 23:09 → EDBEDREQ 23:44 → 4E 03-14 21:39
DX: N39.0 Urinary tract infection, site not specified (principal); L89.109 Pressure ulcer of unspecified part of back, unspecified stage; L89.152 Pressure ulcer of sacral region, stage 2; I12.0 Hypertensive chronic kidney disease with stage 5 chronic kidney disease or end stage renal disease; N18.5 Chronic kidney disease, stage 5; I48.0 Paroxysmal atrial fibrillation; F03.90 Unspecified dementia, unspecified severity, without behavioral disturbance, psychotic disturbance, mood disturbance, and anxiety; E86.0 Dehydration; D63.1 Anemia in chronic kidney disease; E03.9 Hypothyroidism, unspecified; I25.10 Atherosclerotic heart disease of native coronary artery without angina pectoris; Z95.0 Presence of cardiac pacemaker; B96.20 Unspecified Escherichia coli [E. coli] as the cause of diseases classified elsewhere; Z85.3 Personal history of malignant neoplasm of breast; Z85.72 Personal history of non-Hodgkin lymphomas
CPT/HCPCS: 36415; 71010; 80048; 80053; 80202; 81003; 82550; 82553; 83605; 84443; 84484; 85025; 85610; 85730; 86710; 87040; 87086; 87181; 93005; 99285

== ENCOUNTER 2017-04-08 13:27 | Outpatient (RCR) | payer MEDICARE, OTHER ==
[~2017-04-08] VITALS: Ht 147.3 cm; Wt 45.4 kg
[~2017-04-08 13:27] MED LIST changes: +AMOXIL250 MG ORAL
[2017-04-10] MEDS ORDERED: Lidocaine 4% Top Soln 50ml TOPIC ONE (11:15)
[2017-04-10] MEDS ORDERED: Lidocaine 2% 20mg/ml/EPI 0.01mg/ml 20ml IV ONE (11:15)
--- NOTE | 2017-04-15 14:50 | Consultation ---
Consult Note Consult Note REASON FOR CONSULTATION: Chronic nonhealing sacral decubitus wound , recommendation for antibiotics therapy REQUESTING PHYSICIAN: Ngozi Russ PA HPI: Juana Alcala is an 87-year-old female with PMH of chronic kidney disease, progressive dementia, diastolic CHF, paroxysmal atrial fibrillation, and prior retreatment for lymphoma and breast cancer , on remission at this time, who had coagulase-negative Staphylococcus infection due to a port infection and received a course of antibiotics for it , now presented to the wound care clinic with worsening sacral pressure wound which started in mid February, as a redness then rash and blister , later she developed wound at the rehab where she was at and has been receiving local wound care for it with out significant improvement . she had culture taken from the wound which is now deep all the way down to the sacrum and the culture grew proteus mirabilis, and klebsiella oxytoca , so I was consulted by the PA, for antibiotics treatment and further management. as of note patient is demented, and poor historian , couldn't provide any history , which was mainly obtained from the daughters at the bedside ROS: 14 Points of systems reviewed, were all negative except the one I mentioned above PMH: chronic kidney disease, progressive dementia, diastolic CHF, paroxysmal atrial fibrillation, and prior retreatment for lymphoma and breast cancer PAST SURGICAL HISTORY: Right shoulder surgery, herniorrhaphy, left breast biopsy, lymphoma biopsy, AV fistula of right arm, dialysis catheter, multiple ports, and pacemaker. MEDICATIONS: At home include amiodarone, aspirin, vitamin D3, donepezil, Femara, levothyroxine, Zocor, vitamin B complex. SOCIAL HISTORY: She lives with daughters at home , nondrinker, nonsmoker. PHYSICAL EXAMINATION: GENERAL: old female , cachectic, lying in bed, NAD . VITAL SIGNS: Temperature 98.4, pulse 77, respirations 20, and blood pressure 125/63. HEAD, EYES, EARS, NOSE, THROAT: Sclerae are nonicteric. Ocular motions intact in all directions. Oral mucosa slightly dry. NECK: No adenopathy or thyroid enlargement. LUNGS: Clear to auscultation , no wheezing or rhonchi . HEART: Regular rate and rhythm. no murmur. ABDOMEN: Soft , NT, ND, without organomegaly or masses. EXTREMITIES: No edema, cyanosis, or clubbing. AV fistula in the right arm. NEUROLOGIC: She is alert, responsive, disoriented. Cranial nerves are intact. No focal findings. SKIN: sacral decubitus wound stage iv , about 4x5 cm , and deep to the bone , with necrosis at the borders, foul smell and sacral bone is exposed LABORATORY DATA: not available Assessment/Plan ASSESSMENT: 1. sacral chronic decubitus wound with infection due to proteus mirabilis and klebsiella oxytoca 2. sacral osteomyelitis 3. possible sepsis 4. malnutrition RECOMMENDATIONS: 1. Agree on bone scan to confirm the diagnosis of osteomyelitis 2. recommend bone biopsy to be sent for culture to identify the exact bacteria 3. will likely need 6 weeks of antibiotics treatment , and may need skin graft 4. discussed with daughters and PA plan of care , and they understand that antibiotics alone may not close the wound completely but will help to accelerate the process 5. all questions were answered to the daughters thank you for the consult , will follow along with you Alexsander Shi M.D. Apr 15, 2017 14:50
[2017-04-15] MEDS ORDERED: Lidocaine 2% MPF 5ml Vial INJ ONE (16:45)
[2017-05-16] MEDS ORDERED: AMIODARONE HCL400 M1 ORAL (20:58)
[2017-05-16] MEDS ORDERED: LEVOTHYROXINE25 MCG ORAL (20:59)
[2017-05-16] MEDS ORDERED: ASPIR 8181 MG ORAL (20:59)
[2017-05-16] MEDS ORDERED: FEMARA2.5 MG ORAL (20:59)
== END 2017-04-15 | disposition home or self-care (01) ==
LOC: WCC 13:27
DX: L89.154 Pressure ulcer of sacral region, stage 4 (principal); M46.27 Osteomyelitis of vertebra, lumbosacral region; Z90.49 Acquired absence of other specified parts of digestive tract; M19.90 Unspecified osteoarthritis, unspecified site; I25.10 Atherosclerotic heart disease of native coronary artery without angina pectoris; Z85.72 Personal history of non-Hodgkin lymphomas; Z79.82 Long term (current) use of aspirin; Z88.6 Allergy status to analgesic agent
CPT/HCPCS: 11043; 11044; 11100; 87070; 87181; 87205

== ENCOUNTER 2017-04-22 13:02 | Outpatient (RCR) | payer MEDICARE, OTHER ==
--- NOTE | 2017-04-23 23:15 | Consultation ---
DATE OF CONSULTATION: 04/23/2017 INFECTIOUS DISEASE CONSULTATION CONSULTING PHYSICIAN: Debra Pizano M.D. ATTENDING PHYSICIAN: Ladarius Garza M.D. I was asked by Dr. Garza to see this patient. The patient was seen in the outpatient setting with [facility]. REASON FOR CONSULTATION: Sacral osteomyelitis, infected wound, and ulcer. HISTORY OF PRESENT ILLNESS: This is a very pleasant, 87-year-old female with history of dementia and is not a very good historian. The patient has a nonhealing sacral decubitus wound. The patient was seen by Dr. Alexsander Shi last week regarding this case and at that time, cultures have grown out Proteus and Klebsiella. A bone biopsy was done, which showed acute osteomyelitis of the sacral bone. The patient was initially on Rocephin I believe, not clear how long she received treatment for. Dr. Garza asked me to evaluate this patient to see if the patient needed antibiotics and for how long. As discussed earlier, the patient's culture grew out Proteus and Klebsiella and sensitivities were noted. Case was discussed with GRAHAM Melvin at the wound care clinic and also discussed with Dr. Shi and also Dr. Garza. The patient was seen today on 04/23/2017 for evaluation in the clinic. PAST MEDICAL HISTORY: The patient's past medical history includes history of following. The patient has a past medical history of chronic kidney disease, history of progressive dementia, history of CHF, history of paroxysmal atrial fibrillation, history of lymphoma and breast cancer and treatment it looks like. She has history of hyperlipidemia and also hypothyroidism in addition to dementia and CHF. PAST SURGICAL HISTORY: History of shoulder surgery in the right, hernia surgery, left breast biopsy, lymphoma biopsy, AV fistula in the right arm in the past, dialysis catheter, multiple ports, and pacemaker. MEDICATIONS: Medications in the past included amiodarone, aspirin, vitamin D3, donepezil, Femara, levothyroxine, Zocor, and vitamin B complex. However, she was given Rocephin also prior. ALLERGIES: Hydromorphone and morphine. SOCIAL HISTORY: Negative for smoking, alcohol, or drug abuse. FAMILY HISTORY: Noncontributory. No mention of exposure to tuberculosis or cancer. REVIEW OF SYSTEMS: CONSTITUTIONAL: The patient has generalized weakness and fatigue. She is a poor historian, but is alert. HEAD AND NECK: No obvious head pain or neck pain. CARDIAC: No obvious chest pain. GASTROINTESTINAL: No nausea, vomiting, or diarrhea. GENITOURINARY: She has no Ghotra. PULMONARY: No hemoptysis or secretions. SKIN: No rash. She has a sacral wound as discussed. NEUROLOGIC: No seizures. She has a history of dementia. She is a poor historian. In discussing with the patient's daughter at bedside, there is no mention of change in vision or change in hearing. Review of systems is otherwise limited in this patient. PHYSICAL EXAMINATION: GENERAL: Alert, responsive, no acute distress. VITAL SIGNS: The patient's temperature in the clinic was 98.3 degrees, pulse rate 76, respiratory rate 18, blood pressure 167/59, and saturation was not done. HEAD AND NECK: Oral exam, no oral thrush. Eye exam, no icterus. Normocephalic. No facial droop. No neck stiffness. Neck is supple. HEART: Regular. No gallop or murmur. Occasionally irregular. ABDOMEN: Soft. Positive bowel sounds. Nontender. No organomegaly. LUNGS: Clear bilaterally. No rhonchi or rales. SKIN: No rash. I did review her sacral wound and it was deep with some slough. Compared to previous pictures that I saw, it significantly improved with debridement, but it is a deep wound, it is stage IV sacral wound. No surrounding cellulitis noted. MUSCULOSKELETAL: No effusion. Legs are without cellulitis. PERIPHERAL VASCULAR: No evidence of cyanosis. GENITOURINARY: She has no Ghotra. No obvious CVA tenderness. LINES: Line sites, no obvious phlebitis. NEUROLOGIC: Generalized weakness and responsive. LABORATORY AND DIAGNOSTIC DATA: Laboratory data is as follows. White count 8.1, hemoglobin 9.2, and platelet count is 163. The patient's chemistry, her creatinine is 3.0. C-reactive protein is 20.1. Wound culture grew out Klebsiella and Proteus as discussed, both sensitive to ertapenem or Invanz. White count 8.1, hematocrit 27. Creatinine 3.0. ASSESSMENT AND PLAN: 1. The patient has Proteus and Klebsiella sacral wound infection/also infection with osteomyelitis. Bone biopsy was consistent with acute osteomyelitis. Bone biopsy is gold standard for diagnosis of osteomyelitis. In view of this, I would give the patient Invanz adjusting for elevated creatinine, probably 500 mg to 1 g a day, but possibly 500 mg because of elevated creatinine. We will discuss with pharmacy about dosing. The patient will need six weeks of total treatment. I think she has gotten some antibiotics prior and that could be included in the six weeks period. However, the Proteus was resistant to Rocephin, previously was sensitive to Rocephin, but in both cases, the Proteus from the biopsy showed sensitive to ertapenem as well as the wound culture, which grew out Proteus and Klebsiella that was sensitive to ertapenem. Again, the patient will need IV antibiotics for six weeks total and continue wound care per wound care clinic. There is a plan that the patient will get a wound VAC. The patient will need at least weekly labs including CBC, CMP, CRP, and sedimentation rate. I have discussed with Dr. Garza, who will set this up. The outpatient antibiotics, I believe they have already been ordered as ordered the laboratories. 2. Chronic kidney disease with elevated creatinine. 3. The patient has anemia. 4. The patient has history of dementia. 5. Congestive heart failure. 6. Paroxysmal atrial fibrillation. 7. History of lymphoma and breast cancer. 8. History of multiple orthopedic surgeries including hernia surgery, shoulder surgery, biopsy of the breast and lymphoma. She also has a history of arteriovenous fistula and dialysis catheter and pacemaker. Also, it is unclear to me if she has chronic hemodialysis and we will have to check on that. Again, we will adjust the antibiotic based on creatinine clearance. 9. Social history is negative. 10. Family history is noncontributory. 11. Allergies to hydromorphone and morphine. 12. Outside medications are noted. 13. Case discussed with RN in the clinic. 14. Case discussed with Dr. Garza. 15. Case discussed with Dr. Shi. 16. Case discussed with GRAHAM Melvin. 17. The patient to follow up in the wound care clinic to get local care and wound VAC. 18. Continue treatment per primary consultants. 19. We will followup. Thank you, Dr. Garza, for this consultation. Debra Pizano M.D. DR: RHONA JOB#: [id number] CC:
[2017-05-16] MEDS ORDERED: AMIODARONE HCL400 M1 ORAL (20:58)
[2017-05-16] MEDS ORDERED: LEVOTHYROXINE25 MCG ORAL (20:59)
[2017-05-16] MEDS ORDERED: ASPIR 8181 MG ORAL (20:59)
[2017-05-16] MEDS ORDERED: FEMARA2.5 MG ORAL (20:59)
== END 2017-05-13 | disposition home or self-care (01) ==
LOC: WCC 13:02
DX: L89.154 Pressure ulcer of sacral region, stage 4 (principal); M46.27 Osteomyelitis of vertebra, lumbosacral region; M19.90 Unspecified osteoarthritis, unspecified site; I51.9 Heart disease, unspecified; Z90.49 Acquired absence of other specified parts of digestive tract; Z85.72 Personal history of non-Hodgkin lymphomas; Z79.82 Long term (current) use of aspirin; Z88.8 Allergy status to other drugs, medicaments and biological substances
CPT/HCPCS: 11044; G0463

== ENCOUNTER 2017-05-16 21:01 | Inpatient (IN) | payer MEDICARE, OTHER ==
[~2017-05-16] VITALS: Ht 160 cm; Wt 54.4 kg
[2017-05-16 21:05] VITALS: BP 148/72
--- NOTE | 2017-05-16 21:19 | Emergency Room Report ---
History of Present Illness General Chief Complaint: Generalized Weakness Source: Family Member, EMS Present Illness HPI 87-year-old female brought in by EMS from home for "not acting normally." Patient cant sit up on her own last couple of days, "more weak than usual." Per daughter patient has history of dementia, was just discharged from [facility] 2 days ago after 2 week admission for sepsis, pneumonia and wound on lower back, with wound VAC attahced. Patient was supposed to have her dose of ertrapenem 500 mg today however nurse didn't bring it. Daughter states that patient has been declining last couple of days, states that she's not sitting up on her own. She endorses that she usually walks her mother with a walker however has been able to do so. Daughter states that wound was also subject to debridement last week as well. Daughter states that patient had brought pressure antibiotics for pneumonia, sepsis and osteomyelitis of the sacrum [facility]. Questionable history of known anemia, daughter states that was told it might be due to antibiotic Last hemoglobin measured at [facility] was over 8. HPI otherwise limited d/t language - patient speaks maori. Allergies: Coded Allergies: HYDROMORPHONE (Verified Allergy, Mild, 05/16/17) MORPHINE (Verified Allergy, Mild, 05/16/17) Patient History Past Medical History: other - See HPI Past Surgical History: other - Wound vac, sacral ulcer Pertinent Family History: unable to obtain Social History: Denies: smoking, alcohol use, drug use Now: No Immunizations: UTD Reviewed Nursing Documentation: PMH: Agreed, PSxH: Agreed Nursing Documentation-PM Past Medical History: No History, Except For Hx Cardiac Problems: Yes History Of Psychiatric Problem: Yes - Dementia Review of Systems All Other Systems: limited - language Physical Exam Vital Signs Date Time Temp Pulse Resp B/P (MAP) Pulse Ox O2 Delivery O2 Flow Rate FiO2 05/16/17 20:54 80 16 148/72 99 Room Air Sp02 EP Interpretation: reviewed, normal General Appearance: normal inspection, well appearing, no apparent distress, alert, non-toxic, other - Lying on side, smiling Head: normocephalic, atraumatic Eyes: bilateral eye PERRL, bilateral eye EOMI ENT: normal ENT inspection, hearing grossly normal, normal pharynx, no angioedema, normal voice, TMs + canals normal, uvula midline, moist mucus membranes Neck: normal inspection, full range of motion, supple, thyroid normal, no meningismus, no bony tend Respiratory: normal inspection, lungs clear, normal breath sounds, no rhonchi, no respiratory distress, no retraction, no accessory muscle use, no wheezing, speaking full sentences Cardiovascular #1: regular rate, rhythm, no edema, no JVD, normal capillary refill Gastrointestinal: normal inspection, normal bowel sounds, non tender, soft, no mass, no peritonitis, non-distended, no guarding, no hernia, no pulsatile mass Genitourinary: no CVA tenderness Musculoskeletal: normal inspection, back normal, normal range of motion, no calf tenderness, pelvis stable, Jared's Sign negative, other - Wound vac connected from lower back/sacral area. There is a clean base sacral ulcer. No pus. No erythema. Neurologic: normal inspection, alert, responsive, window shade ring sewer III-XII nml as tested, motor strength/tone normal, cerebellar normal, normal gait, speech normal Psychiatric: normal inspection, judgement/insight normal, mood/affect normal, no suicidal/homicidal ideation, no delusions Skin: normal inspection, normal color, no rash Lymphatic: normal inspection, no adenopathy Medical Decision Making Diagnostic Impression: Primary Impression: Episode of generalized weakness Additional Impressions: Altered mental status Qualified Codes: R41.82 - Altered mental status, unspecified CKD (chronic kidney disease) Qualified Codes: N18.9 - Chronic kidney disease, unspecified Anemia Qualified Codes: D64.9 - Anemia, unspecified Sacral ulcer Qualified Codes: L98.429 - Non-pressure chronic ulcer of back with unspecified severity ER Course Afebrile, no leukocytosis. Was given dose of ertrapenem that she is on currently for known osteo. Otherwise vitals stable, no sepsis. Hb 7.6, we'll transfuse 2 units of blood - likely source of acute weakness, ? AMS last couple of days. Endorse to Dr. Harrison for [facility] admission Daughter bedside agrees with admission. EKG Diagnostic Results Rate: normal Rhythm: NSR ST Segments: no acute changes ASA given to the pt in ED: No Rhythm Strip Diag. Results EP Interpretation: yes Rate: 68 Rhythm: NSR, no PVC's, no ectopy Last Vital Signs Date Time Temp Pulse Resp B/P (MAP) Pulse Ox O2 Delivery O2 Flow Rate FiO2 3/3/18 20:54 80 16 148/72 99 Room Air Status: improved Disposition: ADMITTED INPATIENT Condition: Serious ATIF DURAN M.D. May 16, 2017 21:19
[2017-05-16] MEDS ORDERED: Ertapenem 1 GM in NS 55 ML IV ONE (21:30)
[2017-05-16] MEDS ORDERED: Ertapenem (INVanz) 1gm Inj ONE (22:36)
[2017-05-16 23:11] LABS: HEMATOCRIT 22.6 % (37.0-47.0); HEMOGLOBIN 7.6 G/DL (12.0-16.0); MEAN CORPUSCULAR VOLUME 88 FL (80-99); PLATELET COUNT 99 K/UL (150-450); RED BLOOD COUNT 2.57 M/UL (4.20-5.40); RED CELL DISTRIBUTION WIDTH 16.2 % (11.6-14.8); WHITE BLOOD COUNT 6.3 K/UL (4.8-10.8)
[2017-05-16 23:27] LABS: ANION GAP 7 mmol/L (5-15); BLOOD UREA NITROGEN 51 mg/dL (7-18); CALCIUM 9.6 MG/DL (8.5-10.1); CARBON DIOXIDE 26 MMOL/L (21-32); CHLORIDE 104 MMOL/L (98-107); CREATININE 1.9 MG/DL (0.55-1.30); POTASSIUM 5.2 MMOL/L (3.5-5.1); SODIUM 137 MMOL/L (136-145)
[2017-05-16 23:53] LABS: ALANINE AMINOTRANSFERASE 26 U/L (12-78); ALBUMIN 2.5 G/DL (3.4-5.0); ALBUMIN/GLOBULIN RATIO 0.9 (1.0-2.7); ALKALINE PHOSPHATASE 109 U/L (46-116); ASPARTATE AMINO TRANSFERASE 33 U/L (15-37); BILIRUBIN,TOTAL 0.2 MG/DL (0.2-1.0); CKMB 5.2 NG/ML (0.0-3.6); CREATINE KINASE 218 U/L (26-308)
[2017-05-17 00:28] VITALS: BP 117/45
[2017-05-17 04:00] VITALS: BP 145/60
[2017-05-17] MEDS ORDERED: Ertapenem 0.5 GM in NS 55 ML IVPB SCH (07:30)
[2017-05-17 08:00] VITALS: BP 161/63
[2017-05-17] MEDS ORDERED: Nitroglycerin Subl 0.4mg tab SL PRN (08:30)
[2017-05-17] MEDS: Aspirin EC 81mg tab ORAL SCH (09:00)
[2017-05-17] MEDS ORDERED: Heparin 5000 units/ml inj SUBQ SCH (09:00)
[2017-05-17] MEDS: Amiodarone 200mg tab ORAL SCH (10:19)
[2017-05-17] MEDS: Donepezil 5mg Tab ORAL SCH (10:19)
[2017-05-17] MEDS: Vitamin D 1000 IU Tab ORAL SCH (11:37)
[2017-05-17] MEDS: Levothyroxine 25mcg tab ORAL SCH (11:37)
--- NOTE | 2017-05-17 11:42 | Diagnostic Imaging Report ---
Indication: Dyspnea Comparison: None A single view chest radiograph was obtained. Findings: Interstitial opacities noted. There is a pleural density at the left lung base which may be a small effusion or pleural thickening. There is a central line present the tip in the right atrium in good position. Heart size is normal. Bones are osteopenic. 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 Prominent pulmonary interstitium nonspecific. Central line in good position
[2017-05-17 12:00] VITALS: BP 147/63
[2017-05-17 15:31] LABS: HEMATOCRIT 25.5 % (37.0-47.0); HEMOGLOBIN 8.8 G/DL (12.0-16.0); MEAN CORPUSCULAR VOLUME 86 FL (80-99); PLATELET COUNT 88 K/UL (150-450); RED BLOOD COUNT 2.96 M/UL (4.20-5.40); RED CELL DISTRIBUTION WIDTH 14.9 % (11.6-14.8); WHITE BLOOD COUNT 5.1 K/UL (4.8-10.8)
[2017-05-17 16:00] VITALS: BP 142/88
--- NOTE | 2017-05-17 16:35 | Infectious Diseases Prog Note ---
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 (2) Sacral ulcer Assessment & Plan: with underlying osteomyelitis , will send wound culture and start meropenem and zyvox empiric coverage , she had recent surgical debridement at [facility] , will order ESR, and CRP, continue local wound care and off loading as per the wound care team, follow up with wound care clinic team after discharged (3) Episode of generalized weakness Assessment & Plan: suspect due to anemia from recent surgical debridement, S/P blood transfusion , recommend PT/OT eval Subjective Allergies: Coded Allergies: MORPHINE (Verified Allergy, Mild, 03/02/09) HYDROMORPHONE (Verified Allergy, Unknown, 01/13/11) Objective Vital Signs Last 24 Hour Vital Signs Date Time Temp Pulse Resp B/P (MAP) Pulse Ox O2 Delivery O2 Flow Rate FiO2 05/17/17 16:00 97.9 78 19 142/88 98 97.9 05/17/17 12:00 98.1 63 19 147/63 96 98.1 05/17/17 08:00 97.5 89 19 161/63 93 97.5 05/17/17 04:00 97.3 74 21 145/60 94 Room Air 97.3 05/17/17 03:35 76 148/72 05/17/17 00:28 97.8 76 16 117/45 100 Room Air 97.8 05/16/17 21:05 97.6 88 16 148/72 99 Room Air 97.6 05/16/17 20:54 80 16 148/72 99 Room Air Height (Feet): 5 Height (Inches): 3.00 Weight (Pounds): 120 Microbiology Date/Time Source Procedure Growth Status 05/16/17 00:30 Nasal Nares Influenza Types A,B Antigen (DARRIAN) - Final Complete Laboratory Tests Test 05/16/17 22:00 05/17/17 14:20 05/17/17 14:55 White Blood Count 6.3 K/UL (4.8-10.8) 5.1 K/UL (4.8-10.8) Red Blood Count 2.57 M/UL (4.20-5.40) L 2.96 M/UL (4.20-5.40) L Hemoglobin 7.6 G/DL (12.0-16.0) L 8.8 G/DL (12.0-16.0) L Hematocrit 22.6 % (37.0-47.0) L 25.5 % (37.0-47.0) L Mean Corpuscular Volume 88 FL (80-99) 86 FL (80-99) Mean Corpuscular Hemoglobin 29.7 PG (27.0-31.0) 29.8 PG (27.0-31.0) Mean Corpuscular Hemoglobin Concent 33.8 G/DL (32.0-36.0) 34.5 G/DL (32.0-36.0) Red Cell Distribution Width 16.2 % (11.6-14.8) H 14.9 % (11.6-14.8) H Platelet Count 99 K/UL (150-450) L 88 K/UL (150-450) L Mean Platelet Volume 6.4 FL (6.5-10.1) L 6.1 FL (6.5-10.1) L Neutrophils (%) (Auto) % (45.0-75.0) % (45.0-75.0) Lymphocytes (%) (Auto) % (20.0-45.0) % (20.0-45.0) Monocytes (%) (Auto) % (1.0-10.0) % (1.0-10.0) Eosinophils (%) (Auto) % (0.0-3.0) % (0.0-3.0) Basophils (%) (Auto) % (0.0-2.0) % (0.0-2.0) Differential Total Cells Counted 100 Neutrophils % (Manual) 68 % (45-75) Pending Lymphocytes % (Manual) 23 % (20-45) Pending Monocytes % (Manual) 4 % (1-10) Eosinophils % (Manual) 1 % (0-3) Basophils % (Manual) 1 % (0-2) Band Neutrophils 3 % (0-8) Platelet Estimate Decreased L Pending Platelet Morphology Normal Pending Anisocytosis 1+ Sodium Level 137 MMOL/L (136-145) Potassium Level 5.2 MMOL/L (3.5-5.1) H Chloride Level 104 MMOL/L (98-107) Carbon Dioxide Level 26 MMOL/L (21-32) Anion Gap 7 mmol/L (5-15) Blood Urea Nitrogen 51 mg/dL (7-18) H Creatinine 1.9 MG/DL (0.55-1.30) H Estimat Glomerular Filtration Rate mL/min (>60) Glucose Level 104 MG/DL (74-106) Lactic Acid Level 0.60 mmol/L (0.66-2.22) L Calcium Level 9.6 MG/DL (8.5-10.1) Total Bilirubin 0.2 MG/DL (0.2-1.0) Aspartate Amino Transf (AST/SGOT) 33 U/L (15-37) Alanine Aminotransferase (ALT/SGPT) 26 U/L (12-78) Alkaline Phosphatase 109 U/L (46-116) Total Creatine Kinase 218 U/L (26-308) Creatine Kinase MB 5.2 NG/ML (0.0-3.6) H Creatine Kinase MB Relative Index 2.3 Troponin I 0.000 ng/mL (0.000-0.056) Total Protein 5.3 G/DL (6.4-8.2) L Albumin 2.5 G/DL (3.4-5.0) L Globulin 2.8 g/dL Albumin/Globulin Ratio 0.9 (1.0-2.7) L Stool Occult Blood Pending Current Medications Medications (Trade) Dose Ordered Sig/Dustin Route PRN Reason Start Time Stop Time Status Last Admin Dose Admin Acetaminophen (Tylenol) 650 mg EVERY 4 HOURS PRN ORAL PAIN/FEVER 05/17/17 02:15 06/16/17 02:14 Acetaminophen (Tylenol) 650 mg Q4H PRN ORAL fever>100.5 05/17/17 08:30 06/16/17 08:29 Amiodarone HCl (Cordarone) 100 mg DAILY ORAL 05/17/17 09:00 06/16/17 08:59 05/17/17 10:19 Aspirin (Ecotrin) 81 mg DAILY ORAL 05/17/17 09:00 06/16/17 08:59 Chlorhexidine Gluconate (Coco-Hex 2%) 1 applic DAILY TOPIC 05/17/17 20:00 06/16/17 19:59 Dextrose (Dextrose 50%) STAT PRN IV Hypoglycemia 05/17/17 08:30 06/16/17 08:29 Donepezil HCl (Aricept) 5 mg DAILY ORAL 05/17/17 09:00 06/16/17 08:59 05/17/17 10:19 Epoetin Dane (Procrit (for ESRD on dialysis)) 7,000 units THU-THU-THU SUBQ 05/18/17 21:00 06/17/17 20:59 Ertapenem 0.5 gm/ Sodium Chloride 55 ml @ 110 mls/hr Q24H IVPB 05/17/17 07:30 05/22/17 07:29 UNV Heparin Sodium (Porcine) (Heparin 5000 units/ml) 5,000 units EVERY 12 HOURS SUBQ 05/17/17 09:00 06/16/17 08:59 UNV Letrozole (Femara) 2.5 mg DAILY ORAL 05/17/17 09:00 05/22/17 08:59 05/17/17 11:38 Levothyroxine Sodium (Synthroid) 25 mcg ACBREAKFAST ORAL 05/17/17 11:30 06/16/17 11:29 05/17/17 11:37 Nitroglycerin (Ntg) 0.4 mg Q5M X 3 DOSES PRN SL Prn Chest Pain 05/17/17 08:30 06/16/17 08:29 Ondansetron HCl (Zofran) 4 mg Q6H PRN IVP Nausea & Vomiting 05/17/17 08:30 06/16/17 08:29 Polyethylene Glycol (Miralax) 17 gm HSPRN PRN ORAL Constipation 05/17/17 21:00 06/16/17 20:59 Sodium Chloride 1,000 ml @ 50 mls/hr Q20H IV 05/17/17 02:15 06/16/17 02:14 05/17/17 03:40 Vitamin B Complex (Vitamin B Complex) 1 ea DAILY ORAL 05/17/17 09:00 06/16/17 08:59 05/17/17 11:36 Vitamin D (Vitamin D) 2,000 intlu DAILY ORAL 05/17/17 09:00 06/16/17 08:59 05/17/17 11:37 Alexsander Shi M.D. May 17, 2017 16:35
--- NOTE | 2017-05-17 18:07 | History & Physical ---
History and Physical History & Physicial H&P dictated#[id number] HEIDY SANDOVAL May 17, 2017 18:06
[2017-05-17 20:00] VITALS: BP 141/81
[2017-05-17] MEDS ORDERED: Dyna-Hex 2% Top Sol 2oz TOPIC SCH (20:00)
[2017-05-17] MEDS ORDERED: Miralax 17gm pkt ORAL PRN (21:00)
[2017-05-17] MEDS: Meropenem 500 MG in NS 55 ML IVPB SCH (22:30)
[2017-05-18] VITALS (7 sets, daily range): BP systolic 122–166; BP diastolic 66–95
[2017-05-18 03:14] LABS: APPEARANCE,URINE CLEAR; BILIRUBIN, URINE NEGATIVE (NEGATIVE); COLOR,URINE PALE YELLOW; GLUCOSE, URINE (UA) NEGATIVE (NEGATIVE); KETONES,URINE NEGATIVE (NEGATIVE); LEUKOCYTE ESTERASE ,URINE 1+ (NEGATIVE); NITRITE,URINE NEGATIVE (NEGATIVE); PH,URINE 6 (4.5-8.0); PROTEIN,URINE 2+ (NEGATIVE); UROBILINOGEN,URINE NORMAL MG/DL (0.0-1.0)
[2017-05-18] MEDS: Meropenem 500 MG in NS 55 ML IVPB SCH ×3 (05:47→21:32)
[2017-05-18] MEDS: Levothyroxine 25mcg tab ORAL SCH (06:06)
[2017-05-18 08:11] LABS: HEMATOCRIT 24.7 % (37.0-47.0); HEMOGLOBIN 8.2 G/DL (12.0-16.0); MEAN CORPUSCULAR VOLUME 88 FL (80-99); PLATELET COUNT 83 K/UL (150-450); WHITE BLOOD COUNT 6.6 K/UL (4.8-10.8)
[2017-05-18 08:39] LABS: ALANINE AMINOTRANSFERASE 24 U/L (12-78); ALBUMIN 2.3 G/DL (3.4-5.0); ALBUMIN/GLOBULIN RATIO 0.9 (1.0-2.7); ALKALINE PHOSPHATASE 95 U/L (46-116); ANION GAP 8 mmol/L (5-15); BILIRUBIN,TOTAL 0.3 MG/DL (0.2-1.0); BLOOD UREA NITROGEN 47 mg/dL (7-18); CALCIUM 9.5 MG/DL (8.5-10.1); CARBON DIOXIDE 24 MMOL/L (21-32); CHLORIDE 106 MMOL/L (98-107); CREATININE 1.9 MG/DL (0.55-1.30); POTASSIUM 4.9 MMOL/L (3.5-5.1); SODIUM 138 MMOL/L (136-145)
[2017-05-18] MEDS: Amiodarone 200mg tab ORAL SCH (08:51)
[2017-05-18] MEDS: Aspirin EC 81mg tab ORAL SCH (08:51)
[2017-05-18] MEDS: Vitamin D 1000 IU Tab ORAL SCH (08:57)
[2017-05-18] MEDS: Donepezil 5mg Tab ORAL SCH (08:59)
[2017-05-18 09:04] LABS: ASPARTATE AMINO TRANSFERASE 27 U/L (15-37)
--- NOTE | 2017-05-18 13:38 | Infectious Diseases Prog Note ---
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 (2) Sacral ulcer Assessment & Plan: with underlying osteomyelitis , await wound culture and continue meropenem with zyvox empiric coverage , she had recent surgical debridement at [facility] , continue local wound care and off loading as per the wound care team, follow up with wound care clinic team after discharged (3) Episode of generalized weakness Assessment & Plan: suspect due to anemia from recent surgical debridement, S/P blood transfusion , recommend PT/OT eval Subjective Constitutional: Reports: fatigue HEENT: Reports: no symptoms Respiratory: Reports: no symptoms Breasts: Reports: no symptoms Cardiovascular: Reports: no symptoms Gastrointestinal/Abdominal: Reports: no symptoms Genitourinary: Reports: no symptoms Neurologic: Reports: no symptoms, weakness Psychiatric: Reports: anxiety Skin: Reports: ulcer - sacral pressure wound stage IV, with red borders Endocrine: Reports: no symptoms Hematologic: Reports: no symptoms Allergies: Coded Allergies: MORPHINE (Verified Allergy, Mild, 03/02/09) HYDROMORPHONE (Verified Allergy, Unknown, 01/13/11) Objective Vital Signs Last 24 Hour Vital Signs Date Time Temp Pulse Resp B/P (MAP) Pulse Ox O2 Delivery O2 Flow Rate FiO2 05/18/17 08:00 97.3 68 20 143/66 96 97.3 05/18/17 04:54 71 124/95 93 Room Air 05/18/17 04:13 98.2 81 18 166/75 90 98.2 05/18/17 00:35 97.9 85 20 122/94 96 Room Air 97.9 05/17/17 20:00 97.3 81 20 141/81 98 97.3 05/17/17 20:00 Room Air 05/17/17 16:00 Room Air 05/17/17 16:00 97.9 78 19 142/88 98 97.9 Height (Feet): 5 Height (Inches): 3.00 Weight (Pounds): 120 General Appearance: WD/WN, no acute distress, cachetic HEENT: normocephalic, atraumatic, anicteric, mucous membranes moist Respiratory/Chest: chest wall non-tender, lungs clear, normal breath sounds, no respiratory distress, no accessory muscle use, decreased breath sounds Cardiovascular: normal peripheral pulses, normal rate, regular rhythm, no gallop/murmur, no JVD Abdomen: normal bowel sounds, soft, non tender, no organomegaly, non distended , no mass, no scars Extremities: no cyanosis, no clubbing Skin: no rash, no lesions, ulcers - stage IV pressure wound with red skin , no drainage or pus, no foul smell Neurologic/Psychiatric: alert, responsive Lymphatic: no neck adenopathy, no groin adenopathy Microbiology Date/Time Source Procedure Growth Status 05/16/17 22:00 Blood Blood Culture - Preliminary NO GROWTH AFTER 24 HOURS Resulted 05/16/17 21:45 Blood Blood Culture - Preliminary NO GROWTH AFTER 24 HOURS Resulted 05/16/17 00:30 Nasal Nares Influenza Types A,B Antigen (DARRIAN) - Final Complete Laboratory Tests Test 05/17/17 14:20 05/17/17 14:55 05/18/17 01:55 05/18/17 05:00 Stool Occult Blood Negative (NEGATIVE) White Blood Count 5.1 K/UL (4.8-10.8) 6.6 K/UL (4.8-10.8) Red Blood Count 2.96 M/UL (4.20-5.40) L 2.80 M/UL (4.20-5.40) L Hemoglobin 8.8 G/DL (12.0-16.0) L 8.2 G/DL (12.0-16.0) L Hematocrit 25.5 % (37.0-47.0) L 24.7 % (37.0-47.0) L Mean Corpuscular Volume 86 FL (80-99) 88 FL (80-99) Mean Corpuscular Hemoglobin 29.8 PG (27.0-31.0) 29.5 PG (27.0-31.0) Mean Corpuscular Hemoglobin Concent 34.5 G/DL (32.0-36.0) 33.4 G/DL (32.0-36.0) Red Cell Distribution Width 14.9 % (11.6-14.8) H 15.0 % (11.6-14.8) H Platelet Count 88 K/UL (150-450) L 83 K/UL (150-450) L Mean Platelet Volume 6.1 FL (6.5-10.1) L 6.2 FL (6.5-10.1) L Neutrophils (%) (Auto) % (45.0-75.0) % (45.0-75.0) Lymphocytes (%) (Auto) % (20.0-45.0) % (20.0-45.0) Monocytes (%) (Auto) % (1.0-10.0) % (1.0-10.0) Eosinophils (%) (Auto) % (0.0-3.0) % (0.0-3.0) Basophils (%) (Auto) % (0.0-2.0) % (0.0-2.0) Differential Total Cells Counted 100 100 Neutrophils % (Manual) 58 % (45-75) 62 % (45-75) Lymphocytes % (Manual) 39 % (20-45) 34 % (20-45) Monocytes % (Manual) 1 % (1-10) 2 % (1-10) Eosinophils % (Manual) 2 % (0-3) 2 % (0-3) Basophils % (Manual) 0 % (0-2) 0 % (0-2) Band Neutrophils 0 % (0-8) 0 % (0-8) Smudge Cells Occasional Platelet Estimate Decreased L Decreased L Platelet Morphology Normal Normal Hypochromasia 2+ Anisocytosis 1+ 1+ Ovalocytes Occasional Erythrocyte Sedimentation Rate 45 MM/HR (0-42) H C-Reactive Protein, Quantitative 11.7 mg/dL (0.00-0.90) H Urine Color Pale yellow Urine Appearance Clear Urine pH 6 (4.5-8.0) Urine Specific [place] 1.015 (1.005-1.035) Urine Protein 2+ (NEGATIVE) H Urine Glucose (UA) Negative (NEGATIVE) Urine Ketones Negative (NEGATIVE) Urine Occult Blood 2+ (NEGATIVE) H Urine Nitrite Negative (NEGATIVE) Urine Bilirubin Negative (NEGATIVE) Urine Urobilinogen Normal MG/DL (0.0-1.0) Urine Leukocyte Esterase 1+ (NEGATIVE) H Urine RBC 2-4 /HPF (0 - 2) H Urine WBC 0-2 /HPF (0 - 2) Urine Squamous Epithelial Cells Few /LPF (NONE/OCC) Urine Bacteria Few /HPF (NONE) Sodium Level 138 MMOL/L (136-145) Potassium Level 4.9 MMOL/L (3.5-5.1) Chloride Level 106 MMOL/L (98-107) Carbon Dioxide Level 24 MMOL/L (21-32) Anion Gap 8 mmol/L (5-15) Blood Urea Nitrogen 47 mg/dL (7-18) H Creatinine 1.9 MG/DL (0.55-1.30) H Estimat Glomerular Filtration Rate mL/min (>60) Glucose Level 83 MG/DL (74-106) Calcium Level 9.5 MG/DL (8.5-10.1) Total Bilirubin 0.3 MG/DL (0.2-1.0) Aspartate Amino Transf (AST/SGOT) 27 U/L (15-37) Alanine Aminotransferase (ALT/SGPT) 24 U/L (12-78) Alkaline Phosphatase 95 U/L (46-116) Total Protein 4.9 G/DL (6.4-8.2) L Albumin 2.3 G/DL (3.4-5.0) L Globulin 2.6 g/dL Albumin/Globulin Ratio 0.9 (1.0-2.7) L Current Medications Medications (Trade) Dose Ordered Sig/Dustin Route PRN Reason Start Time Stop Time Status Last Admin Dose Admin Acetaminophen (Tylenol) 650 mg EVERY 4 HOURS PRN ORAL PAIN/FEVER 05/17/17 02:15 06/16/17 02:14 Acetaminophen (Tylenol) 650 mg Q4H PRN ORAL fever>100.5 05/17/17 08:30 06/16/17 08:29 Amiodarone HCl (Cordarone) 100 mg DAILY ORAL 05/17/17 09:00 06/16/17 08:59 05/18/17 08:51 Aspirin (Ecotrin) 81 mg DAILY ORAL 05/17/17 09:00 06/16/17 08:59 05/18/17 08:51 Chlorhexidine Gluconate (Coco-Hex 2%) 1 applic DAILY@1999 TOPIC 05/18/17 20:00 06/17/17 19:59 Dextrose (Dextrose 50%) STAT PRN IV Hypoglycemia 05/17/17 08:30 06/16/17 08:29 Donepezil HCl (Aricept) 5 mg DAILY ORAL 05/17/17 09:00 06/16/17 08:59 05/17/17 10:19 Epoetin Dane (Procrit (for ESRD on dialysis)) 7,000 units THU-THU-THU SUBQ 05/18/17 21:00 06/17/17 20:59 Heparin Sodium (Porcine) (Heparin 5000 units/ml) 5,000 units EVERY 12 HOURS SUBQ 05/17/17 09:00 06/16/17 08:59 UNV Letrozole (Femara) 2.5 mg DAILY ORAL 05/17/17 09:00 05/22/17 08:59 05/18/17 08:50 Levothyroxine Sodium (Synthroid) 25 mcg ACBREAKFAST ORAL 05/17/17 11:30 06/16/17 11:29 05/18/17 06:06 Linezolid 300 ml @ 300 mls/hr Q12HR@0600,1800 IVPB 05/17/17 18:00 05/24/17 17:59 05/18/17 06:26 Meropenem 500 mg/ Sodium Chloride 55 ml @ 110 mls/hr EVERY 8 HOURS IVPB 05/17/17 22:00 05/22/17 21:59 05/18/17 13:11 Nitroglycerin (Ntg) 0.4 mg Q5M X 3 DOSES PRN SL Prn Chest Pain 05/17/17 08:30 06/16/17 08:29 Ondansetron HCl (Zofran) 4 mg Q6H PRN IVP Nausea & Vomiting 05/17/17 08:30 06/16/17 08:29 Polyethylene Glycol (Miralax) 17 gm HSPRN PRN ORAL Constipation 05/17/17 21:00 06/16/17 20:59 Vitamin B Complex (Vitamin B Complex) 1 ea DAILY ORAL 05/17/17 09:00 06/16/17 08:59 05/18/17 08:51 Vitamin D (Vitamin D) 2,000 intlu DAILY ORAL 05/17/17 09:00 06/16/17 08:59 05/18/17 08:57 Alexsander Shi M.D. May 18, 2017 13:38
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
[2017-05-18] MEDS ORDERED: Epogen (for ESRD on dialysis) SUBQ SCH (21:00)
--- NOTE | 2017-05-18 21:06 | Nephrology Progress Note ---
Assessment/Plan Plan 1) Sacral Decubitus ulcer + infection on wound vac 2) Dementia 3) Euvolemic Plan: Continue IV ATB's Subjective Subjective No c/p or sob, she is confused Objective Objective Last 24 Hour Vital Signs Date Time Temp Pulse Resp B/P (MAP) Pulse Ox O2 Delivery O2 Flow Rate FiO2 05/18/17 20:34 97.9 87 18 133/70 96 97.9 05/18/17 16:00 96.6 62 20 124/67 96 96.6 05/18/17 12:01 Room Air 05/18/17 12:00 96.3 67 20 139/73 100 96.3 05/18/17 08:00 97.3 68 20 143/66 96 97.3 05/18/17 04:54 71 124/95 93 Room Air 05/18/17 04:13 98.2 81 18 166/75 90 98.2 05/18/17 00:35 97.9 85 20 122/94 96 Room Air 97.9 Intake and Output 05/17/17 05/18/17 19:00 07:00 Intake Total 1040 ml 55 ml Output Total 0 ml Balance 1040 ml 55 ml Intake Oral 240 ml IV Total 800 ml 55 ml Output Drainage Total 0 ml # Voids 2 2 # Bowel Movements 2 1 Laboratory Tests 05/18/17 01:55: Urine Color Pale yellow, Urine Appearance Clear, Urine pH 6, Urine Specific [place] 1.015, Urine Protein 2+H, Urine Glucose (UA) Negative, Urine Ketones Negative, Urine Occult Blood 2+H, Urine Nitrite Negative, Urine Bilirubin Negative, Urine Urobilinogen Normal, Urine Leukocyte Esterase 1+H, Urine RBC 2- 4H, Urine WBC 0-2, Urine Squamous Epithelial Cells Few, Urine Bacteria Few 05/18/17 05:00: White Blood Count 6.6, Red Blood Count 2.80L, Hemoglobin 8.2L, Hematocrit 24.7L , Mean Corpuscular Volume 88, Mean Corpuscular Hemoglobin 29.5, Mean Corpuscular Hemoglobin Concent 33.4, Red Cell Distribution Width 15.0H, Platelet Count 83L, Mean Platelet Volume 6.2L, Neutrophils (%) (Auto) , Lymphocytes (%) (Auto) , Monocytes (%) (Auto) , Eosinophils (%) (Auto) , Basophils (%) (Auto) , Differential Total Cells Counted 100, Neutrophils % ( Manual) 62, Lymphocytes % (Manual) 34, Monocytes % (Manual) 2, Eosinophils % ( Manual) 2, Basophils % (Manual) 0, Band Neutrophils 0, Platelet Estimate DecreasedL, Platelet Morphology Normal, Anisocytosis 1+, Sodium Level 138, Potassium Level 4.9, Chloride Level 106, Carbon Dioxide Level 24, Anion Gap 8, Blood Urea Nitrogen 47H, Creatinine 1.9H, Estimat Glomerular Filtration Rate , Glucose Level 83, Calcium Level 9.5, Total Bilirubin 0.3, Aspartate Amino Transf (AST/SGOT) 27, Alanine Aminotransferase (ALT/SGPT) 24, Alkaline Phosphatase 95, Total Protein 4.9L, Albumin 2.3L, Globulin 2.6, Albumin/ Globulin Ratio 0.9L Height (Feet): 5 Height (Inches): 3.00 Weight (Pounds): 120 General Appearance: WD/WN, no apparent distress, alert EENT: PERRL/EOMI Neck: non-tender, normal alignment Cardiovascular: normal rate, regular rhythm Respiratory/Chest: chest wall non-tender, lungs clear 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
[2017-05-18] MEDS: Dyna-Hex 2% Top Sol 2oz TOPIC SCH (21:31)
[2017-05-19] VITALS: BP 153/62
[2017-05-19 04:00] VITALS: BP 141/57
[2017-05-19] MEDS: Meropenem 500 MG in NS 55 ML IVPB SCH (05:02)
[2017-05-19] MEDS: Levothyroxine 25mcg tab ORAL SCH (05:32)
[2017-05-19 08:00] VITALS: BP 156/60
[2017-05-19] MEDS: Donepezil 5mg Tab ORAL SCH (08:41)
[2017-05-19] MEDS: Amiodarone 200mg tab ORAL SCH (08:41)
[2017-05-19] MEDS: Vitamin D 1000 IU Tab ORAL SCH (08:41)
[2017-05-19] MEDS: Aspirin EC 81mg tab ORAL SCH (08:48)
--- NOTE | 2017-05-19 10:30 | History and Physical Report ---
DATE OF ADMISSION: 05/16/2017 REASON OF ADMISSION: Extreme weakness. HISTORY OF PRESENT ILLNESS: This is a very pleasant 87-year-old [place] lady that does not speak Azeri, has had multiple medical problems including sacral decubital ulcer with underlying osteomyelitis for which she has been at [facility] about a couple of weeks ago and has had some debridement of the wound with a wound VAC put in place, also has been receiving IV antibiotics, has been brought to the emergency room of [facility] [place] and subsequently has been admitted. Because of extreme weakness, she has not been able to sit up and she has some more altered mental status. Her serum creatinine has been in the range of 1.9 mg/dL. By looking through the records from [facility], it seems that in 08/2016, a renal ultrasound showed bilateral small kidneys about 7 centimeter and apparently she also has some underlying dementia and because of the barrier of the language, it is very hard to assess how she is feeling at this point. Nevertheless, it was decided to be admitted for further evaluation. Her white counts was not that elevated and she does not seem to have any fever at this point and I am not sure how much urine she is making at this point. PAST MEDICAL HISTORY: Significant for chronic kidney disease, possibly advanced, I am suspecting possibility of a stage 4 to 5 most likely hypertensive heart disease, atrial fibrillation, previous breast cancer non-Hodgkin lymphoma, previous pancreatitis, primary osteoarthritis of the left shoulder, essential hypertension, sacral decubitus ulcer with underlying osteomyelitis, gout, macular degeneration, hypercholesterolemia, pseudogout of the left knee, previous syncope, and also hypothyroidism. PAST SURGICAL HISTORY: Cataract surgery, history of breast biopsy status post cholecystectomy, status post umbilical hernia repair, and status post lysis of adhesions intra-abdominally. MEDICATIONS: Prior to admission has been amiodarone 100 mg p.o. daily, aspirin 81 mg p.o. daily, vitamin D3 1000 units p.o. daily, Aricept 5 mg p.o. daily, Letrozole 2.5 mg p.o. daily, Synthroid 0.025 mg p.o. daily, simvastatin 20 mg p.o. daily, and Nephro-Celeste one tablet p.o. daily. Also, she has been on ertapenem 500 mg IV q.24 h. ALLERGIES: Dilaudid, morphine and Levaquin. SOCIAL HISTORY: She is a . No smoking. No drinking. No drugs. REVIEW OF SYSTEMS: Impossible since she is not able to give me a very fruitful history. PHYSICAL EXAMINATION: GENERAL: She does not seem to be in much acute distress, sitting up in the bed. VITAL SIGNS: Blood pressure is 142/88, pulse of 78, respiration 19 and temperature 97.9 degrees. HEENT: Head is atraumatic. Eyes, pupils and reactive to light. No evidence of papilledema. Ear canals are clear. Tympanic membranes are intact. Nose, nares are patent without any nasal discharge. Throat without any inflammation or exudate. NECK: Supple. Jugular venous distention is within normal limits. No cervical adenopathies. No thyromegaly. HEART: Regular rhythm. No gallop. LUNGS: Decreased air excursion bilaterally. ABDOMEN: Supple. Bowel sounds positive. No hepatosplenomegaly. EXTREMITIES: Lower extremity shows no cyanosis or clubbing. No pedal edema. NEUROLOGICAL: Cranial nerves are grossly intact. She is disoriented apparently x3. No focal neurological deficits present. LABORATORY AND DIAGNOSTIC DATA: Laboratory data is showing sodium 137, potassium 5.2, chloride 104, carbon dioxide 26, BUN is 51, and creatinine 1.9. Lactic acid 0.6. Albumin is 2.5. WBC is 5.1, hemoglobin is 8.8, hematocrit 25.5, and platelets of 88. No urinalysis present. IMPRESSION: 1. Evidence of sacral decubiti ulcer with underlying osteomyelitis. 2. She has underlying chronic kidney disease, I am suspecting a very advanced chronic kidney disease, maybe stage 4 to 5, even though serum creatinine is about 1.9, but she does not have much muscle mass and she has bilateral small kidneys. She might have approached end-stage renal disease. 3. Some of the weakness and tiredness might be related to the underlying chronic kidney disease and also to the anemia. 4. She has some degree of anemia, which is most likely due to underlying chronic kidney disease. PLAN: We are going to admit her. An Infectious Disease consult is in order. We will continue with ertapenem at this point and possibly doing some cultures and down the road she might need to have a renal scan to evaluate the GFR and we will go from there. Kenyonmagen Maldonado M.D. DR: DEREK JOB#: [id number] CC:
--- NOTE | 2017-05-19 10:45 | Consultation ---
DATE OF CONSULTATION: 05/17/2017 INFECTIOUS DISEASE CONSULTATION CONSULTING PHYSICIAN: Alexsander Shi M.D. REQUESTING PHYSICIAN: Kenyon Maldonado M.D. REASON FOR CONSULTATION: Sacral osteomyelitis with chronic pressure wound and recent Enterococcus faecium bacteremia, recommendation for antibiotics treatment and further management. HISTORY OF PRESENT ILLNESS: The patient is an 87-year-old female, who lives at home with daughter, was brought in to [facility] via paramedics for not acting normally. The patient was more lethargic and confused for the last couple of days and could not sit up on her own. As per daughter, the patient had dementia. She was recently discharged from [facility] two days prior after she had two weeks of treatment for sepsis due to Enterococcus faecium, vancomycin resistant. The patient had blood culture grew vancomycin-resistant Enterococcus faecium on 04/29 and she was treated with Zyvox for two weeks and underwent sacral wound debridement by Surgery. The patient cleared her bacteremia on 05/05 and she was discharged home on IV Invanz to complete her course of treatment for 6 weeks total. Unfortunately, she was getting weaker and lethargic for the last couple of days and this was noticed by her daughter, so she was brought in to the ED at [facility] for further evaluation and treatment So, Infectious Disease consultation was requested for further evaluation and management of her sacral osteo and possible sepsis. As of note, the patient is poor historian, cannot provide any history. History was mainly obtained from the medical record and daughter at the bedside. PAST MEDICAL HISTORY: Significant for dementia, chronic sacral pressure wound, and sacral osteomyelitis, status post surgical debridement and wound VAC placement. PAST SURGICAL HISTORY: She had I and D of the sacral pressure wound at [facility] last month. MEDICATIONS: The patient was on Invanz at [facility] when she got discharged. For the rest of her medications, please refer to MAR. ALLERGIES: She is allergic to hydromorphone and morphine. SOCIAL HISTORY: The patient lives at home with daughter. No recent drugs, tobacco, or alcohol. FAMILY HISTORY: Unable to obtain. REVIEW OF SYSTEMS: Unable to obtain. The patient cannot provide any history. PHYSICAL EXAMINATION: GENERAL: Elderly female, lying in bed, lethargic, responsive, not in acute distress. VITAL SIGNS: Temperature 97.9 degrees, pulse 78, respirations 19, blood pressure 142/88, and pulse oximetry 98% on room air. HEENT: Normocephalic and atraumatic. Pale sclerae. Dry oral mucosa. No exudate or thrush. NECK: Supple. No lymphadenopathy. CARDIOVASCULAR: Regular rate and rhythm. No murmur. No gallop. LUNGS: Clear bilaterally. Diminished breathing sounds at the bases. No wheezing. No rhonchi. ABDOMEN: Soft, nontender, and nondistended. Positive bowel sounds. No hepatosplenomegaly. No ascites. EXTREMITIES: No edema. No cyanosis. Onychomycosis on both sides. SKIN: She had sacral pressure wound stage IV deep down to the bone with redness and erythema surrounding the wound and warmth. No significant drainage or pus coming out of the sacral wound area. LABORATORY AND DIAGNOSTIC DATA: Labs showed white count of 5.1, hemoglobin of 8.8, and platelet count of 88. BUN of 51 and creatinine of 1.9. AST of 33 and ALT of 26. Urinalysis showed +1 leukocyte esterase, WBC 0-2, and few bacteria. Microbiology, influenza A and B screening were both negative. Imaging, chest x-ray showed chronic pleural disease at the left lung base, prominent pulmonary interstitium, nonspecific and central line in good position. ASSESSMENT AND RECOMMENDATION: 1. Sepsis with Enterococcus faecium, vancomycin resistant, was on Zyvox at [facility]. We will resume Zyvox for now and repeat two sets of blood cultures to confirm clearance. If blood cultures do not grow anything, we will stop Zyvox since she already received two weeks of treatment, with echocardiogram did not show any evidence of vegetation at [facility]. 2. Sacral ulcer stage IV with osteomyelitis. We will send wound culture and start the patient on meropenem and Zyvox empiric coverage. The patient had recent surgical debridement of her sacral wound at [facility]. We will order sedimentation rate and C-reactive protein. No need for surgical evaluation at this point. Discussed with the daughter. 3. Episode of generalized weakness, suspect due to anemia, status post blood transfusion, improving. Continue supportive care and recommend PT/OT evaluation. Thank you for the consultation. Infectious Disease will continue to follow. Alexsander Shi M.D. DR: COURTNEY JOB#: [id number] CC: ARIELLA
[2017-05-19 12:00] VITALS: BP 155/66
--- NOTE | 2017-05-19 14:36 | Infectious Diseases Prog Note ---
Assessment/Plan Problems: (1) Sepsis Assessment & Plan: with H/O enterococcus faecium (VRE) was diagnosed on 04/29 at [facility] , S/P zyvox for two weeks , now with repeated blood culture x2 negative which confirm clearance, will stop zyvox empiric coverage since no evidence of recurrent bacteremia (2) Sacral ulcer Assessment & Plan: with underlying osteomyelitis , wound culture showed no growth so far , will switch meropenem to ertapenem to finish her course of 6 weeks antibiotics treatment for sacral osteomyelitis and stop zyvox empiric coverage . she had recent surgical debridement at [facility] , continue local wound care and off loading as per the wound care team, follow up with wound care clinic team after discharged (3) Episode of generalized weakness Assessment & Plan: improving, suspect due to anemia from recent surgical debridement, S/P blood transfusion , recommend PT/OT eval Subjective ROS Limited/Unobtainable: Yes Allergies: Coded Allergies: MORPHINE (Verified Allergy, Mild, 03/02/09) HYDROMORPHONE (Verified Allergy, Unknown, 01/13/11) Subjective she was up in bed awake and alert, coughing, no fever or chills, no diarrhea, tolerated po intake, daughter at the bedside Objective Vital Signs Last 24 Hour Vital Signs Date Time Temp Pulse Resp B/P (MAP) Pulse Ox O2 Delivery O2 Flow Rate FiO2 05/19/17 12:00 97.2 66 18 155/66 99 Room Air 97.2 05/19/17 08:00 97.0 68 18 156/60 97 Room Air 97.0 05/19/17 04:00 97.0 72 18 141/57 99 Room Air 97.0 05/19/17 00:00 97.7 73 19 153/62 97 Room Air 97.7 05/19/17 00:00 97 Room Air 05/18/17 20:34 97.9 87 18 133/70 96 97.9 05/18/17 16:00 96.6 62 20 124/67 96 96.6 Height (Feet): 5 Height (Inches): 3.00 Weight (Pounds): 120 General Appearance: WD/WN, no acute distress, cachetic HEENT: normocephalic, atraumatic, anicteric, mucous membranes moist, PERRL, pharynx normal, supple, no JVD Respiratory/Chest: chest wall non-tender, normal breath sounds, no respiratory distress, no accessory muscle use, decreased breath sounds, crackles/rales Cardiovascular: normal peripheral pulses, normal rate, regular rhythm, no gallop/murmur, no JVD Abdomen: normal bowel sounds, soft, non tender, no organomegaly, non distended , no mass, no scars Extremities: no cyanosis, no clubbing Skin: no rash, no lesions, ulcers - sacral pressure wound stage IV with surrounding skin erythema Neurologic/Psychiatric: alert, responsive Lymphatic: no neck adenopathy, no groin adenopathy Musculoskeletal: normal muscle bulk, no effusion Microbiology Date/Time Source Procedure Growth Status 05/16/17 22:00 Blood Blood Culture - Preliminary NO GROWTH AFTER 24 HOURS Resulted 05/16/17 21:45 Blood Blood Culture - Preliminary NO GROWTH AFTER 24 HOURS Resulted 05/18/17 13:00 Sacral Swab Gram Stain - Final Resulted 05/18/17 13:00 Sacral Swab Wound Culture - Preliminary NO GROWTH Resulted Current Medications Medications (Trade) Dose Ordered Sig/Dustin Route PRN Reason Start Time Stop Time Status Last Admin Dose Admin Acetaminophen (Tylenol) 650 mg EVERY 4 HOURS PRN ORAL PAIN/FEVER 05/17/17 02:15 06/16/17 02:14 Acetaminophen (Tylenol) 650 mg Q4H PRN ORAL fever>100.5 05/17/17 08:30 06/16/17 08:29 Amiodarone HCl (Cordarone) 100 mg DAILY ORAL 05/17/17 09:00 06/16/17 08:59 05/19/17 08:41 Aspirin (Ecotrin) 81 mg DAILY ORAL 05/17/17 09:00 06/16/17 08:59 05/19/17 08:48 Chlorhexidine Gluconate (Coco-Hex 2%) 1 applic DAILY@1999 TOPIC 05/18/17 20:00 06/17/17 19:59 05/18/17 21:31 Clotrimazole (Lotrimin) 1 applic EVERY 12 HOURS TOPIC 05/18/17 21:00 06/17/17 20:59 05/19/17 08:48 Dextrose (Dextrose 50%) STAT PRN IV Hypoglycemia 05/17/17 08:30 06/16/17 08:29 Donepezil HCl (Aricept) 5 mg DAILY ORAL 05/17/17 09:00 4/3/18 08:59 05/19/17 08:41 Epoetin Dane (Procrit (for ESRD on dialysis)) 7,000 units THU-THU-THU SUBQ 05/18/17 21:00 06/17/17 20:59 05/18/17 21:31 Ertapenem 1 gm/ Sodium Chloride 55 ml @ 110 mls/hr Q24H IVPB 05/19/17 16:00 05/24/17 15:59 Heparin Sodium (Porcine) (Heparin 5000 units/ml) 5,000 units EVERY 12 HOURS SUBQ 05/17/17 09:00 06/16/17 08:59 UNV Letrozole (Femara) 2.5 mg DAILY ORAL 05/17/17 09:00 05/22/17 08:59 05/19/17 08:41 Levothyroxine Sodium (Synthroid) 25 mcg ACBREAKFAST ORAL 05/17/17 11:30 06/16/17 11:29 05/19/17 05:32 Nitroglycerin (Ntg) 0.4 mg Q5M X 3 DOSES PRN SL Prn Chest Pain 05/17/17 08:30 06/16/17 08:29 Ondansetron HCl (Zofran) 4 mg Q6H PRN IVP Nausea & Vomiting 05/17/17 08:30 06/16/17 08:29 Polyethylene Glycol (Miralax) 17 gm HSPRN PRN ORAL Constipation 05/17/17 21:00 06/16/17 20:59 Vitamin B Complex (Vitamin B Complex) 1 ea DAILY ORAL 05/17/17 09:00 06/16/17 08:59 05/19/17 08:41 Vitamin D (Vitamin D) 2,000 intlu DAILY ORAL 05/17/17 09:00 06/16/17 08:59 05/19/17 08:41 Alexsander Shi M.D. May 19, 2017 14:36
[2017-05-19 16:00] VITALS: BP 152/72
[2017-05-19] MEDS ORDERED: Ertapenem 1 GM in NS 55 ML IVPB SCH (16:00)
--- NOTE | 2017-05-19 16:12 | Cardiology Report ---
APPROVED REPORT EKG Measurement Heart [id number] Normal Sinus rhythm normal ECG
[2017-05-19] MEDS: Heparin 5000 units/ml inj SUBQ SCH ×2 (17:00→17:34)
[2017-05-19] MEDS ORDERED: Tubing IV Secondary IV ONE (17:54)
--- NOTE | 2017-05-19 19:27 | General Progress Note ---
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 3) Dementia 4) Not dehydrated clinically Plan: Will hopefully discharge tomorrow [facility] do [facility] She might need HD Subjective Allergies: Coded Allergies: MORPHINE (Verified Allergy, Mild, 03/02/09) HYDROMORPHONE (Verified Allergy, Unknown, 01/13/11) Subjective She is doing status quo, she is somewhat lethargic, no distress Objective Last 24 Hour Vital Signs Date Time Temp Pulse Resp B/P (MAP) Pulse Ox O2 Delivery O2 Flow Rate FiO2 05/19/17 16:00 97.3 71 18 152/72 96 Room Air 97.3 05/19/17 12:00 97.2 66 18 155/66 99 Room Air 97.2 05/19/17 08:00 97.0 68 18 156/60 97 Room Air 97.0 05/19/17 04:00 97.0 72 18 141/57 99 Room Air 97.0 05/19/17 00:00 97.7 73 19 153/62 97 Room Air 97.7 05/19/17 00:00 97 Room Air 05/18/17 20:34 97.9 87 18 133/70 96 97.9 Intake and Output 05/18/17 05/19/17 19:00 07:00 Intake Total 445 ml 355 ml Balance 445 ml 355 ml Intake Oral 90 ml IV Total 355 ml 355 ml # Voids 4 2 # Bowel Movements 1 1 Height (Feet): 5 Height (Inches): 3.00 Weight (Pounds): 120 General Appearance: WD/WN, no apparent distress, lethargic EENT: PERRL/EOMI Neck: non-tender, normal alignment, supple Cardiovascular: normal rate, regular rhythm Respiratory/Chest: lungs clear, normal breath sounds Abdomen: normal bowel sounds, soft, no organomegaly 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
[2017-05-19 19:52] VITALS: BP 156/54
[2017-05-19] MEDS: Dyna-Hex 2% Top Sol 2oz TOPIC SCH (20:36)
[2017-05-20] VITALS: BP 155/61
[2017-05-20 04:38] VITALS: BP 158/66
[2017-05-20] MEDS: Levothyroxine 25mcg tab ORAL SCH (05:54)
[2017-05-20 07:32] LABS: HEMATOCRIT 24.9 % (37.0-47.0); HEMOGLOBIN 8.3 G/DL (12.0-16.0); MEAN CORPUSCULAR VOLUME 88 FL (80-99); PLATELET COUNT 88 K/UL (150-450); RED BLOOD COUNT 2.82 M/UL (4.20-5.40); RED CELL DISTRIBUTION WIDTH 14.7 % (11.6-14.8); WHITE BLOOD COUNT 8.7 K/UL (4.8-10.8)
[2017-05-20 07:44] VITALS: BP 165/95
[2017-05-20 08:18] LABS: ALANINE AMINOTRANSFERASE 21 U/L (12-78); ALBUMIN 2.3 G/DL (3.4-5.0); ALBUMIN/GLOBULIN RATIO 0.9 (1.0-2.7); ALKALINE PHOSPHATASE 94 U/L (46-116); ANION GAP 9 mmol/L (5-15); ASPARTATE AMINO TRANSFERASE 18 U/L (15-37); BILIRUBIN,TOTAL 0.3 MG/DL (0.2-1.0); BLOOD UREA NITROGEN 35 mg/dL (7-18); CALCIUM 9.2 MG/DL (8.5-10.1); CARBON DIOXIDE 24 MMOL/L (21-32); CHLORIDE 105 MMOL/L (98-107); CREATININE 1.9 MG/DL (0.55-1.30); SODIUM 138 MMOL/L (136-145)
[2017-05-20 08:50] VITALS: BP 165/95
[2017-05-20] MEDS: Aspirin EC 81mg tab ORAL SCH (08:50)
[2017-05-20] MEDS: Donepezil 5mg Tab ORAL SCH (08:50)
[2017-05-20] MEDS: Amiodarone 200mg tab ORAL SCH (08:50)
[2017-05-20] MEDS: Vitamin D 1000 IU Tab ORAL SCH (08:51)
[2017-05-20] MEDS ORDERED: INVANZ1 G1 IM (11:21)
[2017-05-20] MEDS ORDERED: INVANZ1 GM IVPB (11:36)
--- NOTE | 2017-05-20 11:37 | Discharge Summary ---
Discharge Summary Hospital Course Date of Admission May 16, 2017 at 22:40 Date of Discharge Admitting Diagnosis Weakness HPI Juana Mendez is a 87 year old female who was admitted on May 16, 2017 at 22:40 for Weakness Hospital Course See discharge summary dicatted #[id number] Discharge Discharge Disposition Patient was discharged to Home with Home Health(06) Discharge Diagnoses: HEIDY SANDOVAL May 20, 2017 11:37
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
--- NOTE | 2017-05-20 15:26 | Infectious Diseases Prog Note ---
Assessment/Plan Problems: (1) Sepsis Assessment & Plan: with H/O enterococcus faecium (VRE) was diagnosed on 04/29 at [facility] , S/P zyvox for two weeks , now with repeated blood culture x2 negative which confirm clearance, monitor off zyvox since no evidence of recurrent bacteremia (2) Sacral ulcer Assessment & Plan: with underlying osteomyelitis , wound culture showed no bacterial growth so far , but yeast only which is most likely colonization , continue ertapenem to finish her course of 6 weeks antibiotics treatment for sacral osteomyelitis . she had recent surgical debridement at [facility] , continue local wound care and off loading as per the wound care team, follow up with wound care clinic team after discharged (3) Episode of generalized weakness Assessment & Plan: improving, suspect due to anemia from recent surgical debridement, S/P blood transfusion , recommend PT/OT eval Subjective Constitutional: Reports: no symptoms HEENT: Reports: no symptoms Respiratory: Reports: no symptoms Breasts: Reports: no symptoms Cardiovascular: Reports: no symptoms Gastrointestinal/Abdominal: Reports: no symptoms Genitourinary: Reports: no symptoms Neurologic: Reports: no symptoms Psychiatric: Reports: no symptoms Skin: Reports: no symptoms Endocrine: Reports: no symptoms Hematologic: Reports: no symptoms Musculoskeletal: Reports: no symptoms Allergies: Coded Allergies: MORPHINE (Verified Allergy, Mild, 03/02/09) HYDROMORPHONE (Verified Allergy, Unknown, 01/13/11) Subjective she was up in bed awake and alert, and comfortable , no fever or chills, no diarrhea, tolerated po intake, daughter at the bedside Objective Vital Signs Last 24 Hour Vital Signs Date Time Temp Pulse Resp B/P (MAP) Pulse Ox O2 Delivery O2 Flow Rate FiO2 05/20/17 08:50 71 165/95 05/20/17 07:44 97.7 71 18 165/95 96 97.7 05/20/17 04:40 Room Air 05/20/17 04:38 97.7 75 18 158/66 96 97.7 05/20/17 00:00 97.9 68 18 155/61 100 Room Air 97.9 05/19/17 20:00 Room Air 05/19/17 19:52 97.7 64 18 156/54 100 97.7 05/19/17 16:00 97.3 71 18 152/72 96 Room Air 97.3 Height (Feet): 5 Height (Inches): 3.00 Weight (Pounds): 120 General Appearance: WD/WN, no acute distress HEENT: normocephalic, atraumatic, anicteric, mucous membranes moist, PERRL, EOMI, pharynx normal, supple, no JVD Respiratory/Chest: chest wall non-tender, lungs clear, normal breath sounds, no respiratory distress, no accessory muscle use Cardiovascular: normal peripheral pulses, normal rate, regular rhythm, no gallop/murmur, no JVD Abdomen: normal bowel sounds, soft, non tender, no organomegaly, non distended , no mass, no scars Extremities: no cyanosis, no clubbing Skin: no rash, no lesions, ulcers Neurologic/Psychiatric: alert, responsive Microbiology Date/Time Source Procedure Growth Status 05/17/17 21:15 Blood Blood Culture - Preliminary NO GROWTH AFTER 48 HOURS Resulted 05/17/17 21:15 Blood Blood Culture - Preliminary NO GROWTH AFTER 48 HOURS Resulted 05/18/17 13:00 Sacral Swab Gram Stain - Final Resulted 05/18/17 13:00 Wound Culture - Preliminary Bianka Albicans Resulted Laboratory Tests Test 05/20/17 05:20 White Blood Count 8.7 K/UL (4.8-10.8) Red Blood Count 2.82 M/UL (4.20-5.40) L Hemoglobin 8.3 G/DL (12.0-16.0) L Hematocrit 24.9 % (37.0-47.0) L Mean Corpuscular Volume 88 FL (80-99) Mean Corpuscular Hemoglobin 29.3 PG (27.0-31.0) Mean Corpuscular Hemoglobin Concent 33.2 G/DL (32.0-36.0) Red Cell Distribution Width 14.7 % (11.6-14.8) Platelet Count 88 K/UL (150-450) L Mean Platelet Volume 6.0 FL (6.5-10.1) L Neutrophils (%) (Auto) % (45.0-75.0) Lymphocytes (%) (Auto) % (20.0-45.0) Monocytes (%) (Auto) % (1.0-10.0) Eosinophils (%) (Auto) % (0.0-3.0) Basophils (%) (Auto) % (0.0-2.0) Differential Total Cells Counted 100 Neutrophils % (Manual) 66 % (45-75) Lymphocytes % (Manual) 24 % (20-45) Monocytes % (Manual) 8 % (1-10) Eosinophils % (Manual) 2 % (0-3) Basophils % (Manual) 0 % (0-2) Band Neutrophils 0 % (0-8) Nucleated Red Blood Cells 1 /100 WBC Platelet Estimate Decreased L Platelet Morphology Normal Hypochromasia 2+ Spherocytes 1+ Sodium Level 138 MMOL/L (136-145) Potassium Level 5.0 MMOL/L (3.5-5.1) Chloride Level 105 MMOL/L (98-107) Carbon Dioxide Level 24 MMOL/L (21-32) Anion Gap 9 mmol/L (5-15) Blood Urea Nitrogen 35 mg/dL (7-18) H Creatinine 1.9 MG/DL (0.55-1.30) H Estimat Glomerular Filtration Rate mL/min (>60) Glucose Level 74 MG/DL (74-106) Calcium Level 9.2 MG/DL (8.5-10.1) Total Bilirubin 0.3 MG/DL (0.2-1.0) Aspartate Amino Transf (AST/SGOT) 18 U/L (15-37) Alanine Aminotransferase (ALT/SGPT) 21 U/L (12-78) Alkaline Phosphatase 94 U/L (46-116) Total Protein 4.9 G/DL (6.4-8.2) L Albumin 2.3 G/DL (3.4-5.0) L Globulin 2.6 g/dL Albumin/Globulin Ratio 0.9 (1.0-2.7) L Alexsander Shi M.D. May 20, 2017 15:26
--- NOTE | 2017-05-21 08:45 | Discharge Summary ---
DATE OF ADMISSION: 05/17/2017 DATE OF DISCHARGE: 05/20/2017 DIAGNOSES ON DISCHARGE: 1. Sacral decubitus ulcer with underlying osteomyelitis. 2. Debilitation. 3. Underlying dementia. 4. 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 5. No signs of CHF. CONSULTANTS: Alexsander Shi M.D., Infectious Disease. HISTORY AND PHYSICAL AND HOSPITAL COURSE: For details, please refer to the history and physical as well as the consult dictated in the chart. This is a very pleasant 87-year-old unfortunate lady, patient of Dr. Fabrizio Boone, who has underlying chronic kidney disease. She was dialyzed in 2011, also has AV fistula on the right arm which has not been used, and has been off of dialysis for the past 6 years. She has had some decline in her current general condition, has had decubitus ulcer in the sacrum with underlying osteomyelitis for which she was admitted initially to [facility], and has been on IV ertapenem. At discharge, however, she was brought back to [facility] at this time because of failure to thrive, altered mental status, and weakness. Her serum creatinine has been in the range of 1.9 to 2 mg/dL, however, it seems that she has lost a lot of muscle since 6 months ago. She was able to walk apparently up to then and gradually has declined. There is also question of may be some worsening of her dementia. She was admitted. The wound VAC was exchanged and she was continued on IV antibiotic. Dr. Shi from Infectious Disease was consulted. We did renal ultrasound and showed bilateral small kidneys. She is still making urine. I recommended that she needed to get a renal scan to evaluate the GFR in this lady and if her GFR is below 10%, she probably would require to be started back on dialysis. She will be discharged in stable condition with IV antibiotic, ertapenem, for a total of 6 more weeks with home health which was arranged previously and follow up with Dr. Fabrizio Boone as an outpatient . Kenyon Maldonado M.D. DR: Kari JOB#: [id number] CC:
== END 2017-05-20 14:42 | disposition home health service (06) | DRG 592 ==
LOC: EDBD 21:01 → EMR 21:38 → MERGE 22:40 → 4W 22:40 → EDBEDREQ 22:45
PROC: 30233N1 Transfusion of Nonautologous Red Blood Cells into Peripheral Vein, Percutaneous Approach (ICD-10-PCS; principal; 2017-05-17)
DX: L89.154 Pressure ulcer of sacral region, stage 4 (principal); I13.11 Hypertensive heart and chronic kidney disease without heart failure, with stage 5 chronic kidney disease, or end stage renal disease; F03.90 Unspecified dementia, unspecified severity, without behavioral disturbance, psychotic disturbance, mood disturbance, and anxiety; M86.9 Osteomyelitis, unspecified; N18.5 Chronic kidney disease, stage 5; D64.9 Anemia, unspecified; E03.9 Hypothyroidism, unspecified; H35.30 Unspecified macular degeneration; M10.9 Gout, unspecified; R62.7 Adult failure to thrive; Z85.3 Personal history of malignant neoplasm of breast; Z85.72 Personal history of non-Hodgkin lymphomas; Z79.82 Long term (current) use of aspirin; Z16.21 Resistance to vancomycin
CPT/HCPCS: 36415; 71045; 80053; 81003; 82270; 82550; 82553; 83605; 84484; 85007; 85025; 85651; 86140; 86710; 86850; 86900; 86901; 86920; 87040; 87070; 87205; 93005; 99285

== ENCOUNTER 2017-05-27 13:09 | Outpatient (RCR) | payer MEDICARE, OTHER ==
[~2017-05-27] VITALS: Ht 147.3 cm; Wt 45.4 kg
[~2017-05-27 13:09] MED LIST changes: +INVANZ1 G1 IM; +INVANZ1 GM IVPB
== END 2017-06-13 | disposition home or self-care (01) ==
LOC: WCC 13:09
DX: L89.154 Pressure ulcer of sacral region, stage 4 (principal); M46.27 Osteomyelitis of vertebra, lumbosacral region; L89.221 Pressure ulcer of left hip, stage 1; Z90.49 Acquired absence of other specified parts of digestive tract; M19.90 Unspecified osteoarthritis, unspecified site; Z85.72 Personal history of non-Hodgkin lymphomas; I51.9 Heart disease, unspecified; Z79.82 Long term (current) use of aspirin
CPT/HCPCS: 11043; 11044; 97605

== ENCOUNTER 2017-06-16 15:10 | Outpatient (RCR) | payer MEDICARE, OTHER | END 2017-07-13 | disposition home or self-care (01) | LOC: WCC 15:10 | DX: L89.154 Pressure ulcer of sacral region, stage 4 (principal); M46.27 Osteomyelitis of vertebra, lumbosacral region; L89.221 Pressure ulcer of left hip, stage 1; I51.9 Heart disease, unspecified; M19.90 Unspecified osteoarthritis, unspecified site; Z85.72 Personal history of non-Hodgkin lymphomas | CPT/HCPCS: 11043 ==

== ENCOUNTER 2017-07-15 13:40 | Outpatient (RCR) | payer MEDICARE, OTHER | END 2017-08-13 | disposition home or self-care (01) | LOC: WCC 13:40 | DX: L89.154 Pressure ulcer of sacral region, stage 4 (principal); M46.27 Osteomyelitis of vertebra, lumbosacral region; L89.221 Pressure ulcer of left hip, stage 1; L89.101 Pressure ulcer of unspecified part of back, stage 1; I51.9 Heart disease, unspecified; M19.90 Unspecified osteoarthritis, unspecified site; Z85.72 Personal history of non-Hodgkin lymphomas; Z79.82 Long term (current) use of aspirin | CPT/HCPCS: 11043; 15271; Q4132 ==

== ENCOUNTER 2017-08-19 13:30 | Outpatient (RCR) | payer MEDICARE, OTHER | END 2017-09-12 | disposition home or self-care (01) | LOC: WCC 13:30 | DX: L89.154 Pressure ulcer of sacral region, stage 4 (principal); M46.27 Osteomyelitis of vertebra, lumbosacral region; L89.221 Pressure ulcer of left hip, stage 1; L89.101 Pressure ulcer of unspecified part of back, stage 1; Z90.49 Acquired absence of other specified parts of digestive tract; I51.9 Heart disease, unspecified; M19.90 Unspecified osteoarthritis, unspecified site; Z79.82 Long term (current) use of aspirin; Z88.6 Allergy status to analgesic agent | CPT/HCPCS: 11042; 11043 ==

== ENCOUNTER 2017-09-14 09:27 | Outpatient (RCR) | payer MEDICARE, OTHER ==
[~2017-09-14] VITALS: Ht 147.3 cm; Wt 45.4 kg
[2017-09-22] MEDS ORDERED: Lidocaine HCl 2% Jelly 5ml Tube TOPIC ONE (12:15)
[2017-09-28] MEDS ORDERED: VITAMIN C500 M1 ORAL (02:47)
[2017-09-28] MEDS ORDERED: ZINC30 M1 ORAL (02:47)
[2017-09-28] MEDS ORDERED: VITAMIN B COMP1 EAC2 ORAL (02:47)
[2017-09-28] MEDS ORDERED: SYNTHROID100 MCG ORAL (02:47)
[2017-09-28] MEDS ORDERED: ZINC SULFATE220 M2 ORAL (02:47)
== END 2017-10-13 | disposition home or self-care (01) ==
LOC: WCC 09:27
DX: L89.154 Pressure ulcer of sacral region, stage 4 (principal); L89.221 Pressure ulcer of left hip, stage 1; M46.27 Osteomyelitis of vertebra, lumbosacral region; L89.101 Pressure ulcer of unspecified part of back, stage 1; Z90.49 Acquired absence of other specified parts of digestive tract; I51.9 Heart disease, unspecified; Z85.72 Personal history of non-Hodgkin lymphomas; M19.90 Unspecified osteoarthritis, unspecified site; Z79.82 Long term (current) use of aspirin
CPT/HCPCS: G0463

== ENCOUNTER 2017-10-21 13:34 | Outpatient (RCR) | payer MEDICARE, OTHER ==
[~2017-10-21 13:34] MED LIST changes: +SYNTHROID100 MCG ORAL; +VITAMIN C500 M1 ORAL; +ZINC SULFATE220 M2 ORAL; +ZINC30 M1 ORAL
== END 2017-11-13 | disposition home or self-care (01) ==
LOC: WCC 13:34
DX: L89.154 Pressure ulcer of sacral region, stage 4 (principal); L89.221 Pressure ulcer of left hip, stage 1; M46.27 Osteomyelitis of vertebra, lumbosacral region; L89.101 Pressure ulcer of unspecified part of back, stage 1; Z90.49 Acquired absence of other specified parts of digestive tract; B35.4 Tinea corporis; I51.9 Heart disease, unspecified; M19.90 Unspecified osteoarthritis, unspecified site; Z79.82 Long term (current) use of aspirin; Z88.6 Allergy status to analgesic agent
CPT/HCPCS: 11043; 15271; Q4133

== ENCOUNTER 2017-11-18 13:01 | Outpatient (RCR) | payer MEDICARE, OTHER | END 2017-12-13 | disposition home or self-care (01) | LOC: WCC 13:01 | DX: L89.154 Pressure ulcer of sacral region, stage 4 (principal); L89.221 Pressure ulcer of left hip, stage 1; M46.27 Osteomyelitis of vertebra, lumbosacral region; L89.101 Pressure ulcer of unspecified part of back, stage 1; B35.4 Tinea corporis; M19.90 Unspecified osteoarthritis, unspecified site; I51.9 Heart disease, unspecified; Z90.49 Acquired absence of other specified parts of digestive tract | CPT/HCPCS: 11043 ==

== ENCOUNTER 2017-12-16 14:01 | Outpatient (RCR) | payer MEDICARE, OTHER | END 2018-01-13 | disposition home or self-care (01) | LOC: WCC 14:01 | DX: L89.154 Pressure ulcer of sacral region, stage 4 (principal); M46.27 Osteomyelitis of vertebra, lumbosacral region; L89.219 Pressure ulcer of right hip, unspecified stage; B35.6 Tinea cruris; Z90.49 Acquired absence of other specified parts of digestive tract; I51.9 Heart disease, unspecified; Z85.72 Personal history of non-Hodgkin lymphomas; Z79.82 Long term (current) use of aspirin | CPT/HCPCS: 11042; 11043; G0463 ==

== ENCOUNTER 2018-01-20 13:33 | Outpatient (RCR) | payer MEDICARE, OTHER | END 2018-02-12 | disposition home or self-care (01) | LOC: WCC 13:33 | DX: L89.154 Pressure ulcer of sacral region, stage 4 (principal); M46.27 Osteomyelitis of vertebra, lumbosacral region; B35.6 Tinea cruris; L89.211 Pressure ulcer of right hip, stage 1; L89.223 Pressure ulcer of left hip, stage 3; L89.219 Pressure ulcer of right hip, unspecified stage; Z88.6 Allergy status to analgesic agent; I51.9 Heart disease, unspecified; M19.90 Unspecified osteoarthritis, unspecified site; Z85.72 Personal history of non-Hodgkin lymphomas; Z90.49 Acquired absence of other specified parts of digestive tract; Z79.82 Long term (current) use of aspirin | CPT/HCPCS: 11043; 11044; C5271; Q4102 ==

== ENCOUNTER 2018-02-15 11:18 | Outpatient (RCR) | payer MEDICARE, OTHER ==
[~2018-02-15] VITALS: Ht 147.3 cm; Wt 45.4 kg
== END 2018-03-15 | disposition home or self-care (01) ==
LOC: WCC 11:18
DX: L89.154 Pressure ulcer of sacral region, stage 4 (principal); L89.213 Pressure ulcer of right hip, stage 3; L89.220 Pressure ulcer of left hip, unstageable; M46.27 Osteomyelitis of vertebra, lumbosacral region; B35.6 Tinea cruris; Z88.6 Allergy status to analgesic agent; I51.9 Heart disease, unspecified; M19.90 Unspecified osteoarthritis, unspecified site; Z90.49 Acquired absence of other specified parts of digestive tract; Z79.82 Long term (current) use of aspirin
CPT/HCPCS: 11042; 11043; 87070; 87205

== ENCOUNTER 2018-03-17 13:30 | Outpatient (RCR) | payer MEDICARE, OTHER ==
[2018-03-24] MEDS ORDERED: PROPOLIS (14:42)
== END 2018-04-15 | disposition home or self-care (01) ==
LOC: WCC 13:30
DX: L89.154 Pressure ulcer of sacral region, stage 4 (principal); L89.213 Pressure ulcer of right hip, stage 3; L89.220 Pressure ulcer of left hip, unstageable; M46.27 Osteomyelitis of vertebra, lumbosacral region; Z88.6 Allergy status to analgesic agent; E43 Unspecified severe protein-calorie malnutrition; D63.8 Anemia in other chronic diseases classified elsewhere; Z90.49 Acquired absence of other specified parts of digestive tract
CPT/HCPCS: 11043

== ENCOUNTER 2018-03-24 12:18 | Inpatient (IN) | payer MEDICARE, OTHER ==
[~2018-03-24] VITALS: Ht 137.2 cm; Wt 24.9 kg
[2018-03-24 12:30] VITALS: BP 161/144
[2018-03-24 13:22] LABS: BASOPHILS % (AUTO) 1.1 % (0.0-2.0); EOSINOPHILS % (AUTO) 0.8 % (0.0-3.0); HEMATOCRIT 29.5 % (37.0-47.0); HEMOGLOBIN 8.9 G/DL (12.0-16.0); LYMPHOCYTES % (AUTO) 39.5 % (20.0-45.0); MEAN CORPUSCULAR VOLUME 84 FL (80-99); MONOCYTES % (AUTO) 5.3 % (1.0-10.0); NEUTROPHILS % (AUTO) 53.3 % (45.0-75.0); PLATELET COUNT 178 K/UL (150-450); RED BLOOD COUNT 3.53 M/UL (4.20-5.40); RED CELL DISTRIBUTION WIDTH 19.2 % (11.6-14.8); WHITE BLOOD COUNT 8.1 K/UL (4.8-10.8)
[2018-03-24 13:22] LABS: APPEARANCE,URINE CLEAR; BILIRUBIN, URINE NEGATIVE (NEGATIVE); COLOR,URINE PALE YELLOW; GLUCOSE, URINE (UA) NEGATIVE (NEGATIVE); KETONES,URINE NEGATIVE (NEGATIVE); LEUKOCYTE ESTERASE ,URINE 1+ (NEGATIVE); NITRITE,URINE NEGATIVE (NEGATIVE); PH,URINE 5 (4.5-8.0); PROTEIN,URINE 2+ (NEGATIVE); UROBILINOGEN,URINE NORMAL MG/DL (0.0-1.0)
[2018-03-24] MEDS ORDERED: dilTIAZem HCl 25mg/5ml Inj IVP ONE (13:30)
[2018-03-24 13:37] LABS: ANION GAP 12 mmol/L (5-15); BLOOD UREA NITROGEN 41 mg/dL (7-18); CALCIUM 10.1 MG/DL (8.5-10.1); CARBON DIOXIDE 20 MMOL/L (21-32); CHLORIDE 105 MMOL/L (98-107); POTASSIUM 5.2 MMOL/L (3.5-5.1); SODIUM 137 MMOL/L (136-145)
[2018-03-24 13:52] LABS: ALANINE AMINOTRANSFERASE 26 U/L (12-78); ALBUMIN 2.6 G/DL (3.4-5.0); ALBUMIN/GLOBULIN RATIO 0.8 (1.0-2.7); ALKALINE PHOSPHATASE 86 U/L (46-116); ASPARTATE AMINO TRANSFERASE 29 U/L (15-37); BILIRUBIN,TOTAL 0.3 MG/DL (0.2-1.0); CREATINE KINASE 59 U/L (26-308); PHOSPHORUS 4.1 MG/DL (2.5-4.9)
[2018-03-24 14:00] VITALS: BP 114/65
--- NOTE | 2018-03-24 14:14 | Emergency Room Report ---
History of Present Illness General Chief Complaint: Generalized Weakness Source: Family Member Present Illness HPI Patient is an 88-year-old female presented after increased altered mental status. Patient was noted to have increased weakness. Patient had recently been hospitalized for infected skin wound. Patient recently finished a course of Invanz. She had recently been hospitalized at [facility]. Patient had been followed at wound care clinic. Patient's primary care physician is Dr. Edy Garza. Should be noted to be more confused than usual. Patient getting IV fluids infusion. Per the patient's daughter patient is a full code. Allergies: Coded Allergies: MORPHINE (Verified Allergy, Mild, 03/02/09) HYDROMORPHONE (Verified Allergy, Unknown, 01/13/11) Patient History Past Medical History: see triage record Reviewed Nursing Documentation: PMH: Agreed; PSxH: Agreed Nursing Documentation-PMH Hx Cardiac Problems: Yes - A FIB Hx COPD: Yes Hx Cancer: Yes Hx Gastrointestinal Problems: Yes Hx Dialysis: Yes - non-specfic kdney issue Hx Neurological Problems: Yes - dementia Hx Dementia: Yes Hx Dizziness: Yes Hx Syncope: Yes Hx Weakness: Yes Review of Systems All Other Systems: limited - by mental status Physical Exam Vital Signs Date Time Temp Pulse Resp B/P (MAP) Pulse Ox O2 Delivery O2 Flow Rate FiO2 03/24/18 12:14 96 18 141/87 97 Room Air General Appearance: cachetic, thin, Chronically Ill ENT: dry mucus membranes Neck: limited range of motion Respiratory: rhonchi, other - somnolent Cardiovascular #1: regular rate, rhythm, edema Gastrointestinal: normal inspection Musculoskeletal: swelling - right upper extremity Neurologic: motor weakness, other - confusion Skin: other - sacral ulcer, right upper extremity edema Medical Decision Making Diagnostic Impression: Primary Impression: Altered mental status Additional Impressions: Renal insufficiency Hx of breast cancer Decubitus skin ulcer ER Course Patient presented for altered mental status. Differential diagnosis include was not limited to intracranial hemorrhage, metastases, meningitis, urinary tract infection, dehydration, electrolyte abnormality among others. Because of complexity of patient's case laboratory testing and imaging studies were ordered. Patient was noted to have recent hospitalization for decubitus ulcer infection. Patient had been on IV Invanz recently. Patient was noted to have a fairly complex medical history which included some renal disease as well as prior history of breast cancer. Patient was started on IV fluids. Per discussion with the patient's family patient is full code. Chest x-ray 1 view read by radiology showed right paratracheal prominence there is some opacity of the left lung base with obscuration of the left hemidiaphragm which could indicate pleural fluid and/or parenchymal infiltrate. Patient's laboratory testing showed some evidence of anemia. Patient was admitted to hospital for further evaluation and management of altered mental status Labs Test 03/24/18 12:50 03/24/18 12:55 White Blood Count 8.1 K/UL (4.8-10.8) Red Blood Count 3.53 M/UL (4.20-5.40) Hemoglobin 8.9 G/DL (12.0-16.0) Hematocrit 29.5 % (37.0-47.0) Mean Corpuscular Volume 84 FL (80-99) Mean Corpuscular Hemoglobin 25.1 PG (27.0-31.0) Mean Corpuscular Hemoglobin Concent 30.0 G/DL (32.0-36.0) Red Cell Distribution Width 19.2 % (11.6-14.8) Platelet Count 178 K/UL (150-450) Mean Platelet Volume 6.5 FL (6.5-10.1) Neutrophils (%) (Auto) 53.3 % (45.0-75.0) Lymphocytes (%) (Auto) 39.5 % (20.0-45.0) Monocytes (%) (Auto) 5.3 % (1.0-10.0) Eosinophils (%) (Auto) 0.8 % (0.0-3.0) Basophils (%) (Auto) 1.1 % (0.0-2.0) Sodium Level 137 MMOL/L (136-145) Potassium Level 5.2 MMOL/L (3.5-5.1) Chloride Level 105 MMOL/L (98-107) Carbon Dioxide Level 20 MMOL/L (21-32) Anion Gap 12 mmol/L (5-15) Blood Urea Nitrogen 41 mg/dL (7-18) Creatinine 2.0 MG/DL (0.55-1.30) Estimat Glomerular Filtration Rate mL/min (>60) Glucose Level 74 MG/DL (74-106) Lactic Acid Level 0.60 mmol/L (0.4-2.0) Calcium Level 10.1 MG/DL (8.5-10.1) Phosphorus Level 4.1 MG/DL (2.5-4.9) Magnesium Level 2.4 MG/DL (1.8-2.4) Total Bilirubin 0.3 MG/DL (0.2-1.0) Aspartate Amino Transf (AST/SGOT) 29 U/L (15-37) Alanine Aminotransferase (ALT/SGPT) 26 U/L (12-78) Alkaline Phosphatase 86 U/L (46-116) Total Creatine Kinase 59 U/L (26-308) Creatine Kinase MB 3.0 NG/ML (0.0-3.6) Creatine Kinase MB Relative Index 5.0 Troponin I 0.000 ng/mL (0.000-0.056) Pro-B-Type Natriuretic Peptide 3877 pg/mL (0-125) Total Protein 5.9 G/DL (6.4-8.2) Albumin 2.6 G/DL (3.4-5.0) Globulin 3.3 g/dL Albumin/Globulin Ratio 0.8 (1.0-2.7) Urine Color Pale yellow Urine Appearance Clear Urine pH 5 (4.5-8.0) Urine Specific [place] 1.010 (1.005-1.035) Urine Protein 2+ (NEGATIVE) Urine Glucose (UA) Negative (NEGATIVE) Urine Ketones Negative (NEGATIVE) Urine Blood Negative (NEGATIVE) Urine Nitrite Negative (NEGATIVE) Urine Bilirubin Negative (NEGATIVE) Urine Urobilinogen Normal MG/DL (0.0-1.0) Urine Leukocyte Esterase 1+ (NEGATIVE) Urine RBC 0 /HPF (0 - 2) Urine WBC 0-2 /HPF (0 - 2) Urine Squamous Epithelial Cells Occasional /LPF Urine Bacteria Occasional /HPF (NONE) EKG Diagnostic Results Rate: normal - 100 Rhythm: NSR ST Segments: no acute changes Last Vital Signs Date Time Temp Pulse Resp B/P (MAP) Pulse Ox O2 Delivery O2 Flow Rate FiO2 03/24/18 12:14 96 18 141/87 97 Room Air Status: unchanged Disposition: ADMITTED INPATIENT Condition: Serious Referrals: NON PHYSICIAN (PCP) Karl Rouse MD Mar 24, 2018 14:14
[2018-03-24] MEDS ORDERED: PROPOLIS (14:42)
--- NOTE | 2018-03-24 14:45 | Diagnostic Imaging Report ---
Indications: Altered mental status Technique: Spiral acquisitions obtained through the brain. Angled axial and coronal 5 x 5 mm slices were reconstructed. Total dose length product 1340.9 mGycm. CTDI vol(s) 70.38 mGy. Dose reduction achieved using automated exposure control Comparison: 05/21/2015 Findings: There is age-related enlargement of the ventricles and extra axial CSF spaces. There is periventricular deep white matter low-attenuation consistent with chronic ischemic change. No acute intracranial hemorrhage or edema. No mass effect nor midline shift. Visualized orbits are unremarkable. There is some sphenoid sinus disease. The mastoids are clear, underpneumatized on the right. The calvarium is intact. Questionable small old ossified meningioma coming off of the right parietal inner table, measures 8 mm Impression: Chronic and age-related changes. No acute intracranial bleed or mass effect. The CT scanner at [facility] is accredited by the [employer] and the scans are performed using protocols designed to limit radiation exposure to as low as reasonably achievable to attain images of sufficient resolution adequate for diagnostic evaluation.
[2018-03-24 15:00] VITALS: BP 136/100
[2018-03-24 16:00] VITALS: BP 144/64
--- NOTE | 2018-03-24 16:19 | Diagnostic Imaging Report ---
Indication: Shortness of breath Technique: One view of the chest Comparison: 11/30/2016 Findings: There is rightward patient rotation. Right paratracheal prominence is unchanged from previous and earlier exams. Previously demonstrated left arm port catheter is no longer evident. There is some opacity left lung base with obscuration left hemidiaphragm. Impression: Left basilar opacity, could indicate pleural fluid and/or parenchymal infiltrate. Right paratracheal prominence, previously thought to represent an asymmetric enlarged right thyroid lobe
[2018-03-24] MEDS ORDERED: Ampicillin/Sulbactam Sod 3 GM in NS 110 ML IVPB ONE (16:45)
[2018-03-24 17:00] VITALS: BP 118/90
[2018-03-24 18:00] VITALS: BP 151/81
[2018-03-24] MEDS: Heparin 5000 units/ml inj SUBQ SCH (21:17)
[2018-03-25 07:25] LABS: BASOPHILS % (AUTO) 1.6 % (0.0-2.0); EOSINOPHILS % (AUTO) 2.3 % (0.0-3.0); HEMATOCRIT 26.9 % (37.0-47.0); HEMOGLOBIN 8.2 G/DL (12.0-16.0); LYMPHOCYTES % (AUTO) 46.1 % (20.0-45.0); MEAN CORPUSCULAR VOLUME 83 FL (80-99); MONOCYTES % (AUTO) 9.6 % (1.0-10.0); NEUTROPHILS % (AUTO) 40.4 % (45.0-75.0); PLATELET COUNT 164 K/UL (150-450); RED BLOOD COUNT 3.25 M/UL (4.20-5.40); RED CELL DISTRIBUTION WIDTH 19.7 % (11.6-14.8); WHITE BLOOD COUNT 4.5 K/UL (4.8-10.8)
[2018-03-25 07:44] LABS: ALANINE AMINOTRANSFERASE 23 U/L (12-78); ALBUMIN 2.5 G/DL (3.4-5.0); ALBUMIN/GLOBULIN RATIO 0.8 (1.0-2.7); ALKALINE PHOSPHATASE 81 U/L (46-116); ANION GAP 11 mmol/L (5-15); ASPARTATE AMINO TRANSFERASE 25 U/L (15-37); BILIRUBIN,TOTAL 0.3 MG/DL (0.2-1.0); BLOOD UREA NITROGEN 42 mg/dL (7-18); CALCIUM 9.9 MG/DL (8.5-10.1); CARBON DIOXIDE 23 MMOL/L (21-32); CHLORIDE 105 MMOL/L (98-107); POTASSIUM 4.6 MMOL/L (3.5-5.1); SODIUM 139 MMOL/L (136-145)
[2018-03-25 08:00] VITALS: BP 124/66
[2018-03-25] MEDS: Vitamin D 1000 IU Tab ORAL SCH (09:08)
[2018-03-25] MEDS: Aspirin Baby 81mg ORAL SCH (09:08)
[2018-03-25] MEDS: Zinc Sulfate 220mg cap ORAL SCH (09:08)
[2018-03-25] MEDS: Amiodarone 200mg tab ORAL SCH (09:08)
[2018-03-25] MEDS: Vitamin B Complex Tab ORAL SCH (09:10)
[2018-03-25] MEDS: Heparin 5000 units/ml inj SUBQ SCH ×2 (09:10→20:46)
[2018-03-25 12:00] VITALS: BP 134/74
[2018-03-25 20:00] VITALS: BP 144/78
--- NOTE | 2018-03-25 20:45 | History and Physical Report ---
DATE OF ADMISSION: 03/24/2018 REASON FOR ADMISSION: Altered mental status. HISTORY OF PRESENT ILLNESS: This is a very pleasant 88-year-old white female with multiple medical problems, has advanced dementia, who is homebound and is taken care of by her daughter. Apparently, she has been in her usual state of health until about 3 to 4 days prior to admission that she started to have some increasing weakness and becoming more lethargic and sleepy, and eventually on 03/24/2018, she was very altered and was brought to the emergency room of [facility] for further evaluation. CBC in the emergency room did not show any signs of leukocytosis. She did not have any fever. According to the daughter, she has been having some cough intermittently. Essentially, chest x-ray in the emergency room showed evidence of apical redistribution of the vessels and there was some bilateral pleural effusion. A dose of 40 mg of IV Lasix was given in the floor when she was admitted and by the time I am seeing her today on 03/25/2018, she is looking somewhat better. She is more alert and there is also a report of blood culture being positive for gram-positive cocci in cluster in one bottle only, identification is still pending. Again, I have to mention that I have repeat of the CBC, she did not have any elevation of her white counts, she is afebrile, and she is not having any low blood pressure. PAST MEDICAL HISTORY: Significant for advanced chronic kidney disease, probably stage 5; anorexia; hypertensive heart disease; atrial fibrillation; probable chronic diastolic heart dysfunction; previous vasovagal episode; non-Hodgkin's lymphoma; pancreatitis due to common bile duct stone; osteoarthritis of the left shoulder; vascular dementia; previous sepsis; multiple decubital ulcers with the infections in the recent past; history of gout; hypercholesterolemia; hearing loss; scoliosis; pseudogout of the left knee; and previous syncope. Also, she has had breast biopsy. She also has macular degeneration. PAST SURGICAL HISTORY: Status post cataract surgery, status post breast biopsy, status post orthopedic care interventions on the knee, and status post lyses of adhesions laparoscopically with a umbilical hernia repair. MEDICATIONS: Prior to admission, has been ascorbic acid 250 mg daily, zinc sulfate 220 mg p.o. daily, lactobacillus one tablet p.o. daily, aspirin 81 mg p.o. daily, Synthroid 0.1 mg p.o. daily, amiodarone 100 mg p.o. daily, Femara 2.5 mg p.o. daily, vitamin D3 1000 units p.o. daily. SOCIAL HISTORY: She is a and she has a very supportive daughter. Never smoked. No drinking. No drugs. ALLERGIES: Dairy, Dilaudid, morphine, and Levaquin. REVIEW OF SYSTEMS: Impossible since she is not able to give me a very fruitful history. Most of the history is taken by the daughter and is reflected in the history of present illness. PHYSICAL EXAMINATION: GENERAL: This is a frail looking elderly woman, does not seem to be in much acute distress, lying down in bed. VITAL SIGNS: Blood pressure is 134/74, pulse of 69, respirations 18, and temperature is 96.8 degree Fahrenheit. HEENT: Head is atraumatic. Eyes, pupils are reactive to light. No evidence of papilledema. Ears, canals are clear. Tympanic membranes are intact. Nose, nares are patent without any nasal discharge. Throat without inflammation or exudate. NECK: Supple. Jugular venous distention is somewhat increased. No cervical adenopathy. No thyromegaly. HEART: Irregularly irregular. LUNGS: Few crackles in both bases. ABDOMEN: Supple. Bowel sounds positive. No hepatosplenomegaly. EXTREMITIES: No cyanosis or clubbing. No pedal edema. NEUROLOGICAL: Cranial nerves are intact. There is no focal neurological deficit present. She is disoriented x3 and not very liable. LABORATORY DATA: Showing a urinalysis, which shows 2+ protein, and no rbcs or wbcs per high-power field. Sodium 139, potassium 4.6, chloride 105, carbon dioxide 23, BUN is 42, and creatinine is 2.0. Albumin is 2.5. LFTs within normal range. WBC is 4.5, hemoglobin is 8.2, hematocrit is 26.9, and platelets of 164,000. Chest x-ray is showing apical redistribution of the vessels with bilateral pleural effusion. IMPRESSION: 1. She seems to be in some degree of fluid overload and CHF. I am suspecting acute exacerbation of chronic diastolic heart failure. 2. Altered mental status might have been secondary to CO2 retention, caused by CHF, which has improved with diuresis. 3. She has one positive blood culture from a possible Staph, however, the identification is still pending and I doubt this is real, there might have been contamination. 4. Underlying dementia. 5. She has multiple decubitus ulcers. PLAN: She is admitted. We are going to continue diuresis with Lasix 40 mg IV daily. We will get surgical consult for looking at the wound. I am going to obtain a 2D echo on her. I am also going to obtain Infectious Disease consult. I would hold off antibiotics at this point since there is no obvious signs of infection. Kenyon Maldonado M.D. DR: MINDI JOB#: [id number] CC:
--- NOTE | 2018-03-25 20:56 | Consultation ---
History of Present Illness General Date patient seen: Mar 25, 2018 Time patient seen: 20:42 Chief Complaint: Generalized Weakness Reason for Consultation: Sacral pressure injury Present Illness HPI Asked to evaluate this 88 yof with sacral pressure injury. [place] [facility] [place] with altered mental status. She has a h/o chronic stage 4 sacral pressure injury that has gone through phases of improvement and worsening. She has been intermittently seen at the [place] [facility] [place] the treatment has been interrupted with admissions to inpatient hospitals. Patient is unable to provide history and it is unclear what the treatment to the ulcer has been prior to admission. Upon admission she has a normal WBC but + blood cultures. Allergies: Coded Allergies: MORPHINE (Verified Allergy, Mild, 03/02/09) HYDROMORPHONE (Verified Allergy, Unknown, 01/13/11) Medication History Scheduled Amiodarone Hcl (Amiodarone Hcl), 100 MG ORAL DAILY, (Reported) Ascorbic Acid* (Vitamin C*), 500 MG ORAL DAILY, (Reported) Aspirin* (Aspir-Low*), 81 MG PO DAILY, (Reported) Cholecalciferol (Vitamin D3)* (Vitamin D*), 5,000 UNIT ORAL DAILY, (Reported) Letrozole (Femara), 2.5 MG PO DAILY, (Reported) Levothyroxine Sodium* (Synthroid*), 100 MCG ORAL ACBREAKFAST, (Reported) Vitamin B Complex (Vitamin B Complex), 1 CAP ORAL DAILY, (Reported) Zinc Sulfate (Zinc Sulfate), 220 MG ORAL DAILY, (Reported) Miscellaneous Medications [propolis extract], (Reported) Patient History Limited by: medical condition History Provided By: Medical Record Healthcare decision maker Resuscitation status Full Code Advanced Directive on File Past Medical/Surgical History Past Medical/Surgical History: (1) Dementia (2) CAD (coronary artery disease) (3) Breast cancer (4) Anemia in chronic kidney disease (5) CKD (chronic kidney disease) stage 5, GFR less than 15 ml/min Physical Exam General Appearance: no apparent distress Lines, tubes and drains: peripheral Extremities: other - RUE with lymphedema Skin Exam: other - Stage 4 sacral pressure injury with some fibrotic debris at the base. Periskin with stage 1 pressure changes. No warmth or fluctuance and no purulent drainage or odor. Undermining at 12 oclock. left trochanter with stage 2 pressure injury, right trochanter with stasge 1 pressure injury. Musculoskeletal: atrophy Last 24 Hour Vital Signs Date Time Temp Pulse Resp B/P (MAP) Pulse Ox O2 Delivery O2 Flow Rate FiO2 03/25/18 16:00 Nasal Cannula 2.0 03/25/18 15:48 72 03/25/18 12:00 96.8 69 18 134/74 (94) 99 03/25/18 12:00 Nasal Cannula 2.0 03/25/18 11:42 69 03/25/18 08:02 71 03/25/18 08:00 96.8 69 18 124/66 (85) 100 03/25/18 08:00 Nasal Cannula 2.0 03/25/18 04:00 75 03/25/18 04:00 Nasal Cannula 2.0 03/25/18 00:00 Nasal Cannula 2.0 03/25/18 00:00 69 Intake and Output 03/24/18 03/25/18 19:00 07:00 Intake Total 1110 ml Output Total 100 ml Balance 1010 ml Intake IV Total 1110 ml Output Urine Total 100 ml # Voids 3 Laboratory Tests Test 03/25/18 04:51 White Blood Count 4.5 K/UL (4.8-10.8) L Red Blood Count 3.25 M/UL (4.20-5.40) L Hemoglobin 8.2 G/DL (12.0-16.0) L Hematocrit 26.9 % (37.0-47.0) L Mean Corpuscular Volume 83 FL (80-99) Mean Corpuscular Hemoglobin 25.4 PG (27.0-31.0) L Mean Corpuscular Hemoglobin Concent 30.6 G/DL (32.0-36.0) L Red Cell Distribution Width 19.7 % (11.6-14.8) H Platelet Count 164 K/UL (150-450) Mean Platelet Volume 6.3 FL (6.5-10.1) L Neutrophils (%) (Auto) 40.4 % (45.0-75.0) L Lymphocytes (%) (Auto) 46.1 % (20.0-45.0) H Monocytes (%) (Auto) 9.6 % (1.0-10.0) Eosinophils (%) (Auto) 2.3 % (0.0-3.0) Basophils (%) (Auto) 1.6 % (0.0-2.0) Sodium Level 139 MMOL/L (136-145) Potassium Level 4.6 MMOL/L (3.5-5.1) Chloride Level 105 MMOL/L (98-107) Carbon Dioxide Level 23 MMOL/L (21-32) Anion Gap 11 mmol/L (5-15) Blood Urea Nitrogen 42 mg/dL (7-18) H Creatinine 2.0 MG/DL (0.55-1.30) H Estimat Glomerular Filtration Rate mL/min (>60) Glucose Level 76 MG/DL (74-106) Calcium Level 9.9 MG/DL (8.5-10.1) Total Bilirubin 0.3 MG/DL (0.2-1.0) Aspartate Amino Transf (AST/SGOT) 25 U/L (15-37) Alanine Aminotransferase (ALT/SGPT) 23 U/L (12-78) Alkaline Phosphatase 81 U/L (46-116) Total Protein 5.5 G/DL (6.4-8.2) L Albumin 2.5 G/DL (3.4-5.0) L Globulin 3.0 g/dL Albumin/Globulin Ratio 0.8 (1.0-2.7) L Height (Feet): 4 Height (Inches): 6.00 Weight (Pounds): 55 Medications Current Medications Medications (Trade) Dose Ordered Sig/Dustin Route PRN Reason Start Time Stop Time Status Last Admin Dose Admin Amiodarone HCl (Cordarone) 100 mg DAILY ORAL 03/25/18 09:00 04/24/18 08:59 03/25/18 09:08 Aspirin (ASA) 81 mg DAILY ORAL 03/25/18 09:00 04/24/18 08:59 03/25/18 09:08 Furosemide (Lasix) 40 mg DAILY IV 03/25/18 18:30 04/24/18 18:29 03/25/18 18:37 Heparin Sodium (Porcine) (Heparin 5000 units/ml) 5,000 units EVERY 12 HOURS SUBQ 03/24/18 21:00 04/23/18 20:59 03/25/18 09:10 Letrozole (Femara) 2.5 mg DAILY ORAL 03/25/18 09:00 03/30/18 08:59 03/25/18 09:08 Levothyroxine Sodium (Synthroid) 100 mcg ACBREAKFAST ORAL 03/25/18 06:30 04/24/18 06:29 03/25/18 06:05 Vitamin B Complex (Vitamin B Complex) 1 tab DAILY ORAL 03/25/18 09:00 04/24/18 08:59 03/25/18 09:10 Vitamin D (Vitamin D) 1,000 intlu DAILY ORAL 03/25/18 09:00 04/24/18 08:59 03/25/18 09:08 Zinc Sulfate (Zinc Sulfate) 220 mg DAILY ORAL 03/25/18 09:00 04/24/18 08:59 03/25/18 09:08 Assessment/Plan Status: stable Assessment/Plan Patient with chronic stage 4 sacral pressure injury. Ulcer is stable and not clinically infected. Patient to continue therahoney as well as offloading. Given her age and overall condition, not an ideal candidate for surgical resection and closure. Do not feel that the ulcer is the cause of her altered mental status. No surgical intervention indicated at this time. Thank you for allowing me to participate in this patient's care. Antonio Munguia MD Mar 25, 2018 20:56
--- NOTE | 2018-03-25 22:12 | Infectious Diseases Prog Note ---
Assessment/Plan Problems: (1) Gram-positive cocci bacteremia Assessment & Plan: growing from anaerobic bottle only suspect contaminant , will repeat blood culture x2 , keep off antibiotics (2) Decubitus skin ulcer Assessment & Plan: of the sacrum and ischium , they don't look infected. continue local wounds care and dressings change as per wound care service (3) Renal insufficiency Assessment & Plan: chronic , monitor renal function, avoid nephrotoxics (4) Altered mental status Assessment & Plan: suspect metabolic improving Subjective Allergies: Coded Allergies: MORPHINE (Verified Allergy, Mild, 03/02/09) HYDROMORPHONE (Verified Allergy, Unknown, 01/13/11) Objective Vital Signs Last 24 Hour Vital Signs Date Time Temp Pulse Resp B/P (MAP) Pulse Ox O2 Delivery O2 Flow Rate FiO2 03/25/18 20:00 77 03/25/18 20:00 97.5 79 20 144/78 (100) 99 03/25/18 16:00 Nasal Cannula 2.0 03/25/18 15:48 72 03/25/18 12:00 96.8 69 18 134/74 (94) 99 03/25/18 12:00 Nasal Cannula 2.0 03/25/18 11:42 69 03/25/18 08:02 71 03/25/18 08:00 96.8 69 18 124/66 (85) 100 03/25/18 08:00 Nasal Cannula 2.0 03/25/18 04:00 75 03/25/18 04:00 Nasal Cannula 2.0 03/25/18 00:00 Nasal Cannula 2.0 03/25/18 00:00 69 Height (Feet): 4 Height (Inches): 6.00 Weight (Pounds): 55 Microbiology Date/Time Source Procedure Growth Status 03/24/18 12:55 Blood Blood Culture - Preliminary Resulted Laboratory Tests Test 03/25/18 04:51 White Blood Count 4.5 K/UL (4.8-10.8) L Red Blood Count 3.25 M/UL (4.20-5.40) L Hemoglobin 8.2 G/DL (12.0-16.0) L Hematocrit 26.9 % (37.0-47.0) L Mean Corpuscular Volume 83 FL (80-99) Mean Corpuscular Hemoglobin 25.4 PG (27.0-31.0) L Mean Corpuscular Hemoglobin Concent 30.6 G/DL (32.0-36.0) L Red Cell Distribution Width 19.7 % (11.6-14.8) H Platelet Count 164 K/UL (150-450) Mean Platelet Volume 6.3 FL (6.5-10.1) L Neutrophils (%) (Auto) 40.4 % (45.0-75.0) L Lymphocytes (%) (Auto) 46.1 % (20.0-45.0) H Monocytes (%) (Auto) 9.6 % (1.0-10.0) Eosinophils (%) (Auto) 2.3 % (0.0-3.0) Basophils (%) (Auto) 1.6 % (0.0-2.0) Sodium Level 139 MMOL/L (136-145) Potassium Level 4.6 MMOL/L (3.5-5.1) Chloride Level 105 MMOL/L (98-107) Carbon Dioxide Level 23 MMOL/L (21-32) Anion Gap 11 mmol/L (5-15) Blood Urea Nitrogen 42 mg/dL (7-18) H Creatinine 2.0 MG/DL (0.55-1.30) H Estimat Glomerular Filtration Rate mL/min (>60) Glucose Level 76 MG/DL (74-106) Calcium Level 9.9 MG/DL (8.5-10.1) Total Bilirubin 0.3 MG/DL (0.2-1.0) Aspartate Amino Transf (AST/SGOT) 25 U/L (15-37) Alanine Aminotransferase (ALT/SGPT) 23 U/L (12-78) Alkaline Phosphatase 81 U/L (46-116) Total Protein 5.5 G/DL (6.4-8.2) L Albumin 2.5 G/DL (3.4-5.0) L Globulin 3.0 g/dL Albumin/Globulin Ratio 0.8 (1.0-2.7) L Current Medications Medications (Trade) Dose Ordered Sig/Dustin Route PRN Reason Start Time Stop Time Status Last Admin Dose Admin Amiodarone HCl (Cordarone) 100 mg DAILY ORAL 03/25/18 09:00 04/24/18 08:59 03/25/18 09:08 Aspirin (ASA) 81 mg DAILY ORAL 03/25/18 09:00 04/24/18 08:59 03/25/18 09:08 Furosemide (Lasix) 40 mg DAILY IV 03/25/18 18:30 04/24/18 18:29 03/25/18 18:37 Heparin Sodium (Porcine) (Heparin 5000 units/ml) 5,000 units EVERY 12 HOURS SUBQ 03/24/18 21:00 04/23/18 20:59 03/25/18 20:46 Letrozole (Femara) 2.5 mg DAILY ORAL 03/25/18 09:00 03/30/18 08:59 03/25/18 09:08 Levothyroxine Sodium (Synthroid) 100 mcg ACBREAKFAST ORAL 03/25/18 06:30 04/24/18 06:29 03/25/18 06:05 Vitamin B Complex (Vitamin B Complex) 1 tab DAILY ORAL 03/25/18 09:00 04/24/18 08:59 03/25/18 09:10 Vitamin D (Vitamin D) 1,000 intlu DAILY ORAL 03/25/18 09:00 04/24/18 08:59 03/25/18 09:08 Zinc Sulfate (Zinc Sulfate) 220 mg DAILY ORAL 03/25/18 09:00 04/24/18 08:59 03/25/18 09:08 Alexsander Shi M.D. Mar 25, 2018 22:12
[2018-03-26 04:00] VITALS: BP 139/51
[2018-03-26 08:00] VITALS: BP 119/75
[2018-03-26] MEDS: Zinc Sulfate 220mg cap ORAL SCH (09:18)
[2018-03-26] MEDS: Vitamin B Complex Tab ORAL SCH (09:18)
[2018-03-26] MEDS: Amiodarone 200mg tab ORAL SCH (09:18)
[2018-03-26] MEDS: Aspirin Baby 81mg ORAL SCH (09:19)
[2018-03-26] MEDS: Heparin 5000 units/ml inj SUBQ SCH ×2 (09:27→20:43)
[2018-03-26] MEDS: Vitamin D 1000 IU Tab ORAL SCH (10:13)
[2018-03-26 12:00] VITALS: BP 116/59
[2018-03-26 12:57] LABS: BASOPHILS % (AUTO) 1.1 % (0.0-2.0); EOSINOPHILS % (AUTO) 2.1 % (0.0-3.0); HEMATOCRIT 27.3 % (37.0-47.0); HEMOGLOBIN 8.4 G/DL (12.0-16.0); LYMPHOCYTES % (AUTO) 35.6 % (20.0-45.0); MEAN CORPUSCULAR VOLUME 83 FL (80-99); MONOCYTES % (AUTO) 8.5 % (1.0-10.0); NEUTROPHILS % (AUTO) 52.7 % (45.0-75.0); PLATELET COUNT 170 K/UL (150-450); RED CELL DISTRIBUTION WIDTH 19.4 % (11.6-14.8); WHITE BLOOD COUNT 5.2 K/UL (4.8-10.8)
[2018-03-26 12:58] LABS: % IRON SATURATION 14 % (15-50); IRON 22 ug/dL (50-175); TOTAL IRON BINDING CAPACITY 154 ug/dL (250-450)
[2018-03-26 13:10] LABS: ANION GAP 9 mmol/L (5-15); BLOOD UREA NITROGEN 49 mg/dL (7-18); CALCIUM 10.1 MG/DL (8.5-10.1); CARBON DIOXIDE 28 MMOL/L (21-32); CHLORIDE 103 MMOL/L (98-107); CREATININE 2.2 MG/DL (0.55-1.30); POTASSIUM 4.4 MMOL/L (3.5-5.1); SODIUM 139 MMOL/L (136-145)
[2018-03-26 13:34] LABS: FERRITIN 922 NG/ML (8-388)
[2018-03-26 16:00] VITALS: BP 104/58
--- NOTE | 2018-03-26 16:24 | General Progress Note ---
Assessment/Plan Assessment/Plan 1) Acute exacerbation of diastolic CHF 2) Profound dementia 3) Malnourished 4) CKD IV 5) Decubiti ulcers Plan: Will continue diuresis Will Check CXR PT + OT Subjective Allergies: Coded Allergies: MORPHINE (Verified Allergy, Mild, 03/02/09) HYDROMORPHONE (Verified Allergy, Unknown, 01/13/11) Subjective She is alert, no fever or chills, no obvious infection, disoriented, the TTE shows EF of 60%, some pulmonary HTN Objective Last 24 Hour Vital Signs Date Time Temp Pulse Resp B/P (MAP) Pulse Ox O2 Delivery O2 Flow Rate FiO2 03/26/18 12:00 95.9 66 17 116/59 (78) 99 03/26/18 12:00 63 03/26/18 12:00 Nasal Cannula 2.0 03/26/18 08:00 97.0 73 19 119/75 (90) 100 03/26/18 08:00 70 03/26/18 08:00 Nasal Cannula 2.0 03/26/18 04:00 97.3 69 20 139/51 (80) 99 03/26/18 04:00 Nasal Cannula 2.0 03/26/18 03:43 69 03/26/18 00:00 Nasal Cannula 2.0 03/26/18 00:00 79 03/25/18 20:00 77 03/25/18 20:00 Nasal Cannula 2.0 03/25/18 20:00 97.5 79 20 144/78 (100) 99 Intake and Output 03/25/18 03/26/18 19:00 07:00 Output Total 700 ml Balance -700 ml Output Urine Total 700 ml # Voids 4 # Bowel Movements 2 1 Laboratory Tests 03/26/18 12:20: White Blood Count 5.2, Red Blood Count 3.30L, Hemoglobin 8.4L, Hematocrit 27.3L , Mean Corpuscular Volume 83, Mean Corpuscular Hemoglobin 25.4L, Mean Corpuscular Hemoglobin Concent 30.7L, Red Cell Distribution Width 19.4H, Platelet Count 170, Mean Platelet Volume 6.0L, Neutrophils (%) (Auto) 52.7, Lymphocytes (%) (Auto) 35.6, Monocytes (%) (Auto) 8.5, Eosinophils (%) (Auto) 2.1, Basophils (%) (Auto) 1.1, Sodium Level 139, Potassium Level 4.4, Chloride Level 103, Carbon Dioxide Level 28, Anion Gap 9, Blood Urea Nitrogen 49H, Creatinine 2.2H, Estimat Glomerular Filtration Rate , Glucose Level 96, Calcium Level 10.1, Iron Level 22L, Total Iron Binding Capacity 154L, Percent Iron Saturation 14L, Unsaturated Iron Binding 132, Ferritin 922H, Troponin I 0.004, Pro-B-Type Natriuretic Peptide 4042H Height (Feet): 4 Height (Inches): 6.00 Weight (Pounds): 55 General Appearance: WD/WN, no apparent distress, alert EENT: PERRL/EOMI Neck: non-tender, normal alignment Cardiovascular: normal rate, regular rhythm, JVD - high Respiratory/Chest: decreased breath sounds Abdomen: normal bowel sounds, non tender Pelvis: normal external exam Edema: trace edema Neurologic: signal worker II-XII grossly normal, no motor/sensory deficits, disoriented Kenyon Maldonado MD Mar 26, 2018 16:24
--- NOTE | 2018-03-26 17:43 | Cardiology Report ---
APPROVED REPORT EXAM: Two-dimensional and M-mode echocardiogram with Doppler and color Doppler. INDICATION Congestive Heart Failure M-Mode DIMENSIONS IVSd1.3 (0.7-1.1cm)Left Atrium (MM)3.7 (1.6-4.0cm) LVDd5.2 (3.5-5.6cm)Aortic Root3.1 (2.0-3.7cm) PWd1.0 (0.7-1.1cm)Aortic Cusp Exc.1.7 (1.5-2.0cm) IVSs1.8 cm LVDs2.9 (2.5-4.0cm) PWs1.1 cm Normal left ventricular chamber size, systolic function and wall motion. Left ventricular ejection fraction estimated to be 60 %. No evidence of left ventricular hypertrophy. Trivial pericardial effusion. Pleural effusion . Mild left atrial enlargement . Right cardiac cardiac chamber sizes are within normal limits. Focal aortic valve sclerosis with adequate cusp excursion. Thickened mitral valve leaflets with normal excursion. Mitral annulus and aortic root calcification. Normal pulmonic valve structure. Normal tricuspid valve structure. IVC at normal size with physiologic collapse. A color flow and spectral Doppler study was performed and revealed: No aortic regurgitation. Mild mitral regurgitation. Mitral diastolic velocities suggest reduced left ventricular relaxation c/w mild LV diastolic dysfunction (Grade I ). Mild tricuspid regurgitation. Tricuspid systolic velocities suggests peak right ventricular systolic pressure of 41 mmHg,consistent with mild pulmonary hypertension . Mild pulmonic regurgitation present.
[2018-03-26 20:00] VITALS: BP 114/77
--- NOTE | 2018-03-26 23:56 | Consultation ---
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 no fever or chills, no SOB , but mild cough , no diarrhea . she was more altered on the so she was brought in for evaluation and management. CXR in ED showed left basilar opacity concerning for infiltrates . her WBC was normal, blood culture was obtained in ED and one unaerobic bottle is grwoing gram positive cocci in clusters. so I was consulted for antibiotics treatment and further management. as of note patient is demented, and poor historian , couldn't provide any history , which was mainly obtained from the daughters at the bedside ROS: 14 Points of systems reviewed, were all negative except the one I mentioned above PMH: chronic kidney disease, progressive dementia, diastolic CHF, paroxysmal atrial fibrillation, and prior retreatment for lymphoma and breast cancer PAST SURGICAL HISTORY: Right shoulder surgery, herniorrhaphy, left breast biopsy, lymphoma biopsy, AV fistula of right arm, dialysis catheter, multiple ports, and pacemaker. MEDICATIONS: At home include amiodarone, aspirin, vitamin D3, donepezil, Femara, levothyroxine, Zocor, vitamin B complex. SOCIAL HISTORY: She lives with daughters at home , nondrinker, nonsmoker. PHYSICAL EXAMINATION: GENERAL: old female , cachectic, lying in bed, NAD . VITAL SIGNS: Temperature 96.8, pulse 69, respirations 18, and blood pressure 134/74. HEAD, EYES, EARS, NOSE, THROAT: Sclerae are nonicteric. Ocular motions intact in all directions. Oral mucosa slightly dry. NECK: No adenopathy or thyroid enlargement. LUNGS: Clear to auscultation , no wheezing or rhonchi .diminished breathing sounds at the bases HEART: Regular rate and rhythm. no murmur. ABDOMEN: Soft , NT, ND, without organomegaly or masses. EXTREMITIES: No edema, cyanosis, or clubbing. AV fistula in the right arm. NEUROLOGIC: She is alert, disoriented. Cranial nerves are intact. No focal findings. SKIN: sacral decubitus wound stage iv with fibrotic tissue at the base, no draining or foul smell B/L trochanteric DTI with left side pressure wound LABORATORY DATA: wbc 4.5, hg 8.2, bun 42, cr 2.0 IMAGES: CXR: left lower lobe density Assessment/Plan ASSESSMENT: 1. 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 B/L trochanteric pressure wounds with DTI 3. bacteremia with gram positive cocci 4. acute encephalopathy RECOMMENDATIONS: 1. will repeat blood culture x2 to confirm 2. monitor off antibiotics for now pending cultures 3. continue local wounds care and dressing changes for her pressure wounds as per hospital protocol thank you for the consult , will follow along with you Alexsander Shi M.D. Mar 26, 2018 23:56
[2018-03-27] VITALS (7 sets, daily range): BP systolic 89–116; BP diastolic 38–73
[2018-03-27] MEDS: Amiodarone 200mg tab ORAL SCH (09:00)
[2018-03-27] MEDS: Vitamin D 1000 IU Tab ORAL SCH (09:37)
[2018-03-27] MEDS: Zinc Sulfate 220mg cap ORAL SCH (09:37)
[2018-03-27] MEDS: Aspirin Baby 81mg ORAL SCH (09:38)
[2018-03-27] MEDS: Vitamin B Complex Tab ORAL SCH (09:38)
[2018-03-27] MEDS: Heparin 5000 units/ml inj SUBQ SCH ×2 (09:40→21:54)
--- NOTE | 2018-03-27 13:26 | General Progress Note ---
Assessment/Plan Assessment/Plan 1) Acute exacerbation of diastolic CHF 2) Profound dementia 3) Malnourished 4) CKD IV 5) Decubiti ulcers Plan: Will continue diuresis Will Check CXR PT + OT Subjective Allergies: Coded Allergies: MORPHINE (Verified Allergy, Mild, 03/02/09) HYDROMORPHONE (Verified Allergy, Unknown, 01/13/11) Subjective She is growing staph epidermidis on Blood Cx started on lanezolide per ID, good diuresis, much more alert Objective Last 24 Hour Vital Signs Date Time Temp Pulse Resp B/P (MAP) Pulse Ox O2 Delivery O2 Flow Rate FiO2 03/27/18 12:00 97.1 75 20 100/39 (59) 99 03/27/18 08:00 74 03/27/18 08:00 97.2 73 20 109/44 (65) 96 03/27/18 04:00 97.1 74 17 101/73 (82) 100 03/27/18 04:00 75 03/27/18 02:00 89/38 (55) 03/27/18 00:00 96.8 80 18 100/60 (73) 96 03/27/18 00:00 Nasal Cannula 2.0 03/27/18 00:00 75 03/26/18 20:00 97.0 99 20 114/77 (89) 97 03/26/18 20:00 Nasal Cannula 2.0 03/26/18 20:00 115 03/26/18 16:00 97.6 74 15 104/58 (73) 99 03/26/18 16:00 Nasal Cannula 2.0 03/26/18 16:00 64 Intake and Output 03/26/18 03/27/18 19:00 07:00 Output Total 1350 ml Balance -1350 ml Output Urine Total 1350 ml # Voids 1 1 # Bowel Movements 2 Height (Feet): 4 Height (Inches): 6.00 Weight (Pounds): 55 General Appearance: WD/WN, no apparent distress, alert EENT: PERRL/EOMI, normal ENT inspection Neck: normal alignment Cardiovascular: normal rate, regular rhythm Respiratory/Chest: decreased breath sounds, crackles/rales Abdomen: normal bowel sounds, non tender, no organomegaly Neurologic: spring coiler II-XII grossly normal, disoriented Kenyon Maldonado MD Mar 27, 2018 13:26
--- NOTE | 2018-03-27 14:35 | Infectious Diseases Prog Note ---
Assessment/Plan Problems: (1) Gram-positive cocci bacteremia Assessment & Plan: now growing from three bottles which is concerning for real bacteremia ,source most likely her sacral pressure wound . will will continue zyvox empiric coverage for now pending final blood culture and sensitivity . repeated blood culture x2 is negative so far . (2) Decubitus skin ulcer Assessment & Plan: of the sacrum and ischium , they don't look infected. continue local wounds care and dressings change as per wound care service (3) Renal insufficiency Assessment & Plan: chronic , monitor renal function, avoid nephrotoxics (4) Altered mental status Assessment & Plan: suspect metabolic, improving Subjective Constitutional: Reports: no symptoms HEENT: Reports: no symptoms Respiratory: Reports: no symptoms Breasts: Reports: no symptoms Cardiovascular: Reports: no symptoms Gastrointestinal/Abdominal: Reports: no symptoms Genitourinary: Reports: no symptoms Neurologic: Reports: weakness, confusion Psychiatric: Reports: no symptoms Skin: Reports: ulcer Endocrine: Reports: no symptoms Hematologic: Reports: no symptoms Musculoskeletal: Reports: pain Allergies: Coded Allergies: MORPHINE (Verified Allergy, Mild, 03/02/09) HYDROMORPHONE (Verified Allergy, Unknown, 01/13/11) Objective Vital Signs Last 24 Hour Vital Signs Date Time Temp Pulse Resp B/P (MAP) Pulse Ox O2 Delivery O2 Flow Rate FiO2 03/27/18 12:00 77 03/27/18 12:00 97.1 75 20 100/39 (59) 99 03/27/18 08:00 74 03/27/18 08:00 97.2 73 20 109/44 (65) 96 03/27/18 04:00 97.1 74 17 101/73 (82) 100 03/27/18 04:00 75 03/27/18 02:00 89/38 (55) 03/27/18 00:00 96.8 80 18 100/60 (73) 96 03/27/18 00:00 Nasal Cannula 2.0 03/27/18 00:00 75 03/26/18 20:00 97.0 99 20 114/77 (89) 97 03/26/18 20:00 Nasal Cannula 2.0 03/26/18 20:00 115 03/26/18 16:00 97.6 74 15 104/58 (73) 99 03/26/18 16:00 Nasal Cannula 2.0 03/26/18 16:00 64 Height (Feet): 4 Height (Inches): 6.00 Weight (Pounds): 55 General Appearance: WD/WN, no acute distress HEENT: normocephalic, atraumatic, anicteric, mucous membranes moist, PERRL Respiratory/Chest: chest wall non-tender, lungs clear, no respiratory distress , no accessory muscle use, decreased breath sounds, crackles/rales Cardiovascular: normal peripheral pulses, normal rate, regular rhythm, no gallop/murmur, no JVD Abdomen: normal bowel sounds, soft, non tender, no organomegaly, non distended , no mass, no scars Extremities: no cyanosis, no clubbing Skin: no rash, no lesions, ulcers Neurologic/Psychiatric: alert, responsive Lymphatic: no neck adenopathy, no groin adenopathy Musculoskeletal: atrophy Microbiology Date/Time Source Procedure Growth Status 03/25/18 22:06 Blood Blood Culture - Preliminary NO GROWTH AFTER 24 HOURS Resulted 03/25/18 22:00 Blood Blood Culture - Preliminary NO GROWTH AFTER 24 HOURS Resulted 03/24/18 15:30 Nasal Nares MRSA Culture - Final NO METHICILLIN RESISTANT STAPH AUREUS... Complete 03/25/18 05:00 Sacral Wound Gram Stain - Final Resulted 03/25/18 05:00 Sacral Wound Wound Culture - Preliminary Resulted 03/24/18 15:30 Rectum VRE Culture - Final Enterococcus Faecalis - Vre Complete 03/24/18 15:30 Rectum - Final NO CARBAPENEM-RESISTANT ENTEROBACTERI... Complete Current Medications Medications (Trade) Dose Ordered Sig/Dustin Route PRN Reason Start Time Stop Time Status Last Admin Dose Admin Amiodarone HCl (Cordarone) 100 mg DAILY ORAL 03/25/18 09:00 04/24/18 08:59 03/26/18 09:18 Aspirin (ASA) 81 mg DAILY ORAL 03/25/18 09:00 04/24/18 08:59 03/27/18 09:38 Furosemide (Lasix) 40 mg DAILY IV 03/25/18 18:30 04/24/18 18:29 03/27/18 09:38 Heparin Sodium (Porcine) (Heparin 5000 units/ml) 5,000 units EVERY 12 HOURS SUBQ 03/24/18 21:00 04/23/18 20:59 03/27/18 09:40 Letrozole (Femara) 2.5 mg DAILY ORAL 03/25/18 09:00 03/30/18 08:59 03/27/18 09:42 Levothyroxine Sodium (Synthroid) 100 mcg ACBREAKFAST ORAL 03/25/18 06:30 04/24/18 06:29 03/26/18 06:29 Linezolid 300 ml @ 300 mls/hr Q12HR IVPB 03/26/18 21:00 04/02/18 20:59 03/27/18 09:43 Vitamin B Complex (Vitamin B Complex) 1 tab DAILY ORAL 03/25/18 09:00 04/24/18 08:59 03/27/18 09:38 Vitamin D (Vitamin D) 1,000 intlu DAILY ORAL 03/25/18 09:00 04/24/18 08:59 03/27/18 09:37 Zinc Sulfate (Zinc Sulfate) 220 mg DAILY ORAL 03/25/18 09:00 04/24/18 08:59 03/27/18 09:37 Alexsander Shi M.D. Mar 27, 2018 14:35
--- NOTE | 2018-03-27 14:58 | Diagnostic Imaging Report ---
EXAM: XR Chest, 1 View CLINICAL HISTORY: DYSPNEA TECHNIQUE: Frontal view of the chest. COMPARISON: Chest x-ray dated 03/24/18 FINDINGS: Lungs: Persistent opacification in the left lung base, not significant change compared to the prior exam. Mildly increased interstitial markings. Pleural space: Unremarkable. The costophrenic angles are sharp. No visible pneumothorax. Heart: Unremarkable. No cardiomegaly. Mediastinum: Unremarkable. Bones/joints: Unremarkable. Vasculature: Atherosclerotic calcifications are noted within the aortic arch. Tubes, lines and devices: EKG leads overlie the thorax. IMPRESSION: 1. Persistent subsegmental atelectasis versus infiltrate in the left lung base, not significantly changed compared to the prior exam. 2. Mildly increased interstitial markings. This is nonspecific and may be related to chronic senescent changes versus mild pulmonary interstitial edema or interstitial pneumonitis.
[2018-03-28] VITALS: BP 90/49
[2018-03-28 04:00] VITALS: BP 90/50
[2018-03-28 08:00] VITALS: BP 108/66
[2018-03-28] MEDS: Amiodarone 200mg tab ORAL SCH ×2 (09:00→10:58)
[2018-03-28] MEDS: Aspirin Baby 81mg ORAL SCH (09:45)
[2018-03-28] MEDS: Vitamin B Complex Tab ORAL SCH (09:45)
[2018-03-28] MEDS: Vitamin D 1000 IU Tab ORAL SCH (09:45)
[2018-03-28] MEDS: Zinc Sulfate 220mg cap ORAL SCH (09:45)
[2018-03-28] MEDS: Heparin 5000 units/ml inj SUBQ SCH ×2 (09:47→21:00)
[2018-03-28 10:42] LABS: BASOPHILS % (AUTO) 0.7 % (0.0-2.0); EOSINOPHILS % (AUTO) 2.4 % (0.0-3.0); HEMATOCRIT 26.2 % (37.0-47.0); HEMOGLOBIN 8.2 G/DL (12.0-16.0); LYMPHOCYTES % (AUTO) 54.9 % (20.0-45.0); MEAN CORPUSCULAR VOLUME 82 FL (80-99); MONOCYTES % (AUTO) 7.8 % (1.0-10.0); NEUTROPHILS % (AUTO) 34.2 % (45.0-75.0); PLATELET COUNT 175 K/UL (150-450); RED BLOOD COUNT 3.18 M/UL (4.20-5.40); RED CELL DISTRIBUTION WIDTH 19.3 % (11.6-14.8); WHITE BLOOD COUNT 5.4 K/UL (4.8-10.8)
--- NOTE | 2018-03-28 10:59 | General Progress Note ---
Assessment/Plan Problem List: (1) Malnutrition of moderate degree ICD Codes: E44.0 - Moderate protein-calorie malnutrition SNOMED: 674336411 (2) Atelectasis ICD Codes: J98.11 - Atelectasis SNOMED: 08759928 (3) CHF (congestive heart failure), NYHA class II ICD Codes: I50.9 - Heart failure, unspecified SNOMED: 245788891, 558062993 (4) Decubitus ulcer of back ICD Codes: L89.109 - Pressure ulcer of unspecified part of back, unspecified stage SNOMED: 628203895 (5) Decubitus skin ulcer ICD Codes: L89.90 - Pressure ulcer of unspecified site, unspecified stage SNOMED: 135888213 (6) CAD (coronary artery disease) ICD Codes: I25.10 - Atherosclerotic heart disease of samish coronary artery without angina pectoris SNOMED: 46334817 (7) Anemia in chronic kidney disease ICD Codes: N18.9 - Chronic kidney disease, unspecified; D63.1 - Anemia in chronic kidney disease SNOMED: 308143453, 299119871 (8) CKD (chronic kidney disease) stage 5, GFR less than 15 ml/min ICD Codes: N18.5 - Chronic kidney disease, stage 5 SNOMED: 240188398 (9) Altered mental status ICD Codes: R41.82 - Altered mental status, unspecified SNOMED: 739094195, 604769574 (10) Gram-positive cocci bacteremia ICD Codes: R78.81 - Bacteremia SNOMED: 355526157, 643536612948 (11) Hypothyroid ICD Codes: E03.9 - Hypothyroidism, unspecified SNOMED: 44135143 Assessment/Plan bp low , possible over diuresis hydrate, [id number] per ID wound care Subjective ROS Limited/Unobtainable: Yes Allergies: Coded Allergies: MORPHINE (Verified Allergy, Mild, 03/02/09) HYDROMORPHONE (Verified Allergy, Unknown, 01/13/11) Objective Last 24 Hour Vital Signs Date Time Temp Pulse Resp B/P (MAP) Pulse Ox O2 Delivery O2 Flow Rate FiO2 03/28/18 08:00 97.0 64 20 108/66 (80) 97 03/28/18 04:00 59 03/28/18 04:00 97.2 70 18 90/50 (63) 97 1/13/19 00:00 70 03/28/18 00:00 97.5 70 17 90/49 (63) 98 03/27/18 21:00 Nasal Cannula 2.0 03/27/18 20:00 97.0 68 17 90/43 (59) 98 03/27/18 16:00 64 03/27/18 16:00 97.0 63 20 116/40 (65) 96 03/27/18 12:00 77 03/27/18 12:00 97.1 75 20 100/39 (59) 99 Intake and Output 03/27/18 03/28/18 19:00 07:00 Intake Total 300 ml Balance 300 ml Intake IV Total 300 ml # Voids 3 3 Laboratory Tests 03/28/18 10:05: White Blood Count 5.4, Red Blood Count 3.18L, Hemoglobin 8.2L, Hematocrit 26.2L , Mean Corpuscular Volume 82, Mean Corpuscular Hemoglobin 25.7L, Mean Corpuscular Hemoglobin Concent 31.2L, Red Cell Distribution Width 19.3H, Platelet Count 175, Mean Platelet Volume 6.4L, Neutrophils (%) (Auto) 34.2L, Lymphocytes (%) (Auto) 54.9H, Monocytes (%) (Auto) 7.8, Eosinophils (%) (Auto) 2.4, Basophils (%) (Auto) 0.7, Sodium Level [Pending], Potassium Level [Pending] , Chloride Level [Pending], Carbon Dioxide Level [Pending], Blood Urea Nitrogen [Pending], Creatinine [Pending], Estimat Glomerular Filtration Rate [Pending], Glucose Level [Pending], Calcium Level [Pending], Total Bilirubin [Pending], Aspartate Amino Transf (AST/SGOT) [Pending], Alanine Aminotransferase (ALT/SGPT ) [Pending], Alkaline Phosphatase [Pending], Total Protein [Pending], Albumin [ Pending], Globulin [Pending] Height (Feet): 4 Height (Inches): 6.00 Weight (Pounds): 55 General Appearance: no apparent distress, lethargic EENT: normal ENT inspection Neck: normal alignment Cardiovascular: normal rate, regular rhythm Respiratory/Chest: lungs clear Abdomen: non tender, soft Neurologic: hand sprayer II-XII grossly normal Skin: other - sacral and bilat trochter decubityi dry Malcolm Harrison MD Mar 28, 2018 10:59
[2018-03-28 11:08] LABS: ALANINE AMINOTRANSFERASE 23 U/L (12-78); ALBUMIN 2.3 G/DL (3.4-5.0); ALBUMIN/GLOBULIN RATIO 0.8 (1.0-2.7); ALKALINE PHOSPHATASE 79 U/L (46-116); ANION GAP 8 mmol/L (5-15); ASPARTATE AMINO TRANSFERASE 24 U/L (15-37); BILIRUBIN,TOTAL 0.2 MG/DL (0.2-1.0); BLOOD UREA NITROGEN 58 mg/dL (7-18); CALCIUM 9.7 MG/DL (8.5-10.1); CARBON DIOXIDE 25 MMOL/L (21-32); CHLORIDE 99 MMOL/L (98-107); CREATININE 2.4 MG/DL (0.55-1.30); POTASSIUM 4.8 MMOL/L (3.5-5.1); SODIUM 132 MMOL/L (136-145)
[2018-03-28 12:00] VITALS: BP 113/41
[2018-03-28 16:00] VITALS: BP 119/50
[2018-03-28] MEDS ORDERED: NS 275ml ONE (16:34)
[2018-03-28] MEDS ORDERED: Tubing IV Secondary IV ONE ×2 (16:34→16:38)
[2018-03-28] MEDS ORDERED: NS 500ML ONE (16:38)
--- NOTE | 2018-03-28 19:52 | Infectious Diseases Prog Note ---
Assessment/Plan Problems: (1) Gram-positive cocci bacteremia Assessment & Plan: due to staph epidermidis and capitis suspect all contaminants since repeated blood culture on the 10th was negative before starting any antibiotics , with no fever or elevated wbc, doubt real bacteremia , so will discontinue zyvox empiric coverage for now since repeated blood culture x2 is negative so far .monitor clinically off antibiotics (2) Decubitus skin ulcer Assessment & Plan: of the sacrum and ischium , they don't look infected. continue local wounds care and dressings change as per wound care service (3) Renal insufficiency Assessment & Plan: chronic , monitor renal function, avoid nephrotoxics (4) Altered mental status Assessment & Plan: suspect metabolic, improving Subjective Constitutional: Reports: no symptoms HEENT: Reports: no symptoms Respiratory: Reports: no symptoms Breasts: Reports: no symptoms Cardiovascular: Reports: no symptoms Gastrointestinal/Abdominal: Reports: no symptoms Genitourinary: Reports: no symptoms Neurologic: Reports: no symptoms Psychiatric: Reports: no symptoms Skin: Reports: no symptoms Endocrine: Reports: no symptoms Hematologic: Reports: no symptoms Musculoskeletal: Reports: no symptoms Allergies: Coded Allergies: MORPHINE (Verified Allergy, Mild, 03/02/09) HYDROMORPHONE (Verified Allergy, Unknown, 01/13/11) Objective Vital Signs Last 24 Hour Vital Signs Date Time Temp Pulse Resp B/P (MAP) Pulse Ox O2 Delivery O2 Flow Rate FiO2 03/28/18 16:00 96.9 66 20 119/50 (73) 97 03/28/18 16:00 67 03/28/18 12:00 97.1 63 20 113/41 (65) 96 03/28/18 12:00 62 03/28/18 09:00 Nasal Cannula 2.0 03/28/18 08:00 62 03/28/18 08:00 97.0 64 20 108/66 (80) 97 03/28/18 04:00 59 03/28/18 04:00 97.2 70 18 90/50 (63) 97 03/28/18 00:00 70 03/28/18 00:00 97.5 70 17 90/49 (63) 98 03/27/18 21:00 Nasal Cannula 2.0 03/27/18 20:00 97.0 68 17 90/43 (59) 98 Height (Feet): 4 Height (Inches): 6.00 Weight (Pounds): 55 General Appearance: WD/WN, no acute distress, cachetic HEENT: normocephalic, atraumatic, anicteric, mucous membranes moist, PERRL Respiratory/Chest: chest wall non-tender, lungs clear, normal breath sounds, no respiratory distress, no accessory muscle use Cardiovascular: normal peripheral pulses, normal rate, regular rhythm, no gallop/murmur, no JVD Abdomen: normal bowel sounds, soft, non tender, no organomegaly, non distended , no mass, no scars Genitourinary: normal external genitalia Extremities: no cyanosis, no clubbing Skin: no rash, no lesions, ulcers Neurologic/Psychiatric: alert, responsive Lymphatic: no neck adenopathy, no groin adenopathy Microbiology Date/Time Source Procedure Growth Status 03/25/18 22:06 Blood Blood Culture - Preliminary NO GROWTH AFTER 48 HOURS Resulted 03/25/18 22:00 Blood Blood Culture - Preliminary NO GROWTH AFTER 48 HOURS Resulted Laboratory Tests Test 03/28/18 10:05 White Blood Count 5.4 K/UL (4.8-10.8) Red Blood Count 3.18 M/UL (4.20-5.40) L Hemoglobin 8.2 G/DL (12.0-16.0) L Hematocrit 26.2 % (37.0-47.0) L Mean Corpuscular Volume 82 FL (80-99) Mean Corpuscular Hemoglobin 25.7 PG (27.0-31.0) L Mean Corpuscular Hemoglobin Concent 31.2 G/DL (32.0-36.0) L Red Cell Distribution Width 19.3 % (11.6-14.8) H Platelet Count 175 K/UL (150-450) Mean Platelet Volume 6.4 FL (6.5-10.1) L Neutrophils (%) (Auto) 34.2 % (45.0-75.0) L Lymphocytes (%) (Auto) 54.9 % (20.0-45.0) H Monocytes (%) (Auto) 7.8 % (1.0-10.0) Eosinophils (%) (Auto) 2.4 % (0.0-3.0) Basophils (%) (Auto) 0.7 % (0.0-2.0) Sodium Level 132 MMOL/L (136-145) L Potassium Level 4.8 MMOL/L (3.5-5.1) Chloride Level 99 MMOL/L (98-107) Carbon Dioxide Level 25 MMOL/L (21-32) Anion Gap 8 mmol/L (5-15) Blood Urea Nitrogen 58 mg/dL (7-18) H Creatinine 2.4 MG/DL (0.55-1.30) H Estimat Glomerular Filtration Rate mL/min (>60) Glucose Level 83 MG/DL (74-106) Calcium Level 9.7 MG/DL (8.5-10.1) Total Bilirubin 0.2 MG/DL (0.2-1.0) Aspartate Amino Transf (AST/SGOT) 24 U/L (15-37) Alanine Aminotransferase (ALT/SGPT) 23 U/L (12-78) Alkaline Phosphatase 79 U/L (46-116) Total Protein 5.3 G/DL (6.4-8.2) L Albumin 2.3 G/DL (3.4-5.0) L Globulin 3.0 g/dL Albumin/Globulin Ratio 0.8 (1.0-2.7) L Current Medications Medications (Trade) Dose Ordered Sig/Dustin Route PRN Reason Start Time Stop Time Status Last Admin Dose Admin Amiodarone HCl (Cordarone) 100 mg DAILY ORAL 03/25/18 09:00 04/24/18 08:59 03/28/18 10:58 Aspirin (ASA) 81 mg DAILY ORAL 03/25/18 09:00 04/24/18 08:59 03/28/18 09:45 Epoetin Dane (Procrit (for ESRD on dialysis)) 7,000 units [id number] SUBQ 03/29/18 21:00 04/28/18 20:59 Heparin Sodium (Porcine) (Heparin 5000 units/ml) 5,000 units EVERY 12 HOURS SUBQ 03/24/18 21:00 04/23/18 20:59 03/28/18 09:47 Iron Sucrose 100 mg/Sodium Chloride 60 ml @ 240 mls/hr BEDTIME IV 03/28/18 21:00 04/01/18 21:14 Letrozole (Femara) 2.5 mg DAILY ORAL 03/25/18 09:00 03/30/18 08:59 03/28/18 09:45 Levothyroxine Sodium (Synthroid) 100 mcg ACBREAKFAST ORAL 03/25/18 06:30 04/24/18 06:29 03/28/18 07:12 Linezolid 300 ml @ 300 mls/hr Q12HR IVPB 03/26/18 21:00 04/02/18 20:59 03/28/18 09:48 Sodium Chloride 1,000 ml @ 75 mls/hr [id number] IV 03/28/18 11:07 04/27/18 11:06 03/28/18 12:02 Vitamin B Complex (Vitamin B Complex) 1 tab DAILY ORAL 03/25/18 09:00 04/24/18 08:59 03/28/18 09:45 Vitamin D (Vitamin D) 1,000 intlu DAILY ORAL 03/25/18 09:00 04/24/18 08:59 03/28/18 09:45 Zinc Sulfate (Zinc Sulfate) 220 mg DAILY ORAL 03/25/18 09:00 04/24/18 08:59 03/28/18 09:45 Alexsander Shi M.D. Mar 28, 2018 19:52
[2018-03-28 20:00] VITALS: BP 113/67
[2018-03-28] MEDS ORDERED: Iron Sucrose 100 MG in NS 55 ML IV SCH (21:00)
[2018-03-29] VITALS: BP 109/72
[2018-03-29 08:00] VITALS: BP 107/54
[2018-03-29 08:07] LABS: BASOPHILS % (AUTO) 1.3 % (0.0-2.0); EOSINOPHILS % (AUTO) 2.6 % (0.0-3.0); HEMATOCRIT 26.1 % (37.0-47.0); LYMPHOCYTES % (AUTO) 43.4 % (20.0-45.0); MEAN CORPUSCULAR VOLUME 83 FL (80-99); MONOCYTES % (AUTO) 8.1 % (1.0-10.0); NEUTROPHILS % (AUTO) 44.6 % (45.0-75.0); PLATELET COUNT 182 K/UL (150-450); RED BLOOD COUNT 3.14 M/UL (4.20-5.40); RED CELL DISTRIBUTION WIDTH 19.6 % (11.6-14.8); WHITE BLOOD COUNT 4.8 K/UL (4.8-10.8)
[2018-03-29 08:45] LABS: ANION GAP 9 mmol/L (5-15); BLOOD UREA NITROGEN 58 mg/dL (7-18); CALCIUM 9.7 MG/DL (8.5-10.1); CARBON DIOXIDE 25 MMOL/L (21-32); CHLORIDE 101 MMOL/L (98-107); CREATININE 2.5 MG/DL (0.55-1.30); POTASSIUM 4.9 MMOL/L (3.5-5.1); SODIUM 135 MMOL/L (136-145)
[2018-03-29] MEDS: Amiodarone 200mg tab ORAL SCH (09:29)
[2018-03-29] MEDS: Vitamin B Complex Tab ORAL SCH (09:29)
[2018-03-29] MEDS: Zinc Sulfate 220mg cap ORAL SCH (09:29)
[2018-03-29] MEDS: Aspirin Baby 81mg ORAL SCH (09:29)
[2018-03-29] MEDS: Vitamin D 1000 IU Tab ORAL SCH (09:29)
[2018-03-29] MEDS: Heparin 5000 units/ml inj SUBQ SCH (09:31)
[2018-03-29 12:00] VITALS: BP 128/43
[2018-03-29 16:00] VITALS: BP 117/86
--- NOTE | 2018-03-29 16:09 | Infectious Diseases Prog Note ---
Assessment/Plan Problems: (1) Gram-positive cocci bacteremia Assessment & Plan: culture grew staph epidermidis and capitis suspect all contaminants since repeated blood culture on the 10th was negative before starting any antibiotics , with no fever or elevated wbc, doubt real bacteremia , so will keep off antibiotics coverage for now since repeated blood culture x2 is negative so far .monitor clinically off antibiotics (2) Decubitus skin ulcer Assessment & Plan: of the sacrum and ischium , don't look infected. continue local wounds care and dressings change as per wound care service (3) Renal insufficiency Assessment & Plan: chronic , monitor renal function, avoid nephrotoxics (4) Altered mental status Assessment & Plan: suspect metabolic, improved . Assessment/Plan plan of care was discussed with the daughter joel and the primary Dr Buchanan Subjective Constitutional: Reports: no symptoms HEENT: Reports: no symptoms Respiratory: Reports: no symptoms Breasts: Reports: no symptoms Cardiovascular: Reports: no symptoms Gastrointestinal/Abdominal: Reports: no symptoms Genitourinary: Reports: no symptoms Neurologic: Reports: no symptoms Psychiatric: Reports: no symptoms Skin: Reports: no symptoms Endocrine: Reports: no symptoms Hematologic: Reports: no symptoms Musculoskeletal: Reports: no symptoms Allergies: Coded Allergies: MORPHINE (Verified Allergy, Mild, 03/02/09) HYDROMORPHONE (Verified Allergy, Unknown, 01/13/11) Objective Vital Signs Last 24 Hour Vital Signs Date Time Temp Pulse Resp B/P (MAP) Pulse Ox O2 Delivery O2 Flow Rate FiO2 03/29/18 12:00 96.6 61 20 128/43 (71) 96 03/29/18 12:00 64 03/29/18 09:00 Nasal Cannula 2.0 03/29/18 08:00 97.1 64 20 107/54 (71) 99 03/29/18 08:00 63 03/29/18 04:00 65 03/29/18 00:00 97.5 76 17 109/72 (84) 98 03/29/18 00:00 69 03/28/18 21:00 Nasal Cannula 2.0 03/28/18 20:00 97.2 70 18 113/67 (82) 99 Height (Feet): 4 Height (Inches): 6.00 Weight (Pounds): 55 General Appearance: WD/WN, no acute distress, cachetic HEENT: normocephalic, atraumatic, anicteric, mucous membranes moist, PERRL, EOMI, pharynx normal, supple, no JVD Respiratory/Chest: chest wall non-tender, lungs clear, normal breath sounds, no respiratory distress, no accessory muscle use Cardiovascular: normal peripheral pulses, normal rate, regular rhythm, no gallop/murmur, no JVD Abdomen: normal bowel sounds, soft, non tender, no organomegaly, non distended , no mass, no scars Extremities: no cyanosis, no clubbing Skin: no rash, no lesions, ulcers Neurologic/Psychiatric: alert, responsive Lymphatic: no neck adenopathy, no groin adenopathy Musculoskeletal: normal muscle bulk Laboratory Tests Test 03/29/18 07:36 White Blood Count 4.8 K/UL (4.8-10.8) Red Blood Count 3.14 M/UL (4.20-5.40) L Hemoglobin 8.0 G/DL (12.0-16.0) L Hematocrit 26.1 % (37.0-47.0) L Mean Corpuscular Volume 83 FL (80-99) Mean Corpuscular Hemoglobin 25.5 PG (27.0-31.0) L Mean Corpuscular Hemoglobin Concent 30.6 G/DL (32.0-36.0) L Red Cell Distribution Width 19.6 % (11.6-14.8) H Platelet Count 182 K/UL (150-450) Mean Platelet Volume 5.8 FL (6.5-10.1) L Neutrophils (%) (Auto) 44.6 % (45.0-75.0) L Lymphocytes (%) (Auto) 43.4 % (20.0-45.0) Monocytes (%) (Auto) 8.1 % (1.0-10.0) Eosinophils (%) (Auto) 2.6 % (0.0-3.0) Basophils (%) (Auto) 1.3 % (0.0-2.0) Sodium Level 135 MMOL/L (136-145) L Potassium Level 4.9 MMOL/L (3.5-5.1) Chloride Level 101 MMOL/L (98-107) Carbon Dioxide Level 25 MMOL/L (21-32) Anion Gap 9 mmol/L (5-15) Blood Urea Nitrogen 58 mg/dL (7-18) H Creatinine 2.5 MG/DL (0.55-1.30) H Estimat Glomerular Filtration Rate mL/min (>60) Glucose Level 81 MG/DL (74-106) Calcium Level 9.7 MG/DL (8.5-10.1) Pro-B-Type Natriuretic Peptide 1289 pg/mL (0-125) H Thyroid Stimulating Hormone (TSH) 6.953 uiU/mL (0.358-3.740) Free Thyroxine 1.02 NG/DL (0.76-1.46) Current Medications Medications (Trade) Dose Ordered Sig/Dustin Route PRN Reason Start Time Stop Time Status Last Admin Dose Admin Amiodarone HCl (Cordarone) 100 mg DAILY ORAL 03/25/18 09:00 04/24/18 08:59 03/29/18 09:29 Aspirin (ASA) 81 mg DAILY ORAL 03/25/18 09:00 04/24/18 08:59 03/29/18 09:29 Epoetin Dane (Procrit (for ESRD on dialysis)) 7,000 units [id number] SUBQ 03/29/18 21:00 04/28/18 20:59 Heparin Sodium (Porcine) (Heparin 5000 units/ml) 5,000 units EVERY 12 HOURS SUBQ 03/24/18 21:00 04/23/18 20:59 03/29/18 09:31 Iron Sucrose 100 mg/Sodium Chloride 60 ml @ 240 mls/hr BEDTIME IV 03/28/18 21:00 04/01/18 21:14 03/28/18 21:00 Letrozole (Femara) 2.5 mg DAILY ORAL 03/25/18 09:00 03/30/18 08:59 03/29/18 09:30 Levothyroxine Sodium (Synthroid) 100 mcg ACBREAKFAST ORAL 03/25/18 06:30 04/24/18 06:29 03/29/18 06:15 Sodium Chloride 1,000 ml @ 75 mls/hr [id number] IV 03/28/18 11:07 04/27/18 11:06 03/29/18 06:15 Vitamin B Complex (Vitamin B Complex) 1 tab DAILY ORAL 03/25/18 09:00 04/24/18 08:59 03/29/18 09:29 Vitamin D (Vitamin D) 1,000 intlu DAILY ORAL 03/25/18 09:00 04/24/18 08:59 03/29/18 09:29 Zinc Sulfate (Zinc Sulfate) 220 mg DAILY ORAL 03/25/18 09:00 04/24/18 08:59 03/29/18 09:29 Alexsander Shi M.D. Mar 29, 2018 16:09
--- NOTE | 2018-03-29 18:01 | Cardiology Report ---
APPROVED REPORT EKG Measurement Heart [id number] Normal sinus rhythm Low voltage QRS Borderline ECG
--- NOTE | 2018-03-29 20:15 | Discharge Summary ---
DATE OF ADMISSION: 03/24/2018 DATE OF DISCHARGE: 03/29/2018 PERTINENT HISTORY: The patient is an 88-year-old lady with severe dementia, weakness, and decubitus who lives at home and the family does an excellent job taking care of her. She was seen by Dr. Maldonado on the day of admission while I was on vacation. The patient presented with increasing weakness and lethargy. There was concern of possible occult infection and questionable apical redistribution of the vessels on initial chest x-ray. She was started treatment for congestive heart failure. Subsequent blood cultures grew gram-positive cocci. PERTINENT PHYSICAL FINDINGS: HEAD, EYES, EARS, NOSE, AND THROAT: Unremarkable. NECK: Supple. HEART: Rhythm of irregular. LUNGS: A few crackles at the bases. ABDOMEN: Soft. NEUROLOGIC: She is confused and disoriented. No focal weakness. COURSE IN THE HOSPITAL: She was given initial treatment for CHF, but in retrospect, it is not clear completely if this was an exacerbation of CHF. She had altered mental status and a positive blood culture. Dr. Shi saw her in consultation and she was given linezolid, however, blood culture has actually grew Staphylococcus epidermidis and Staphylococcus capitis and after discussion with Dr. Shi, it was felt that these were contaminants and not true bacteremia. The patient did have some rise in BUN and creatinine and decreased urine output and was given a small amount of rehydration. She did have chronic kidney disease, stage 5 and moderate malnutrition. Her decubitus were dry, clean, and stable. She was given wound care. On the day of discharge, her vital signs were stable, lungs were clear, heart has regular rhythm, and abdomen was soft. She is able to tolerate a pureed diet and she was discharged home in stable condition. FINAL DIAGNOSES: 1. Questionable congestive heart failure with diastolic dysfunction versus atelectasis. 2. Alzheimer disease. 3. Decubitus, sacral and bilateral trochanter. 4. Bacteremia with Staphylococcus epidermidis and Staphylococcus capitis, which is likely contaminant. 5. Moderate protein-calorie malnutrition. 6. Chronic kidney disease, stage 5. 7. Anemia of renal disease. 8. History of paroxysmal atrial fibrillation, but she was in sinus rhythm on the day of discharge. DISCHARGE DISPOSITION: Home on a pureed diet. MEDICATIONS: Per the discharge medication list. FOLLOWUP: Follow up by her primary physician, Dr. Ladarius Garza. Malcolm Harrison M.D. DR: JULIO CESAR JOB#: [id number] CC:
[2018-03-29] MEDS ORDERED: Epogen (for ESRD on dialysis) SUBQ SCH (21:00)
== END 2018-03-29 20:30 | disposition home health service (06) | DRG 291 ==
LOC: EDBD 12:18 → EMR 12:33 → 2W 15:57 → EDBEDREQ 16:04 → 2W 21:43 → 2E 03-26 23:41
DX: I13.2 Hypertensive heart and chronic kidney disease with heart failure and with stage 5 chronic kidney disease, or end stage renal disease (principal); L89.154 Pressure ulcer of sacral region, stage 4; I50.33 Acute on chronic diastolic (congestive) heart failure; J98.11 Atelectasis; E44.0 Moderate protein-calorie malnutrition; N18.4 Chronic kidney disease, stage 4 (severe); Z68.1 Body mass index [BMI] 19.9 or less, adult; M19.012 Primary osteoarthritis, left shoulder; H35.30 Unspecified macular degeneration; Z88.6 Allergy status to analgesic agent; Z88.1 Allergy status to other antibiotic agents; G30.9 Alzheimer's disease, unspecified; F02.80 Dementia in other diseases classified elsewhere, unspecified severity, without behavioral disturbance, psychotic disturbance, mood disturbance, and anxiety; D63.1 Anemia in chronic kidney disease; I48.0 Paroxysmal atrial fibrillation; Z85.3 Personal history of malignant neoplasm of breast; Z85.72 Personal history of non-Hodgkin lymphomas; Z95.0 Presence of cardiac pacemaker; Z79.82 Long term (current) use of aspirin; L89.220 Pressure ulcer of left hip, unstageable; L89.210 Pressure ulcer of right hip, unstageable; E03.9 Hypothyroidism, unspecified
CPT/HCPCS: 36415; 70450; 71045; 80048; 80053; 81003; 82550; 82553; 82728; 83540; 83550; 83605; 83735; 83880; 84100; 84439; 84443; 84484; 85025; 87040; 87070; 87081; 87181; 87205; 93005; 93306; 93926; 93971; 96365; 96367; 96375; 99285

== ENCOUNTER 2018-05-12 13:44 | Outpatient (RCR) | payer MEDICARE, OTHER ==
[~2018-05-12 13:44] MED LIST changes: +PROPOLIS
== END 2018-05-13 | disposition home or self-care (01) ==
LOC: WCC 13:44
DX: L89.154 Pressure ulcer of sacral region, stage 4 (principal); L89.221 Pressure ulcer of left hip, stage 1; L89.211 Pressure ulcer of right hip, stage 1; M46.27 Osteomyelitis of vertebra, lumbosacral region; E43 Unspecified severe protein-calorie malnutrition; Z88.6 Allergy status to analgesic agent; Z90.49 Acquired absence of other specified parts of digestive tract; Z85.72 Personal history of non-Hodgkin lymphomas; M19.90 Unspecified osteoarthritis, unspecified site; D64.9 Anemia, unspecified; I51.9 Heart disease, unspecified; Z79.82 Long term (current) use of aspirin
CPT/HCPCS: 11043

== ENCOUNTER 2018-06-16 13:21 | Outpatient (RCR) | payer MEDICARE, OTHER | END 2018-07-13 | disposition home or self-care (01) | LOC: WCC 13:21 | DX: L89.154 Pressure ulcer of sacral region, stage 4 (principal); L89.213 Pressure ulcer of right hip, stage 3; L89.220 Pressure ulcer of left hip, unstageable; M46.27 Osteomyelitis of vertebra, lumbosacral region; E43 Unspecified severe protein-calorie malnutrition; D63.8 Anemia in other chronic diseases classified elsewhere; Z90.49 Acquired absence of other specified parts of digestive tract; Z88.6 Allergy status to analgesic agent; M19.90 Unspecified osteoarthritis, unspecified site; I51.9 Heart disease, unspecified; Z85.72 Personal history of non-Hodgkin lymphomas; Z79.82 Long term (current) use of aspirin; Z79.899 Other long term (current) drug therapy | CPT/HCPCS: 11043 ==